=== PATIENT | male | born 1945 | race Caucasian/White ===

== ENCOUNTER 2019-09-29 11:08 | Inpatient (IN) | payer BC, OTHER ==
[~2019-09-29] VITALS: Ht 177.8 cm; Wt 69.9 kg
--- OUTSIDE RECORDS SUMMARY | 2019-09-29 11:12 | XMS REPORT | Clinical Summary ---
Author Author [facility] Address Unknown Phone Unavailable Care Team Providers Care Fireproof Door Assembler Name Role Phone Akira Velasquez MD PCP [phone] Allergies Comments Active Allergy Reactions Severity Noted Date Vomiting Cauliflower Other (See 01/20/2017 Comments) Detergent gain: swelling of lips and face Soap Swelling 01/20/2017 Medications End Date Status Medication Sig Dispensed Refills Start Date Active PROAIR HFA 90 Inhale 2 0 mcg/actuation inhaler puffs every 6 7 (six) hours as needed. Active gabapentin (NEURONTIN) Take 600 mg 0 01 600 mg tablet by mouth 3 7 (three) times a day. Active pantoprazole (PROTONIX) Take 40 mg by 0 40 MG EC tablet mouth daily. 7 Active aspirin (ECOTRIN) 81 MG Take 81 mg by 0 enteric coated tablet mouth daily. Active simvastatin (ZOCOR) 40 MG Take 40 mg by 0 tablet mouth nightly. Active lisinopril Take 1 tablet 30 tablet 0 (PRINIVIL,ZESTRIL) 10 mg (10 mg total) 8 tablet by mouth daily for 30 days. Active metFORMIN (GLUCOPHAGE) 0 500 mg tablet 9 Active sildenafil (VIAGRA) 100 1 MG tablet 9 Active SPIRIVA WITH HANDIHALER Place 1 0 18 mcg per inhalation capsule into 9 capsule inhaler and inhale once daily. Active metoprolol tartrate Take 0.5 30 tablet 0 (LOPRESSOR) 25 mg tablet tablets (12.5 9 mg total) by mouth 2 (two) times a day. 10/25/2019 Active DULoxetine (CYMBALTA) 30 Take 1 30 capsule 0 0 MG capsule capsule (30 0 mg total) by mouth daily for 30 days. 10/25/2019 Active sodium chloride 1 gram Take 1 tablet 60 tablet 0 0 tablet (1 g total) 0 by mouth 2 (two) times a day with meals for 30 days. 10/25/2019 Active collagenase (Santyl) Apply 30 g 1 09/24 ointment topically 0 daily for 30 days. Active calcium alginate-honey Apply 1 60 each 2 3/4 X 12 " bandage application 0 topically as needed (s needed during wound care). 09/25/2019 Discontinued (Stop Taking at Discharge) DULoxetine (CYMBALTA) 60 Take 60 mg by 0 11/21 MG capsule mouth daily. 7 03/10/2019 Discontinued (Reorder) metoprolol tartrate Take 25 mg by 0 (LOPRESSOR) 25 mg tablet mouth 2 (two) times a day. 05/26/2019 Discontinued (Stop Taking at Discharge) traZODone (DESYREL) 100 300 mg 0 MG tablet nightly. 8 11/24/2018 Discontinued (Stop Taking at Discharge) HYDROcodone-acetaminophen Take 1 tablet 0 (NORCO) 5-325 mg per by mouth tablet every 6 (six) hours as needed for moderate pain. 09/25/2019 Discontinued (Stop Taking at Discharge) clonAZEPAM (KlonoPIN) 1 Take 1 mg by 0 MG tablet mouth 3 9 (three) times a day as needed. for anxiety 11/24/2018 Discontinued (Stop Taking at Discharge) traMADol (ULTRAM) 50 mg TAKE 1 TABLET 0 tablet BY MOUTH 4 9 TIMES DAILY NEEDED FOR PAIN 11/28/2018 predniSONE (DELTASONE) 20 Take 2 6 tablet 0 mg tablet tablets (40 9 mg total) by mouth daily for 3 days. 03/15/2019 methylPREDNISolone follow 21 tablet 0 01 (MEDROL, KENDELL,) 4 mg package 9 tablet directions 03/17/2019 nicotine (NICODERM CQ) 21 Place 1 patch 7 patch 0 mg/24 hr on the skin 9 daily for 7 days. 04/13/2019 HYDROcodone-acetaminophen Take 1 tablet 20 tablet 0 (NORCO) 10-325 mg per by mouth 9 tabletIndications: acute every 8 pain (eight) hours as needed for moderate pain (pain) for up to 5 days .Acute Pain. Max Daily Amount: 3 tablets 04/11/2019 levoFLOXacin (LEVAQUIN) Take 1 tablet 3 tablet 0 500 MG tablet (500 mg 9 total) by mouth daily for 3 days. 05/02/2019 metroNIDAZOLE (FLAGYL) Take 1 tablet 21 tablet 0 1 500 MG tablet (500 mg 9 total) by mouth 3 (three) times a day for 7 days. 05/30/2019 azithromycin (ZITHROMAX) Take 2 6 tablet 0 0 250 MG tablet tablets the 0 first day, then 1 tablet daily for 4 days. 05/31/2019 predniSONE (DELTASONE) 20 Take 1 tablet 5 tablet 0 mg tablet (20 mg total) 0 by mouth daily for 5 days. 09/25/2019 Discontinued DULoxetine (CYMBALTA) 30 Take 1 30 capsule 0 0 MG capsule capsule (30 0 mg total) by mouth daily for 30 days. 09/25/2019 Discontinued (Stop Taking at Discharge) sodium chloride 1 gram Take 1 tablet 42 tablet 0 0 tablet (1 g total) 0 by mouth 3 (three) times a day with meals for 14 days. 09/25/2019 Discontinued sodium chloride 1 gram Take 1 tablet 60 tablet 0 0 tablet (1 g total) 0 by mouth 2 (two) times a day with meals for 30 days. Active Problems Problem Noted Date Hyponatremia 09/25/2019 Electrolyte abnormality 09/21/2019 Fall 09/20/2019 COPD exacerbation 03/09/2019 Acute metabolic encephalopathy 11/24/2018 Altered mental state 2018 Shortness of breath 2018 Acute respiratory failure with hypercapnia 9 Chest pain 06/01/2018 Alcohol abuse 06/01/2018 Altered mental status 02/28/2018 Alcohol withdrawal syndrome, with delirium 8 Hypoxia 11/13/2017 Chronic respiratory failure with hypoxia 11/13/2017 COPD with acute exacerbation 11/11/2017 Acute on chronic respiratory failure with hypercapnia 10/29/2017 Respiratory failure 10/29/2017 Altered mental status 10/28/2017 COPD (chronic obstructive pulmonary disease) 018 Stable angina pectoris 05/07/2017 Hypertension Depression Coronary artery disease Diabetes mellitus Encounters Care Team Description Date Type Specialty Jaycob Agarwal MD Roberts, Matthew Thomas, DO Rizvi, Farhan, MD Neela, Sravanthi Parrish MD Hyponatremia (Primary Dx); Fall, initial encounter; Electrolyte abnormality 09/20/2019 Hospital General Surgery - Encounter 09/25/2019 09/20/2019 Travel Akira Velasquez MD Thoracic aortic aneurysm, ruptured (HCC) (Primary Dx) 08/11/2019 Transcribe Access Orders Hubert Babin MD Abouelseoud, Tanseem Hamad Mohamed A, MD Joglekar, Swati, MD COPD exacerbation (HCC) (Primary Dx) 05/25/2019 Emergency General Internal Dc dicine - 05/26/2019 Lane Ramírez MD Epigastric abdominal pain (Primary Dx); Pancreatic cyst; Hyponatremia; Diarrhea, unspecified type 04/25/2019 Emergency Emergency Medicine Wale Morgan DO 04/08/2019 Anticoagulation General Internal Dc dicine Visit Hubert Babin MD Roberts, Matthew Thomas, DO COPD exacerbation (HCC) (Primary Dx) 04/05/2019 Hospital General Internal Dc dicine - Encounter 04/08/2019 Mack Ruvalcaba MD Rizvi, Farhan, MD COPD exacerbation (HCC) (Primary Dx) 03/09/2019 Emergency General Internal Dc dicine - 03/10/2019 Jaycob Agarwal MD Rizvi, Farhan, MD Bavare, Arusha Amod, MD Shortness of breath (Primary Dx); Chronic obstructive pulmonary disease with acute exacerbation (HCC) 2018 [facility] General Internal Dc dicine - Encounter 11/24/2018 2018 Travel after 09/28/2018 Immunizations Name Administration Dates Next Due FLUCELVAX QUAD PF 03/10/2019, 01/24/2018, 10/2016 Pneumococcal Conjugate 03/10/2019 (Deferred: - yang brown states he just 14-Valent now remembers he received w ithin 5 years), 10/08/2017 Social History Date Tobacco Use Types Packs/Day Years Used Current Every Day Smoker Cigarettes 3 60 Smokeless Tobacco: Never Used Tobacco Cessation: Ready to Quit: No; Co unseling Given: Yes Comments: started at 11 years of age Drinks/Week oz/Week Comments Alcohol Use 6 Cans of beer 6.0 daily Yes Sex Assigned at Date Recorded Not on file Industry Job Start Date Occupation Not on file Not on file Not on file Travel End Travel History Travel Start No recent travel history available. Date Recorded COVID-19 Exposure Response 09/20/2019 5:07 PM CDT In the last month, have you been in contact with No / Unsure someone who was confirmed or suspected to have Coronavirus / COVID-19? Last Filed Vital Signs Reading Time Taken Comments Vital Sign 138/76 09/25/2019 3:49 PM CDT Blood Pressure 82 09/25/2019 3:49 PM CDT Pulse 37 C (98.6 F) 09/25/2019 3:49 PM CDT Temperature 20 09/25/2019 3:49 PM CDT Respiratory Rate 95% 09/25/2019 3:49 PM CDT Oxygen Saturation - - Inhaled Oxygen Concentration 68 kg (150 lb) 09/20/2019 2:37 PM CDT Weight 177.8 cm (5' 10") 09/20/2019 2:37 PM CDT Height 21.52 09/20/2019 2:37 PM CDT Body Mass Index Plan of Treatment Health Maintenance Due Date Last Done Comments DIABETIC RETINAL EYE EXAM 1945 DIABETIC FOOT EXAM 1956 URINE MICROALBUMIN 1956 COLONOSCOPY SCREENING 1996 SHINGLES VACCINES (#1) 1996 65+ PNEUMOCOCCAL VACCINE 10/08/2018 10/08/2017 (2 of 2 - PPSV23) INFLUENZA VACCINE 12/19/2019 03/10/2019, 01/24/2018, 01/23/2017 Procedures Comments Procedure Name Priority Date/Time Associated Diag nosis POC GLUCOSE Routine 09/25/2019 11:53 AM CDT POC GLUCOSE Routine 09/25/2019 6:12 AM CDT ESTIMATED GFR Routine 09/25/2019 4:52 AM CDT CBC HEMOGRAM Routine 09/25/2019 4:52 AM CDT MAGNESIUM LEVEL Routine 09/25/2019 4:52 AM CDT BASIC METABOLIC PANEL Routine 09/25/2019 4:52 AM CDT POC GLUCOSE Routine 09/24/2019 8:29 PM CDT POC GLUCOSE Routine 09/24/2019 5:21 PM CDT CBC HEMOGRAM Routine 09/24/2019 12:03 PM CDT POC GLUCOSE Routine 09/24/2019 11:44 AM CDT TOTAL IRON BINDING Routine 09/24/2019 CAPACITY 11:10 AM CDT FERRITIN LEVEL Routine 09/24/2019 11:10 AM CDT POC GLUCOSE Routine 09/24/2019 6:04 AM CDT ESTIMATED GFR Routine 09/24/2019 4:28 AM CDT MAGNESIUM LEVEL Routine 09/24/2019 4:28 AM CDT BASIC METABOLIC PANEL Routine 09/24/2019 4:28 AM CDT POC GLUCOSE Routine 09/23/2019 8:57 PM CDT POC GLUCOSE Routine 09/23/2019 4:07 PM CDT POC GLUCOSE Routine 09/23/2019 11:38 AM CDT POC GLUCOSE Routine 09/23/2019 5:45 AM CDT ESTIMATED GFR Routine 09/23/2019 4:25 AM CDT CBC HEMOGRAM Routine 09/23/2019 4:25 AM CDT MAGNESIUM LEVEL Routine 09/23/2019 4:25 AM CDT BASIC METABOLIC PANEL Routine 09/23/2019 4:25 AM CDT POC GLUCOSE Routine 09/22/2019 8:20 PM CDT POC GLUCOSE Routine 09/22/2019 4:01 PM CDT POC GLUCOSE Routine 09/22/2019 11:42 AM CDT POC GLUCOSE Routine 09/22/2019 6:03 AM CDT ESTIMATED GFR Routine 09/22/2019 5:24 AM CDT PHOSPHORUS LEVEL Routine 09/22/2019 5:24 AM CDT MAGNESIUM LEVEL Routine 09/22/2019 5:24 AM CDT BASIC METABOLIC PANEL Routine 09/22/2019 5:24 AM CDT SODIUM LEVEL, URINE, Routine 09/22/2019 RANDOM 2:37 AM CDT PROTEIN, URINE, RANDOM Routine 09/22/2019 2:37 AM CDT CREATININE LEVEL, URINE, Routine 09/22/2019 RANDOM 2:37 AM CDT OSMOLALITY, URINE Routine 09/22/2019 2:37 AM CDT URINALYSIS SCREEN AND Routine 09/22/2019 MICROSCOPY, WITH REFLEX 2:37 AM CDT TO CULTURE URINE CULTURE Routine 09/22/2019 2:37 AM CDT POC GLUCOSE Routine 09/21/2019 8:15 PM CDT MRI BRAIN WO CONTRAST Routine 09/21/2019 6:28 PM CDT POC GLUCOSE Routine 09/21/2019 4:32 PM CDT TTE COMPLETE, WO Routine 09/21/2019 CONTRAST, W DOPPLER 4:18 PM CDT (18985) SODIUM LEVEL Timed 09/21/2019 4:09 PM CDT ESTIMATED GFR Timed 09/21/2019 1:14 PM CDT BASIC METABOLIC PANEL Timed 09/21/2019 1:14 PM CDT TROPONIN Timed 09/21/2019 1:14 PM CDT OSMOLALITY, SERUM Routine 09/21/2019 1:14 PM CDT XR CHEST 2 VW Routine 09/21/2019 12:37 PM CDT TROPONIN Timed 09/21/2019 11:52 AM CDT POC GLUCOSE Routine 09/21/2019 10:57 AM CDT CREATINE KINASE, TOTAL Routine 09/21/2019 (CPK) 9:28 AM CDT TROPONIN Timed 09/21/2019 9:28 AM CDT OSMOLALITY, SERUM Routine 09/21/2019 9:[address] HEAD WO CONTRAST Routine 09/21/2019 9:25 AM CDT POC GLUCOSE Routine 09/21/2019 6:38 AM CDT ECG 12-LEAD Routine 09/21/2019 5:54 AM CDT HEMOGLOBIN A1C Routine 09/21/2019 5:19 AM CDT THYROID STIMULATING Routine 09/21/2019 HORMONE 5:19 AM CDT ESTIMATED GFR Routine 09/21/2019 5:19 AM CDT BASIC METABOLIC PANEL Routine 09/21/2019 5:19 AM CDT HC COMPLETE BLD COUNT Routine 09/21/2019 W/AUTO DIFF 5:19 AM CDT TROPONIN Timed 09/21/2019 3:17 AM CDT US DUPLEX VENOUS LOWER STAT 09/21/2019 EXTREMITY LEFT 12:45 AM CDT POC GLUCOSE Routine 09/20/2019 9:47 PM CDT TROPONIN Timed 09/20/2019 9:28 PM CDT ESTIMATED GFR STAT 09/20/2019 6:46 PM CDT LIPASE LEVEL STAT 09/20/2019 6:46 PM CDT B NATRIURETIC PEPTIDE STAT 09/20/2019 6:46 PM CDT TROPONIN STAT 09/20/2019 6:46 PM CDT HEPATIC FUNCTION PANEL STAT 09/20/2019 6:46 PM CDT BASIC METABOLIC PANEL STAT 09/20/2019 6:46 PM CDT HC COMPLETE BLD COUNT STAT 09/20/2019 W/AUTO DIFF 6:46 PM CDT XR KNEE 4+ VW LEFT STAT 09/20/2019 4:58 PM CDT XR TIBIA FIBULA 2 VW LEFT STAT 09/20/2019 4:57 PM CDT MANUAL DIFFERENTIAL Routine 05/26/2019 4:47 AM SOURCING ASSOCIATE ESTIMATED GFR Routine 05/26/2019 4:47 AM SOURCING ASSOCIATE CBC WITH PLATELET AND Routine 05/26/2019 DIFFERENTIAL 4:47 AM SOURCING ASSOCIATE COMPREHENSIVE METABOLIC Routine 05/26/2019 PANEL 4:47 AM SOURCING ASSOCIATE INFLUENZA ANTIGEN Routine 05/26/2019 4:00 AM SOURCING ASSOCIATE RESPIRATORY PATHOGEN Routine 05/26/2019 PANEL 4:00 AM SOURCING ASSOCIATE POC GLUCOSE Routine 05/25/2019 10:05 PM SOURCING ASSOCIATE HEMOGLOBIN A1C STAT 05/25/2019 9:38 PM SOURCING ASSOCIATE POC GLUCOSE Routine 05/25/2019 9:32 PM SOURCING ASSOCIATE LACTIC ACID LEVEL, SEPSIS Timed 05/25/2019 - NOW AND REPEAT 2X EVERY 8:59 PM SOURCING ASSOCIATE 3 HOURS URINALYSIS SCREEN AND STAT 05/25/2019 MICROSCOPY, WITH REFLEX 7:26 PM SOURCING ASSOCIATE TO CULTURE URINE CULTURE STAT 05/25/2019 7:26 PM SOURCING ASSOCIATE LACTIC ACID LEVEL, SEPSIS Timed 05/25/2019 - NOW AND REPEAT 2X EVERY 6:06 PM SOURCING ASSOCIATE 3 HOURS CONSULT TO SEPSIS Routine 05/25/2019 COPD exacerb ation (HCC) RESPONSE TEAM 4:40 PM SOURCING ASSOCIATE ESTIMATED GFR Routine 05/25/2019 4:01 PM SOURCING ASSOCIATE COMPREHENSIVE METABOLIC Routine 05/25/2019 PANEL 4:01 PM SOURCING ASSOCIATE HC COMPLETE BLD COUNT Routine 05/25/2019 W/AUTO DIFF 4:01 PM SOURCING ASSOCIATE LACTIC ACID LEVEL, SEPSIS Timed 05/25/2019 - NOW AND REPEAT 2X EVERY 3:25 PM SOURCING ASSOCIATE 3 HOURS BLOOD CULTURE, AEROBIC & Routine 05/25/2019 ANAEROBIC 3:25 PM SOURCING ASSOCIATE BLOOD CULTURE, AEROBIC & Routine 05/25/2019 ANAEROBIC 3:21 PM SOURCING ASSOCIATE XR CHEST 1 VW PORTABLE STAT 05/25/2019 2:56 PM SOURCING ASSOCIATE ECG ED PRELIMINARY Routine 05/25/2019 INTERPRETATION 2:50 PM SOURCING ASSOCIATE ECG 12-LEAD STAT 05/25/2019 12:[address] ABDOMEN PELVIS W STAT 04/25/2019 CONTRAST 10:42 AM SOURCING ASSOCIATE URINE DRUGS OF ABUSE STAT 04/25/2019 SCREEN 10:11 AM SOURCING ASSOCIATE URINALYSIS SCREEN AND STAT 04/25/2019 MICROSCOPY, WITH REFLEX 10:11 AM SOURCING ASSOCIATE TO CULTURE URINE CULTURE STAT 04/25/2019 10:11 AM SOURCING ASSOCIATE TROPONIN Timed 04/25/2019 10:00 AM SOURCING ASSOCIATE ESTIMATED GFR STAT 04/25/2019 9:30 AM SOURCING ASSOCIATE LIPASE LEVEL STAT 04/25/2019 9:30 AM SOURCING ASSOCIATE COMPREHENSIVE METABOLIC STAT 04/25/2019 PANEL 9:30 AM SOURCING ASSOCIATE HC COMPLETE BLD COUNT STAT 04/25/2019 W/AUTO DIFF 9:30 AM SOURCING ASSOCIATE POC GLUCOSE Routine 04/08/2019 2:47 PM SOURCING ASSOCIATE POC GLUCOSE Routine 04/08/2019 11:28 AM SOURCING ASSOCIATE POC GLUCOSE Routine 04/08/2019 6:29 AM SOURCING ASSOCIATE ESTIMATED GFR Routine 04/08/2019 4:46 AM SOURCING ASSOCIATE BASIC METABOLIC PANEL Routine 04/08/2019 4:46 AM SOURCING ASSOCIATE POC GLUCOSE Routine 04/07/2019 8:19 PM SOURCING ASSOCIATE POC GLUCOSE Routine 04/07/2019 4:40 PM SOURCING ASSOCIATE XR HIP 2-3 VIEWS LEFT Routine 04/07/2019 3:00 PM SOURCING ASSOCIATE XR FEMUR 2 VW LEFT Routine 04/07/2019 2:59 PM SOURCING ASSOCIATE POC GLUCOSE Routine 04/07/2019 10:48 AM SOURCING ASSOCIATE ESTIMATED GFR Timed 04/07/2019 8:47 AM SOURCING ASSOCIATE BASIC METABOLIC PANEL Timed 04/07/2019 8:47 AM SOURCING ASSOCIATE POC GLUCOSE Routine 04/07/2019 6:30 AM SOURCING ASSOCIATE POC GLUCOSE Routine 04/06/2019 8:38 PM SOURCING ASSOCIATE ESTIMATED GFR Timed 04/06/2019 8:36 PM SOURCING ASSOCIATE BASIC METABOLIC PANEL Timed 04/06/2019 8:36 PM SOURCING ASSOCIATE POC GLUCOSE Routine 04/06/2019 4:33 PM SOURCING ASSOCIATE OSMOLALITY, URINE Routine 04/06/2019 11:08 AM SOURCING ASSOCIATE SODIUM LEVEL, URINE, Routine 04/06/2019 RANDOM 11:08 AM SOURCING ASSOCIATE POC GLUCOSE Routine 04/06/2019 11:[address] ANGIOGRAM ABDOMEN Routine 04/06/2019 PELVIS W AND OR WO 9:42 AM SOURCING ASSOCIATE CONTRAST ESTIMATED GFR Routine 04/06/2019 6:59 AM SOURCING ASSOCIATE PHOSPHORUS LEVEL Routine 04/06/2019 6:59 AM SOURCING ASSOCIATE MAGNESIUM LEVEL Routine 04/06/2019 6:59 AM SOURCING ASSOCIATE COMPREHENSIVE METABOLIC Routine 04/06/2019 PANEL 6:59 AM SOURCING ASSOCIATE CBC WITH PLATELET AND Routine 04/06/2019 DIFFERENTIAL 6:59 AM SOURCING ASSOCIATE POC GLUCOSE Routine 04/06/2019 6:23 AM SOURCING ASSOCIATE ESTIMATED GFR Timed 04/06/2019 12:28 AM SOURCING ASSOCIATE BASIC METABOLIC PANEL Timed 04/06/2019 12:28 AM SOURCING ASSOCIATE TROPONIN Timed 04/06/2019 12:28 AM SOURCING ASSOCIATE RESPIRATORY PATHOGEN Routine 04/05/2019 PANEL 10:41 PM SOURCING ASSOCIATE POC GLUCOSE Routine 04/05/2019 8:26 PM SOURCING ASSOCIATE THYROID STIMULATING Routine 04/05/2019 HORMONE 7:33 PM SOURCING ASSOCIATE OSMOLALITY, SERUM Routine 04/05/2019 7:33 PM SOURCING ASSOCIATE ESTIMATED GFR Timed 04/05/2019 7:33 PM SOURCING ASSOCIATE BASIC METABOLIC PANEL Timed 04/05/2019 7:33 PM SOURCING ASSOCIATE TROPONIN Timed 04/05/2019 7:33 PM SOURCING ASSOCIATE POC GLUCOSE Routine 04/05/2019 5:26 PM SOURCING ASSOCIATE ECG 12-LEAD Routine 04/05/2019 4:30 PM SOURCING ASSOCIATE TROPONIN Timed 04/05/2019 2:02 PM SOURCING ASSOCIATE ESTIMATED GFR Timed 04/05/2019 2:02 PM SOURCING ASSOCIATE BASIC METABOLIC PANEL Timed 04/05/2019 2:02 PM SOURCING ASSOCIATE HEMOGLOBIN A1C Routine 04/05/2019 12:01 PM SOURCING ASSOCIATE LIPID PANEL Routine 04/05/2019 12:01 PM SOURCING ASSOCIATE OSMOLALITY, SERUM Routine 04/05/2019 12:01 PM SOURCING ASSOCIATE ESTIMATED GFR Timed 04/05/2019 12:01 PM SOURCING ASSOCIATE BASIC METABOLIC PANEL Timed 04/05/2019 12:01 PM SOURCING ASSOCIATE POC GLUCOSE Routine 04/05/2019 11:[address] CHEST W CONTRAST STAT 04/05/2019 9:40 AM SOURCING ASSOCIATE SODIUM LEVEL, URINE, Routine 04/05/2019 RANDOM 9:33 AM SOURCING ASSOCIATE OSMOLALITY, URINE Routine 04/05/2019 9:33 AM SOURCING ASSOCIATE TROPONIN Timed 04/05/2019 8:14 AM SOURCING ASSOCIATE PHOSPHORUS LEVEL Timed 04/05/2019 8:14 AM SOURCING ASSOCIATE MAGNESIUM LEVEL Timed 04/05/2019 8:14 AM SOURCING ASSOCIATE XR CHEST 2 VW STAT 04/05/2019 6:41 AM SOURCING ASSOCIATE ECG ED PRELIMINARY Routine 04/05/2019 INTERPRETATION 6:11 AM SOURCING ASSOCIATE OK CRITICAL CARE, E/M Routine 04/05/2019 30-74 MINUTES 6:11 AM SOURCING ASSOCIATE ESTIMATED GFR STAT 04/05/2019 5:30 AM SOURCING ASSOCIATE B NATRIURETIC PEPTIDE STAT 04/05/2019 5:30 AM SOURCING ASSOCIATE TROPONIN STAT 04/05/2019 5:30 AM SOURCING ASSOCIATE HC COMPLETE BLD COUNT STAT 04/05/2019 W/AUTO DIFF 5:30 AM SOURCING ASSOCIATE COMPREHENSIVE METABOLIC STAT 04/05/2019 PANEL 5:30 AM SOURCING ASSOCIATE ECG 12-LEAD Routine 04/05/2019 5:26 AM SOURCING ASSOCIATE ECG 12-LEAD STAT 04/05/2019 5:26 AM SOURCING ASSOCIATE POC GLUCOSE Routine 03/10/2019 11:55 AM CDT POC GLUCOSE Routine 03/10/2019 6:14 AM CDT ESTIMATED GFR Routine 03/10/2019 4:33 AM CDT BASIC METABOLIC PANEL Routine 03/10/2019 4:33 AM CDT POC GLUCOSE Routine 03/09/2019 8:58 PM CDT POC GLUCOSE Routine 03/09/2019 3:55 PM CDT RESPIRATORY PATHOGEN Routine 03/09/2019 PANEL 12:31 PM CDT TTE COMPLETE, WO Routine 03/09/2019 CONTRAST, W DOPPLER 11:52 AM CDT (26664) POC GLUCOSE Routine 03/09/2019 10:45 AM CDT TROPONIN Timed 03/09/2019 6:07 AM CDT XR CHEST 1 VW PORTABLE STAT 03/09/2019 1:54 AM CDT ECG ED PRELIMINARY Routine 03/09/2019 INTERPRETATION 1:42 AM CDT ESTIMATED GFR STAT 03/09/2019 1:37 AM CDT B NATRIURETIC PEPTIDE STAT 03/09/2019 1:37 AM CDT TROPONIN STAT 03/09/2019 1:37 AM CDT COMPREHENSIVE METABOLIC STAT 03/09/2019 PANEL 1:37 AM CDT HC COMPLETE BLD COUNT STAT 03/09/2019 W/AUTO DIFF 1:37 AM CDT ECG 12-LEAD STAT 03/09/2019 1:32 AM CDT POC GLUCOSE Routine 11/24/2018 11:35 AM CDT LACTIC ACID LEVEL STAT 11/24/2018 11:10 AM CDT POC GLUCOSE Routine 11/24/2018 7:22 AM CDT ESTIMATED GFR Routine 11/24/2018 5:50 AM CDT HC COMPLETE BLD COUNT Routine 11/24/2018 W/AUTO DIFF 5:50 AM CDT BASIC METABOLIC PANEL Routine 11/24/2018 5:50 AM CDT POC GLUCOSE Routine 11/23/2018 4:15 PM CDT POC GLUCOSE Routine 11/23/2018 11:23 AM CDT POC GLUCOSE Routine 11/23/2018 7:02 AM CDT PHOSPHORUS LEVEL Routine 11/23/2018 6:12 AM CDT MAGNESIUM LEVEL Routine 11/23/2018 6:12 AM CDT ESTIMATED GFR Routine 11/23/2018 6:12 AM CDT BASIC METABOLIC PANEL Routine 11/23/2018 6:12 AM CDT HC COMPLETE BLD COUNT Routine 11/23/2018 W/AUTO DIFF 6:12 AM CDT POC GLUCOSE Routine 11/22/2018 8:[address] ANGIOGRAM PE CHEST Routine 11/22/2018 6:46 PM CDT POC GLUCOSE Routine 11/22/2018 4:48 PM CDT LACTIC ACID LEVEL Timed 11/22/2018 1:35 PM CDT POC GLUCOSE Routine 11/22/2018 11:18 AM CDT D-DIMER STAT 11/22/2018 9:45 AM CDT ESTIMATED GFR Routine 11/22/2018 9:45 AM CDT PHOSPHORUS LEVEL Routine 11/22/2018 9:45 AM CDT MAGNESIUM LEVEL Routine 11/22/2018 9:45 AM CDT BASIC METABOLIC PANEL Routine 11/22/2018 9:45 AM CDT HC COMPLETE BLD COUNT Routine 11/22/2018 W/AUTO DIFF 9:45 AM CDT POC GLUCOSE Routine 11/22/2018 6:39 AM CDT LACTIC ACID LEVEL Timed 11/22/2018 5:51 AM CDT LACTIC ACID LEVEL Timed 11/22/2018 12:14 AM CDT POC GLUCOSE Routine 11/21/2018 9:51 PM CDT LACTIC ACID LEVEL STAT 11/21/2018 5:50 PM CDT POC GLUCOSE Routine 11/21/2018 5:23 PM CDT URINE DRUGS OF ABUSE STAT 11/21/2018 SCREEN 1:49 PM CDT POC GLUCOSE Routine 11/21/2018 1:18 PM CDT BLOOD CULTURE, AEROBIC & Routine 11/21/2018 ANAEROBIC 12:59 PM CDT BLOOD CULTURE, AEROBIC & Routine 11/21/2018 ANAEROBIC 12:50 PM CDT CONSULT TO SEPSIS Routine 11/21/2018 Shortness of breath RESPONSE TEAM 11:12 AM CDT AMMONIA LEVEL Routine 11/21/2018 10:23 AM CDT PHOSPHORUS LEVEL STAT 11/21/2018 10:05 AM CDT MAGNESIUM LEVEL STAT 11/21/2018 10:05 AM CDT ESTIMATED GFR STAT 11/21/2018 10:05 AM CDT COMPREHENSIVE METABOLIC STAT 11/21/2018 PANEL 10:05 AM CDT LACTIC ACID LEVEL STAT 11/21/2018 10:05 AM CDT POC GLUCOSE Routine 11/21/2018 8:14 AM CDT SALICYLATE LEVEL Routine 11/21/2018 7:18 AM CDT ALCOHOL LEVEL, BLOOD Routine 11/21/2018 7:18 AM CDT MANUAL DIFFERENTIAL Routine 11/21/2018 7:18 AM CDT ESTIMATED GFR Routine 11/21/2018 7:18 AM CDT BASIC METABOLIC PANEL Routine 11/21/2018 7:18 AM CDT CBC WITH PLATELET AND Routine 11/21/2018 DIFFERENTIAL 7:18 AM CDT POC GLUCOSE Routine 11/21/2018 1:[address] HEAD WO CONTRAST Routine 11/21/2018 1:05 AM CDT TROPONIN Timed 11/21/2018 12:05 AM CDT TROPONIN Timed 2018 5:42 PM CDT ARTERIAL BLOOD GAS STAT 2018 4:35 PM CDT URINALYSIS SCREEN AND Routine 2018 MICROSCOPY, WITH REFLEX 3:21 PM CDT TO CULTURE XR CHEST 1 VW PORTABLE STAT 2018 2:12 PM CDT LIPID PANEL Routine 2018 2:10 PM CDT HEMOGLOBIN A1C Routine 2018 2:10 PM CDT ESTIMATED GFR STAT 2018 2:10 PM CDT B NATRIURETIC PEPTIDE STAT 2018 2:10 PM CDT TROPONIN STAT 2018 2:10 PM CDT LIPASE LEVEL STAT 2018 2:10 PM CDT HEPATIC FUNCTION PANEL STAT 2018 2:10 PM CDT BASIC METABOLIC PANEL STAT 2018 2:10 PM CDT HC COMPLETE BLD COUNT STAT 2018 W/AUTO DIFF 2:10 PM CDT ECG 12-LEAD STAT 2018 2:01 PM CDT ARTERIAL BLOOD GAS STAT 2018 2:01 PM CDT ECG ED PRELIMINARY Routine 2018 INTERPRETATION 1:51 PM CDT after 09/28/2018 Results * POC glucose (09/25/2019 11:53 AM CDT) Only the most recent of 54 results within the time period is included. POC glucose 103 (H) 65 - 100 mg/dL [place] Comment: [employer] Extrusion Engineer Name: Stacey Patel MORIARTY Device ID: [id number] [facility] Specimen Blood Performing Organization Address City/State/Zipcode Ph one Number [place] [facility] [address] [place] [address] PATHOLOGY AND GENOMIC MEDICINE [place] [facility] [address] [place] [address] HOSPITAL * Estimated GFR (09/25/2019 4:52 AM CDT) Only the most recent of 27 results within the time period is included. [facility] Estimated GFR 89 mL/min/1.73 m2 [place] Comment: [facility] [place], [place] G1 >=90 Normal or high G2 60-89 Mildly decreased G3a 45-59 Mildly to moderately decreased G3b 30-44 Moderately to severely decreased G4 15-29 Severely decreased G5 <15 Kidney failure The eGFR was calculated using the Chronic Kidney Disease Epidemiology Collaboration (CKD-EPI) equation. Interpretation is based on recommendations of the National Kidney Foundation-Kidney Disease Outcomes Quality Initiative (NKF-KDOQI) published in 2014. Specimen Performing Organization Address City/[facility] [place] [address] PATHOLOGY AND GENOMIC MEDICINE [address] * CBC hemogram (09/25/2019 4:52 AM CDT) Only the most recent of 3 results within the time period is included. [facility] WBC 7.2 4.2 - 11.0 k/uL [facility] [place] RBC 3.12 (L) 4.04 - 5.86 m/uL [facility] HGB 10.2 (L) 13.0 - 17.3 g/dL [facility] [place] HCT 29.7 (L) 34.0 - 45.0 % [facility] [place] MCV 95.2 80.0 - 98.0 fL [facility] MCH 32.7 27.0 - 34.0 pg [facility] MCHC 34.3 31.5 - 36.5 g/dL [facility] RDW - SD 39.3 37.0 - 51.0 fL [facility] MPV 9.9 7.4 - 10.4 fL [facility] Platelet count 166 150 - 400 k/uL [facility] Nucleated RBC 0.00 /100 WBC [facility] [place] Specimen Blood Performing Organization Address City/[facility] Ph one Number [place] [facility] [address] [place] [address] PATHOLOGY AND GENOMIC MEDICINE [address] * Magnesium level (09/25/2019 4:52 AM CDT) Only the most recent of 9 results within the time period is included. Magnesium 1.40 (L) 1.60 - 2.40 mg/dL [facility] [place] Specimen Blood Performing Organization Address City/[facility] Ph one Number [place] [facility] [place] [address] PATHOLOGY AND GENOMIC MEDICINE [address] * Basic metabolic panel (09/25/2019 4:52 AM CDT) Only the most recent of 20 results within the time period is included. Sodium 132 (L) 135 - 150 mEq/L [facility] Potassium 3.9 3.5 - 5.0 mEq/L [facility] Chloride 95 (L) 98 - 112 mEq/L [facility] CO2 26 24 - 31 mmol/L [facility] Anion gap 11@ANIO 7 - 15 mEq/L [facility] [place] BUN 19 (H) 7 - 18 mg/dL [facility] [place] Creatinine 0.80 0.70 - 1.20 mg/dL [facility] Glucose 96 65 - 100 mg/dL [facility] [place] Calcium 8.9 8.8 - 10.2 mg/dL [facility] [place] Specimen Blood Performing Organization Address City/State/[facility] Ph one Number [place] [facility] [place] [address] PATHOLOGY AND GENOMIC MEDICINE [address] * Total iron binding capacity (09/24/2019 11:10 AM CDT) Iron level 25 (L) 59 - 158 ug/dL [facility] Iron binding 247 (L) 271 - 474 ug/dL [facility] % Saturation 10.1 (L) 20.0 - 40.0 % [facility] [place] Specimen Blood Performing Organization Address City/State/[facility] Ph one Number [place] [facility] [address] [place] [address] PATHOLOGY AND GENOMIC MEDICINE [address] * Ferritin level (09/24/2019 11:10 AM CDT) Ferritin level 139 30 - 400 ng/mL [facility] Specimen Serum Performing Organization Address City/State/[facility] Ph one Number [place] [facility] [address] [place] [address] PATHOLOGY AND GENOMIC MEDICINE [address] * Phosphorus level (09/22/2019 5:24 AM CDT) Only the most recent of 6 results within the time period is included. Pathologist [facility] Phosphorus 2.9 2.4 - 4.5 mg/dL [facility] Specimen Blood Performing Organization Address City/State/[facility] Ph one Number [place] [facility] [address] [place] [address] PATHOLOGY AND GENOMIC MEDICINE [address] * Urinalysis screen and microscopy, with reflex to culture (09/22/2019 2:37 AM CDT) Only the most recent of 4 results within the time period is included. Specimen site Clean catch [facility] Color, UA Yellow [facility] Appearance, UA Clear [facility] Specific 1.016 1.001 - 1.035 [place] gravity, UA [facility] pH, UA 6.0 5.0 - 8.5 [facility] Protein, UA Negative Negative [facility] Glucose, UA Negative Negative [facility] Ketones, UA Negative Negative [facility] Bilirubin, UA Negative Negative [facility] [place] Blood, UA Negative Negative [facility] Nitrite, UA Negative Negative [facility] Urobilinogen, 4.0 (A) <2.0 [facility] Leukocyte Negative Negative [place] esterase, UA [facility] WBC, UA <1 0 - 1 /HPF [facility] RBC, UA <1 0 - 5 /HPF [facility] Bacteria, UA None seen None seen [facility] Yeast, UA None seen [facility] Yeast with None seen [place] pseudohyphae, [facility] Specimen Urine Performing Organization Address City/State/[facility] Ph one Number [place] [facility] [address] [place] [address] PATHOLOGY AND GENOMIC MEDICINE [address] * Sodium level, urine, random (09/22/2019 2:37 AM CDT) Only the most recent of 3 results within the time period is included. Sodium, urine, 68 mEQ/L [facility] Specimen Urine Performing Organization Address City/[facility] Ph one Number [place] [facility] [place] [address] [place] [address] PATHOLOGY AND GENOMIC MEDICINE [address] * Protein, urine, random (09/22/2019 2:37 AM CDT) Protein, urine 10 mg/dL [facility] Specimen Urine Performing Organization Address City/[facility] Ph one Number [place] [facility] [address] [place] [address] PATHOLOGY AND GENOMIC MEDICINE [address] * Osmolality, urine (09/22/2019 2:37 AM CDT) Only the most recent of 3 results within the time period is included. Osmolality, 479 50 - 1,400 mOsm/kg [facility] Specimen Urine Performing Organization Address City/[facility] Ph one Number [facility] DEPARTMENT OF [address] [place] [address] PATHOLOGY AND GENOMIC MEDICINE [facility] [address] [place] [address] HOSPITAL * Creatinine level, urine, random (09/22/2019 2:37 AM CDT) Creatinine, 122 mg/dL [place] urine, random [facility] Specimen Urine Performing Organization Address City/[facility] Ph one [facility] [place] [facility] [address] [place] [address] PATHOLOGY AND GENOMIC MEDICINE [facility] [address] [place] [address] HOSPITAL * Urine culture (09/22/2019 2:37 AM CDT) Only the most recent of 3 results within the time period is included. Urine culture SEE COMMENTComment: [place] Bacteriuria screen negative. [facility] Specimen Urine Performing Organization Address [facility] Ph one Number [place] [facility] [address] [place] [phone] PATHOLOGY AND GENOMIC MEDICINE [facility] [address] [place] [address] HOSPITAL * MRI Brain Wo Contrast (09/21/2019 6:28 PM CDT) Specimen Narrative Performed At [facility] EXAMINATION: MRI BRAIN WO CONTRAST CLINICAL HISTORY: Syncope recurrent COMPARISON: MRI brain 10/28/2017. TECHNIQUE: Multiplanar and multisequenc e MRI imaging of the brain was obtained without contrast. FINDINGS: No significant interval change appearin g since the prior MRI from 2018. Similar scattered T2/FLAIR hyperintensities are noted throughout the periventricular and subcortical white matter, nonspecific b ut likely related to mild chronic microvascular ischemic changes. No restricted diffusi on identified to indicate recent infarct. No susceptibility identified to suggest hemosiderin deposition from prior hemorrhage. No intra or extra-axial flu id collections identified. No mass, mass effect, or midline shift is seen. The basal ganglia, thalami, midbrain, p ons and cervicomedullary junction are unremarkable. The ventricles and sulci are unremarkable for patient's age. Sella turcica is normal in appearance . The basal cisterns are patent. The calvarium appears intact. The major intracranial vascular flow vo ids are present. The orbital contents are symmetric and unremarkable. Mild inflammatory mucosal thickening is noted throughout the righ t maxillary sinus. The remaining paranasal sinuses are unremarkable. Sma ll left mastoid effusion. The right mastoid air cells and middle ear cavities are clear. IMPRESSION: No acute intracranial abnormality ident ified. Similar nonspecific white matter findings when compared with the prior M RI from 2018, likely reflecting mild chronic microvascular ischemic changes. [facility]-[id number] Procedure Note Hm Interface, Radiology Results Incoming - 09/21/2019 6:35 PM CDT EXAMINATION: MRI BRAIN WO CONTRAST CLINICAL HISTORY: Syncope recurrent COMPARISON: MRI brain 10/28/2017. TECHNIQUE: Multiplanar and multisequence MRI imaging of the brain was obtained without contrast. FINDINGS: No significant interval change appearing since the prior MRI from 2018. Similar scattered T2/FLAIR hyperintensities are noted throughout the periventricular and subcortical white matter, nonspecific but likely related to mild chronic microvascular ischemic changes. No restricted diffusion identified to indicate recent infarct. No susceptibility identified to suggest hemosiderin deposition from prior hemorrhage. No intra or extra-axial fluid collections identified. No mass, mass effect, or midline shift is seen. The basal ganglia, thalami, midbrain, ingrid and cervicomedullary junction are unremarkable. The ventricles and sulci are unremarkable for patient's age. Sella turcica is normal in appearance. The basal cisterns are patent. The calvarium appears intact. The major intracranial vascular flow voids are present. The orbital contents are symmetric and unremarkable. Mild inflammatory mucosal thickening is noted throughout the right maxillary sinus. The remaining paranasal sinuses are unremarkable. Small left mastoid effusion. The right mastoid air cells and middle ear cavities are clear. IMPRESSION: No acute intracranial abnormality identified. Similar nonspecific white matter findings when compared with the prior MRI from 2018, likely reflecting mild chronic microvascular ischemic changes. [facility]-[id number] Performing Organization Address City/State/Zipcode Ph one Number [facility] [address] [place] [address] * Transthoracic Echocardiogram Complete, (w Contrast, Strain and 3D if needed) (09/21/2019 4:18 PM CDT) Ao Root 3.75 cm [facility] Diameter AoV Area, Vmax 2.24 cm2 [facility] AoV Area, VTI 2.09 cm2 [facility] AoV Mean PG 1.80 mmHg [facility] AoV Peak PG 3.14 mmHg [facility] AoV Vmax 0.95 m/s [facility] AoV VTI 0.20 m [facility] BSA Leal 1.83 m2 [facility] BSA 1.85 m2 [facility] IVS,d 0.84 cm [facility] IVS/LVPW,2D 0.99 [facility] Left Atrium 3.71 cm [facility] Dimension Anterior LV,d 4.25 cm [facility] LV EF,2D 58.60 % [facility] LV,s 3.17 cm [facility] LVOT area 3.14 cm2 [facility] LVOT Diam,S 2.00 cm [facility] LVOT Vmax 0.77 m/s [facility] LVOT VTI 0.11 m [facility] LVPWD,d 0.85 cm [facility] MV E A ratio 0.89 [facility] AoV area i VTI 1.13 cm2/m2 [facility] BSA Karen BMI 21.52 kg/m2 [facility] E wave 302.43 msec [facility] decelartion time MV Peak A Rolan 0.70 m/s [facility] MV valve area p 2.51 cm2 [facility] 1/2 method MV Peak E Rolan 0.62 m/s [facility] MV stenosis 87.71 ms [facility] pressure 1/2 time AV LVOT peak 1.61 mmHg [facility] gradient Ao Root 3.75 cm [facility] Diameter MV mean 0.48 mmHg [facility] gradient LV SYS VOL 40.02 ml [facility] LV MCKEON VOL 80.93 ml [facility] LV SI Teich 2D 22.15 ml/m2 [facility] LV SV Teich 2D 40.91 ml [facility] LV Vol s Teich 40.02 ml [facility] PSAX LVOT CI 1.40 l/min/m2 [facility] LVOT CO 2.59 l/min [facility] LVOT HR for 66.73 bpm [facility] LVOT CO LVOT SI 21.05 ml/m2 [facility] MR peak grad 1.71 mmHg [facility] MV Vmax 0.65 m [facility] MV VTI Tips 0.15 m [facility] BSA Haycock 1.83 m2 [facility] AoV Vmn 0.61 [facility] IVS s 2D 1.07 [facility] LV FS Teich 2D 25.47 [facility] MV AE ratio 1.13 [facility] LV FS Cube 2D 25.47 [facility] LVOT Vmn 0.33 [facility] Pt Size 177.80 [facility] Pt Wt 68.04 [facility] Aov area Vmn 2.20 cm2 [facility] LA A_P score P 1.88 [facility] LVOT mean grad 0.53 mmHg [facility] MAX Pred HR 147.17 [facility] 85 of MPHR 125.09 [facility] AoV area I VMN 1.19 cm2/m2 [facility] bsa Calc MPHR 147.17 bpm [facility] IVS pct thck 27.63 % [facility] PLAX LV SI Cube 2D 24.40 ml/m2 [facility] LV SV Cube 2D 45.07 ml [facility] LV vol d cube 76.91 ml [facility] 2D LV vol s cube 31.84 ml [facility] 2D LVPW pct thck 24.25 % [facility] PLAX LVPW s PLAX 1.05 cm [facility] MV Decel slope 2.05 m/s2 [facility] Pred Exer Dur 6.74 [facility] R1 Pred METS R1 7.08 [facility] Velocity Ratio 0.81 m/s [facility] (V1/V2) EF 50.55 % [facility] E/A ratio 0.89 [facility] Specimen Narrative Performed At [facility] Left ventricular systolic function i s normal. There is mild left ventricular Left Ventricular ejection fraction i s 55 - 60%. Left atrium size is mildly dilated. The mitral valve appears thickened. Spectral Doppler shows impaired rela xation pattern of left ventricular diastolic filling. Performing Organization Address City/[facility] Ph one Number [facility] [address] [place] [address], * Sodium level (09/21/2019 4:09 PM CDT) Sodium 127 (L) 135 - 150 mEq/L [facility] Specimen Blood Performing Organization Address City/State/[facility] Ph one Number [place] [facility] [address] [place] [address] PATHOLOGY AND GENOMIC MEDICINE [facility] [address] * Troponin (09/21/2019 1:14 PM CDT) Only the most recent of 17 results within the time period is included. Troponin 0.006 0.000 - 0.040 ng/mL [place] Comment: [place] In patients suspected of [place]IART[place] having a myocardial HOSPITAL infarction, along with all other appropriate clinical measures and actions including ECG and other diagnostics as appropriate, measure Ultra TnI at 0 hrs and at 3 hrs. Myocardial infarction VERY LIKELY The 0 hr TnI level is > 0.10 ng/mL Myocardial infarction LIKELY The 0 hr TnI level is > 0.04 ng/mL and 3 hr level is increased or decreased by at least 0.020 ng/mL Myocardial infarction VERY UNLIKELY Both the 0 hr and 3 hr TnI levels <= 0.04 ng/mL(within normal limits) OR 0 hr is > 0.04 ng/mL and 3 hr is increased OR decreased by less than 0.020 ng/mL Specimen Blood Performing Organization Address City/[facility] Ph one Number [place] [facility] [address] [place] [address] PATHOLOGY AND GENOMIC MEDICINE [facility] [address] * Osmolality, serum (09/21/2019 1:14 PM CDT) Only the most recent of 4 results within the time period is included. Pathologist [facility] Osmolality 265 (L) 275 - 295 mOsm/kg [facility] Specimen Blood Performing Organization Address City/[facility] Ph one Number [facility] DEPARTMENT OF [address] [place] [address] PATHOLOGY AND GENOMIC MEDICINE [address] * XR Chest 2 Vw (09/21/2019 12:37 PM CDT) Only the most recent of 2 results within the time period is included. Specimen Narrative Performed At EXAMINATION: XR CHEST 2 VW [facility] CLINICAL HISTORY: s p fall COMPARISON: 05/25/2019 IMPRESSION: No active disease in the chest. Lungs are clear. Cardiomediastinal silhouette is within normal limits. There is aortic arch calcification. No effusion or pneumothorax noted. Visualized osseous structures are intac t with hardware in the cervical spine. Eggshell calcification and embolization coils related to the spleen noted in the left upper abdomen. [id number] Procedure Note Hm Interface, Radiology Results Incoming - 09/21/2019 12:42 PM CDT EXAMINATION: XR CHEST 2 VW CLINICAL HISTORY: s p fall COMPARISON: 05/25/2019 IMPRESSION: No active disease in the chest. Lungs are clear. Cardiomediastinal silhouette is within normal limits. There is aortic arch calcification. No effusion or pneumothorax noted. Visualized osseous structures are intact with hardware in the cervical spine. Eggshell calcification and embolization coils related to the spleen noted in the left upper abdomen. [facility]-[id number] Performing Organization Address City/[facility] Ph one Number [facility] [address] [place] [address] * Creatine kinase, total (CPK) (09/21/2019 9:28 AM CDT) Creatine kinase 621 (H) 39 - 308 U/L [facility] [place] Specimen Blood Performing Organization Address City/[facility] Ph one Number [place] [facility] [address] [place] [address] PATHOLOGY AND GENOMIC MEDICINE [address] * CT Head Wo Contrast (09/21/2019 9:25 AM CDT) Only the most recent of 2 results within the time period is included. Specimen Narrative Performed At EXAMINATION: CT HEAD WO CONTRAST [facility] CLINICAL HISTORY: s p fall COMPARISON: November 21, 2018 TECHNIQUE: CT imaging was performed wit h iterative reconstruction technique and/or automated exposure control to re duce radiation dose. Findings: No intracranial hemorrhage, acute trans cortical ischemia, extra-axial fluid collections or parenchymal mass lesions . No skull fractures or aggressive bony lesions. Mild mucosal inflammatory changes in th e paranasal sinuses. Mild chronic ischemic small vessel white matter cabrera ges. Partial opacification of the inferior left mastoid air cells. IMPRESSION: No acute intracranial abnormalities. [id number] Procedure Note Hm Interface, Radiology Results Incoming - 09/21/2019 9:45 AM CDT EXAMINATION: CT HEAD WO CONTRAST CLINICAL HISTORY: s p fall COMPARISON: November 21, 2018 TECHNIQUE: CT imaging was performed with iterative reconstruction technique and/or automated exposure control to reduce radiation dose. Findings: No intracranial hemorrhage, acute transcortical ischemia, extra-axial fluid collections or parenchymal mass lesions. No skull fractures or aggressive bony lesions. Mild mucosal inflammatory changes in the paranasal sinuses. Mild chronic ischemic small vessel white matter changes. Partial opacification of the inferior left mastoid air cells. IMPRESSION: No acute intracranial abnormalities. [id number] Performing Organization Address [facility] one Number [facility] [address] [place] [address] * ECG 12 lead (09/21/2019 5:54 AM CDT) Only the most recent of 7 results within the time period is included. Ventricular 74 [facility] rate Atrial rate 74 [facility] OK interval 140 [facility] QRSD interval 88 [facility] QT interval 394 [facility] QTC interval 437 [facility] P axis 1 76 [facility] QRS axis 1 74 [facility] T wave axis 84 [facility] EKG impression Sinus rhythm with premature [facility] ventricular complexes-Septal infarct , age undetermined-Abnormal ECG-In automated comparison with ECG of 25-MAY-2019 12:57,-premature atrial complexes are now present-Vent. rate has increased BY 24 BPM-Septal infarct is now present- Specimen Narrative Performed At This result has an attachment that is n ot available. Performing Organization Address [facility] one Number [facility] MUSE [address] [place] [address] * CBC with platelet and differential (09/21/2019 5:19 AM CDT) Only the most recent of 13 results within the time period is included. WBC 11.0 4.2 - 11.0 k/uL [facility] RBC 3.51 (L) 4.04 - 5.86 m/uL [facility] HGB 11.6 (L) 13.0 - 17.3 g/dL [facility] [place] HCT 32.6 (L) 34.0 - 45.0 % [facility] MCV 92.9 80.0 - 98.0 fL [facility] MCH 33.0 27.0 - 34.0 pg [facility] MCHC 35.6 31.5 - 36.5 g/dL [facility] RDW - SD 38.6 37.0 - 51.0 fL [facility] MPV 10.2 7.4 - 10.4 fL [facility] Platelet count 160 150 - 400 k/uL [facility] Nucleated RBC 0.00 /100 WBC [facility] Neutrophils 75.3 (H) 36.0 - 66.0 % [facility] Lymphocytes 12.8 (L) 24.0 - 44.0 % [facility] Monocytes 10.5 (H) 0.0 - 6.0 % [facility] Eosinophils 0.5 0.0 - 6.0 % [facility] Basophils 0.4 0.0 - 1.2 % [facility] Immature 0.5 0.0 - 1.0 % [place] granulocytes [facility] Specimen Blood Performing Organization Address City/[facility] Ph one Number [place] [facility] [address] [place] [address] PATHOLOGY AND GENOMIC MEDICINE [address] * Thyroid stimulating hormone (09/21/2019 5:19 AM CDT) Only the most recent of 2 results within the time period is included. TSH 2.54 0.27 - 4.20 uIU/mL [facility] Specimen Blood Performing Organization Address City/State/Zipcode Ph one Number [place] [facility] OF [address] [place], [place] [id number] PATHOLOGY AND GENOMIC MEDICINE [address] [place] [address] HOSPITAL * Hemoglobin A1c (09/21/2019 5:19 AM CDT) Only the most recent of 4 results within the time period is included. Hemoglobin A1C 5.5 4.0 - 5.6 % [place] Comment: [place] HbA1c cutoffs for diagnosing [place] diabetes: HOSPITAL 4.0% - 5.6% = normal 5.7% - 6.4% = increased risk for diabetes (prediabetes)9 >=6.5% = diabetes9 Goals for glycemic control (ADA 2016) < 7.0% Target for non adults with diabetes. More or less stringent targets may be appropriate for individual patients. <7.5% Target for Children and adolescents with type 1 diabetes. Specimen Blood Performing Organization Address City/State/[facility] Ph one Number [place] [facility] [address] [place] [address] PATHOLOGY AND GENOMIC MEDICINE [place] PENTECOSTAL [place] [address] * Us duplex venous lower extremity (09/21/2019 12:45 AM CDT) Specimen Narrative Performed At EXAMINATION: US DUPLEX VENOUS LOWER EXTREMITY LEFT [facility] CLINICAL HISTORY: Swelling LLE COMPARISON: None. TECHNIQUE: Grayscale, color Doppler, and spectral waveform analysis of the left lower extremity deep venous system was performed. The common femoral, superficial femoral, proximal deep femo ral, greater saphenous, and popliteal veins were evaluated. The calf veins were also evaluated. FINDINGS: The left common femoral, superficial fe moral, and popliteal veins are compressible. They demonstrate normal v enous waveforms and response to augmentation. Calf veins could not be v isualized due to overlying bandages. There is no evidence of a popliteal or Riddle's cyst. No evidence for thrombus in the right c ommon femoral vein. IMPRESSION: Normal left lower extremity venous Dopp ler examination. There is no evidence of deep venous thrombosis. Moderate subcutaneous edema of the left lower extremity. [facility]-[id number] Procedure Note Interface, Radiology Results Incoming - 09/21/2019 12:52 AM CDT EXAMINATION: US DUPLEX VENOUS LOWER EXTREMITY LEFT CLINICAL HISTORY: Swelling LLE COMPARISON: None. TECHNIQUE: Grayscale, color Doppler, and spectral waveform analysis of the left lower extremity deep venous system was performed. The common femoral, superficial femoral, proximal deep femoral, greater saphenous, and popliteal veins were evaluated. The calf veins were also evaluated. FINDINGS: The left common femoral, superficial femoral, and popliteal veins are compressible. They demonstrate normal venous waveforms and response to augmentation. Calf veins could not be visualized due to overlying bandages. There is no evidence of a popliteal or Riddle's cyst. No evidence for thrombus in the right common femoral vein. IMPRESSION: Normal left lower extremity venous Doppler examination. There is no evidence of deep venous thrombosis. Moderate subcutaneous edema of the left lower extremity. [facility]-[id number] Performing Organization Address City/[facility] Ph one Number [facility] [address] [place] [address] * B natriuretic peptide (09/20/2019 6:46 PM CDT) Only the most recent of 4 results within the time period is included. Pathologist [facility] BNP 37 0 - 100 pg/mL [facility] Specimen Blood Performing Organization Address City/[facility] Ph one Number [place] [facility] [address] [place] [address] PATHOLOGY AND [facility] MEDICINE [address] * Lipase level (09/20/2019 6:46 PM CDT) Only the most recent of 3 results within the time period is included. [facility] Lipase 20 13 - 60 U/L [facility] Specimen Blood Performing Organization Address [facility] Ph one Number [place] [facility] [address] [place] [address] PATHOLOGY AND GENOMIC MEDICINE [address] * Hepatic function panel (09/20/2019 6:46 PM CDT) Only the most recent of 2 results within the time period is included. Pathologist [facility] Albumin 4.0 3.5 - 5.0 g/dL [facility] Total bilirubin 0.7 0.2 - 1.2 mg/dL [facility] Bilirubin 0.2 0.0 - 0.4 mg/dL [facility] Alkaline 45 0 - 129 U/L [place] phosphatase [facility] Protein 7.1 6.3 - 8.3 g/dL [facility] ALT 16 5 - 50 U/L [facility] AST 28 10 - 50 U/L [facility] Specimen Blood Performing Organization Address City/[facility] Ph one [facility] [place] [facility] [address] [place] [id number] PATHOLOGY AND [facility]OMIC [facility] [address] [facility] [address] * XR Knee 4+ Vw Left (09/20/2019 4:58 PM CDT) Specimen Narrative Performed At EXAMINATION: XR KNEE 4 VW LEFT [facility] CLINICAL HISTORY: fall COMPARISON: None. IMPRESSION: There is no evidence of left knee fract ure, dislocation, or joint effusion. Bone mineralization is normal. Vascular calc ification present. [facility]-SPHY[facility] Procedure Note Hm Interface, Radiology Results Incoming - 09/20/2019 5:11 PM CDT EXAMINATION: XR KNEE 4 VW LEFT CLINICAL HISTORY: fall COMPARISON: None. IMPRESSION: There is no evidence of left knee fracture, dislocation, or joint effusion. Bone mineralization is normal. Vascular calcification present. [facility] Performing Organization Address [facility] one Number [facility] [address] [place] [address] * XR Tibia Fibula 2 Vw Left (09/20/2019 4:57 PM CDT) Specimen Narrative Performed At EXAMINATION: XR TIBIA FIBULA 2 VW LEFT [facility] CLINICAL HISTORY: fall COMPARISON: None. IMPRESSION: No acute fracture, dislocation or focal osseous abnormality noted. Bone mineralization is within normal limits for age. No radiopaque foreign body noted. [facility]-SPHYAAL Procedure Note Hm Interface, Radiology Results Incoming - 09/20/2019 5:12 PM CDT EXAMINATION: XR TIBIA FIBULA 2 VW LEFT CLINICAL HISTORY: fall COMPARISON: None. IMPRESSION: No acute fracture, dislocation or focal osseous abnormality noted. Bone mineralization is within normal limits for age. No radiopaque foreign body noted. [facility] Performing Organization Address City/[facility] Ph one Number [facility] [address] [place] [address] * Manual differential (05/26/2019 4:47 AM SOURCING ASSOCIATE) Only the most recent of 2 results within the time period is included. Manual PERFORMED [place] differential [facility] Neutrophils 92.0 (H)Comment: Corrected 36.0 - 66.0 % SHERI STON result; previously reported as [facility] 86.5 on 05/26/2019 at 06:[address] [facility] Lymphocytes 6.0 (L)Comment: Corrected 24.0 - 44.0 % HOUS TON result; previously reported as [facility] 11.8 on 05/26/2019 at 06:[address] [facility] Monocytes 2.0Comment: Corrected result; 0.0 - 6.0 % [place] previously reported as 1.0 on [facility] 05/26/2019 at 06:02 by [facility] Eosinophils 0.0Comment: Corrected result; 0.0 - 6.0 % [place] previously reported as 0.2 on [facility] 05/26/2019 at 06:02 by [facility] Basophils 0.0 0.0 - 1.2 % [facility] Metamyelocytes 0 0 - 1 % [facility] Promyelocytes 0 0 - 1 % [facility] Platelet slide Aimee adequate [place] review [facility] Giant platelets Occasional [facility] Specimen Performing Organization Address City/State[facility] Ph one Number [place] [facility] [address] [place] [address] PATHOLOGY AND GENOMIC MEDIC[facility] [address] [place] [address] HOSPITAL * Comprehensive metabolic panel (05/26/2019 4:47 AM SOURCING ASSOCIATE) Only the most recent of 7 results within the time period is included. Sodium 140 135 - 150 mEq/L [facility] Potassium 5.0 3.5 - 5.0 mEq/L [facility] Chloride 100 98 - 112 mEq/L [facility] CO2 25 24 - 31 mmol/L [facility] Anion gap 15@ANIO 7 - 15 mEq/L [facility] BUN 29 (H) 7 - 18 mg/dL [facility] Creatinine 1.90 (H) 0.70 - 1.20 mg/dL [facility] Glucose 133 (H) 65 - 100 mg/dL [facility] Calcium 8.4 (L) 8.8 - 10.2 mg/dL [facility] Protein 6.4 6.3 - 8.3 g/dL [facility] Albumin 3.5 3.5 - 5.0 g/dL [facility] A/G ratio 1.2 0.7 - 3.8 [facility] Alkaline 46 0 - 129 U/L [place] phosphatase [facility] AST 15 10 - 50 U/L [facility] ALT 10 5 - 50 U/L [facility] Total bilirubin <0.3 0.2 - 1.2 mg/dL [facility] Specimen Plasma specimen Performing Organization Address City/State/Zipcode Ph one Number [place] [facility] [place] [address] PATHOLOGY AND GENOMIC MEDICINE [address] * Respiratory pathogen panel (05/26/2019 4:00 AM SOURCING ASSOCIATE) Only the most recent of 3 results within the time period is included. Pathologist [facility] Respiratory Negative for all pathogens [place] pathogen panel tested: [facility] Negative for Adenovirus [facility] Negative for Coronavirus HKU1 Negative for Coronavirus NL63 Negative for Coronavirus 229E Negative for Coronavirus OC43 Negative for Human Metapneumovirus Negative for Rhinovirus/Enterovirus Negative for Influenza A Negative for Influenza A/H1 Negative for Influenza A/H3 Negative for Influenza A/H1-2009 Negative for Influenza B Negative for Parainfluenza Virus 1 Negative for Parainfluenza Virus 2 Negative for Parainfluenza Virus 3 Negative for Parainfluenza Virus 4 Negative for Respiratory Syncytial Virus Negative for Bordetella pertussis Negative for Chlamydophila pneumoniae Negative for Mycoplasma pneumoniae This real-time PCR assay detects the presence of nucleic acids (RNA or DNA) for the respiratory pathogens listed. A result of "Not-detected" does not exclude the possibility of the presence of one or more pathogens at concentrations less than the detectable limits of the assay. Comment: Specimen Information Specimen Source: Nares Specimen Site: Aspirate Specimen Nares - Aspirate Performing Organization Address City/[facility] Ph one Number [facility] DEPARTMENT OF [address] [place] [address] PATHOLOGY AND GENOMIC MEDICINE [place] [facility] [address] [place] [address] HOSPITAL * Influenza antigen (05/26/2019 4:00 AM SOURCING ASSOCIATE) Pathologist [facility] Influenza Negative for Influenza A/B [place] antigen antigen. [facility] Comment: MORIARTY Specimen Information HOSPITAL Specimen Source: Nares Specimen Site: Aspirate Specimen Nares - Aspirate Performing Organization Address City/State/[facility] Ph one Number [place] [facility] [address] [place] [address] PATHOLOGY [place] [address] HOSPITAL * Lactic acid level, SEPSIS - Now and repeat 2x every 3 hours (05/25/2019 8:59 PM SOURCING ASSOCIATE) Only the most recent of 3 results within the time period is included. Pathologist [facility] Lactic acid 2.1 0.5 - 2.2 mmol/L [place] Comment: [facility] Results called to and read MORIARTY back by ROBERTO CARLOS RUELAS NP at HOSPITAL 21:15 05/25/2019 by DXP. Specimen Blood Performing Organization Address [facility] one Number [place] [facility] [address] [facility] [place] [address] PATHOLOGY AND GENOMIC MEDICINE [address] * Sepsis Clinical Assessment (05/25/2019 4:40 PM SOURCING ASSOCIATE) Only the most recent of 2 results within the time period is included. Narrative Performed At Chanelle Hawley NP-C 05/25/2019 5:51 PM B lab reporting LA 2.7 Source: PNA? IVF Bolus: NS 1905ml IVF Maintenance: NA Blood Cultures: X2, results pending UA/UCX: pending Sputum CX: NA Lactic Acid: 2.7, trend Anti-infective first dose: Levaquin Sepsis Clinical Assessment Performed by: Chanelle Hawley NP-C Authorized by: Chanelle Hawley NP-C Sepsis Clinical Assessment General Assessment Information Current sepsis score: 1 If score does not worsen, snooze alerts until: 05/26/2019 04:40 SOURCING ASSOCIATE Organ Dysfunction Lactate > 2.0 mmol/L due to acute condi tion Creatinine > 2.0 mg/dL due to acute con dition Sepsis Assessment Clinical suspicion of infection? Yes Time of suspicion of infection: 4:40 PM Clinical suspicion of sepsis?: No Sepsis protocol started? No Suspected Type/Source of Infection Suspected Type of Infection: Bacterial Suspected Source of Infection: Pneumoni a Other Acute Diagnoses Other Acute Diagnosis: Pneumonia Focus Exam Sepsis focus exam performed at 05/25/2019 4:40 PM Cardiopulmonary Exam Heart: Regular rate & rhythm Left Lung: Clear Right Lung: Clear Capillary Refill Capillary refill rate: Brisk, < 3 s Peripheral Pulses Left dorsalis pedis: Normal Right dorsalis pedis: Normal Left posterial tibial: Normal Right posterial tibial: Normal Left radial: Normal Right radial: Normal Skin Exam Skin exam: Skin color normal Sepsis Related Vitals Heart rate: 53 Temperature: 96.9 F Respiratory rate: 13 Blood pressure: 140/62 Altered mental status: WBC (k/uL) Date Value 05/25/2019 9.0 04/25/2019 4.6 Weight-Based Fluid Bolus Calculation The recommended weight-based bolus volu me: 1,905 mL (dosing weight) Please refer to the MAR for actual med/ fluid administrations. * Blood culture, aerobic & anaerobic (05/25/2019 3:25 PM SOURCING ASSOCIATE) Only the most recent of 4 results within the time period is included. Blood culture No growth after 5 days of [place] isolate incubation. [facility] Comment: HOSPITAL Specimen Information Specimen Source: Blood Specimen Site: Antecubital Left Specimen Blood Performing Organization Address City/State/Zipcode Ph one Number [facility] DEPARTMENT OF [address] [place] [address] PATHOLOGY AND GENOMIC MEDICINE [place] [facility] [address] [place] [address] HOSPITAL * XR Chest 1 Vw Portable (05/25/2019 2:56 PM SOURCING ASSOCIATE) Only the most recent of 3 results within the time period is included. Specimen Narrative Performed At EXAMINATION: XR CHEST 1 VW PORTABLE [facility] CLINICAL HISTORY: rhonchi COMPARISON: 04/05/2019 IMPRESSION: Heart size and pulmonary vasculature ar e normal. There is aortic arch calcification and aneurysmal dilation, similar to prior. Lungs are clear. No effusion or pneumothorax noted. Visuali zed osseous structures are intact. Eggshell calcification noted in the left upper abdomen related to the s pleen. [facility]-[id number] Procedure Note Hm Interface, Radiology Results Incoming - 05/25/2019 3:04 PM SOURCING ASSOCIATE EXAMINATION: XR CHEST 1 VW PORTABLE CLINICAL HISTORY: rhonchi COMPARISON: 04/05/2019 IMPRESSION: Heart size and pulmonary vasculature are normal. There is aortic arch calcification and aneurysmal dilation, similar to prior. Lungs are clear. No effusion or pneumothorax noted. Visualized osseous structures are intact. Eggshell calcification noted in the left upper abdomen related to the spleen. [id number] Performing Organization Address City/State/Zipcode Ph one Number [facility] [address] [place] [address] * ECG ED Preliminary Interpretation - Not an Order (05/25/2019 2:50 PM SOURCING ASSOCIATE) Only the most recent of 4 results within the time period is included. Narrative Performed At Hubert Babin MD 05/26 12:37 AM ECG ED Preliminary Interpretation - Not an Order Performed by: Hubert Babin MD Authorized by: Hubert Babin MD ECG reviewed by ED Physician in the abs ence of a bridal gown fitter: yes Interpretation: Interpretation: non-specific Rate: ECG rate: 50 ECG rate assessment: normal Rhythm: Rhythm: sinus rhythm QRS: QRS axis: Normal QRS intervals: Normal * CT Abdomen Pelvis W Contrast (04/25/2019 10:42 AM SOURCING ASSOCIATE) Specimen Narrative Performed At EXAMINATION: CT ABDOMEN PELVIS W CONTRAST [facility] CLINICAL HISTORY: epigastric pain ten derness diarrhea TECHNIQUE: Multiple axial images of the abdomen and pelvis were obtained following intravenous administration of iodinated contrast. CT imaging was performed with iterative reconstruction technique and/or automated exposure control to reduce radiation dose. COMPARISON: April 06, 2019 FINDINGS: LOWER THORAX: Atelectatic changes of lung bases. Hear t is normal in size. ABDOMEN: Liver: The liver is normal. No focal ma ss. Gallbladder: Gallstones present. No wal l thickening. Spleen: 2.8 cm peripherally calcified h ypodense lesion in the anterior spleen, unchanged. Embolization coils are prese nt. Splenic vein at the pancreatic tail is not clearly seen. Pancreas: Unchanged 3.2 x2.1 x 1.4 cm l ow-density lesion in the pancreatic tail. Adrenal Glands: The adrenal glands are unremarkable. Kidneys: The kidneys are unremarkable. No mass, hydronephrosis or calculi. Abdominal Aorta: Calcified and noncalci fied atherosclerotic plaque of the abdominal aorta. The distal abdominal a royer and common iliac arteries are occluded. An aortobiiliac bypass graft is patent. The distal external iliac arteries are patent. Multifocal plaque within the external i liac (moderately stenosing on the left and mildly stenosing the right), common femoral and internal iliac arteries. Mildly stenosing ostial calcifications of the celiac axis, SMA and right renal artery. Nodes: No enlarged retroperitoneal or m esenteric lymphadenopathy. Bowel: No bowel obstruction. Extensive colonic diverticulosis without evidence of acute diverticulitis. Appendix measu res 6 mm with faint mucosal enhancement. No significant periappendiceal fat stra nding. Other: Stable appearance of 4 x 2.6 cm peripherally calcified hypodense lesion along the posterior left retroperitonea l musculature, unchanged. PELVIS: Pelvis: No mass, fluid collection or si gnificant adenopathy. Dystrophic calcifications are seen within the pros carey. Bones and soft tissues: Degenerative ch anges of the osseous structures. No suspicious lesions. IMPRESSION: 1.Appendix is normal in size, however d emonstrates very mild mucosal enhancement. No significant periappendi ceal stranding to suggest acute appendicitis this time and findings may be reactive. 2.Extensive atherosclerosis. Patent aor toiliac bypass graft. 3.Descending and sigmoid colonic divert iculosis without evidence of acute diverticulitis. 4.Cystic lesions in the pancreas, splee n and retroperitoneum are unchanged and may be sequela of prior trauma. Nonemer gent MRI follow-up is recommended for further evaluation 5.Additional findings as above. [id number] Procedure Note Hm Interface, Radiology Results Incoming - 04/25/2019 11:10 AM SOURCING ASSOCIATE EXAMINATION: CT ABDOMEN PELVIS W CONTRAST CLINICAL HISTORY: epigastric pain tenderness diarrhea TECHNIQUE: Multiple axial images of the abdomen and pelvis were obtained following intravenous administration of iodinated contrast. CT imaging was performed with iterative reconstruction technique and/or automated exposure control to reduce radiation dose. COMPARISON: April 06, 2019 FINDINGS: LOWER THORAX: Atelectatic changes of lung bases. Heart is normal in size. ABDOMEN: Liver: The liver is normal. No focal mass. Gallbladder: Gallstones present. No wall thickening. Spleen: 2.8 cm peripherally calcified hypodense lesion in the anterior spleen, unchanged. Embolization coils are present. Splenic vein at the pancreatic tail is not clearly seen. Pancreas: Unchanged 3.2 x2.1 x 1.4 cm low-density lesion in the pancreatic tail. Adrenal Glands: The adrenal glands are unremarkable. Kidneys: The kidneys are unremarkable. No mass, hydronephrosis or calculi. Abdominal Aorta: Calcified and noncalcified atherosclerotic plaque of the abdominal aorta. The distal abdominal aorta and common iliac arteries are occluded. An aortobiiliac bypass graft is patent. The distal external iliac arteries are patent. Multifocal plaque within the external iliac (moderately stenosing on the left and mildly stenosing the right), common femoral and internal iliac arteries. Mildly stenosing ostial calcifications of the celiac axis, SMA and right renal artery. Nodes: No enlarged retroperitoneal or mesenteric lymphadenopathy. Bowel: No bowel obstruction. Extensive colonic diverticulosis without evidence of acute diverticulitis. Appendix measures 6 mm with faint mucosal enhancement. No significant periappendiceal fat stranding. Other: Stable appearance of 4 x 2.6 cm peripherally calcified hypodense lesion along the posterior left retroperitoneal musculature, unchanged. PELVIS: Pelvis: No mass, fluid collection or significant adenopathy. Dystrophic calcifications are seen within the prostate. Bones and soft tissues: Degenerative changes of the osseous structures. No suspicious lesions. IMPRESSION: 1.Appendix is normal in size, however de monstrates very mild mucosal enhancement. No significant periappendiceal stranding to suggest acute appendicitis this time and findings may be reactive. 2.Extensive atherosclerosis. Patent aort oiliac bypass graft. 3.Descending and sigmoid colonic diverti culosis without evidence of acute diverticulitis. 4.Cystic lesions in the pancreas, spleen and retroperitoneum are unchanged and may be sequela of prior trauma. Nonemergent MRI follow-up is recommended for further evaluation 5.Additional findings as above. [id number] Performing Organization Address City/State/Zipcode Ph one Number [facility] [address] [place] [address] * Urine drugs of abuse screen (04/25/2019 10:11 AM SOURCING ASSOCIATE) Only the most recent of 2 results within the time period is included. Amphetamine Negative [place] screen, urine [facility] Barbiturate Negative [place] screen, urine [facility] Benzodiazepine Negative [place] screen, urine [facility] Cocaine screen, Negative [place] urine [facility] Methadone Negative [place] metabolite [facility] (EDDP), urine [facility] Opiates screen, Negative [place] urine [facility] Oxycodone Negative [place] screen, urine [facility] Phencyclidine Negative [place] screen, urine [facility] Cannabinoid Negative [place] screen, urine Comment: [facility] Drug screen minimum MORIARTY concentration of detectability [facility] Amphetamines 1000 ng/mL Barbiturates 200 ng/mL Benzodiazepines 300 ng/mL Cocaine 300 ng/mL Methadone 300 ng/mL Opiates 300 ng/mL Oxycodone 300 ng/mL Phencyclidine 25 ng/mL Cannabinoids 50 ng/mL Tricyclics 1000 ng/mL Results are from screening tests and should only be used for medical evaluation. Drug testing for legal purposes requires definitive (or confirmatory) testing methods, which are available upon request. Contact the laboratory if definitive testing is required. Specimen Urine - Urine, clean catch Performing Organization Address [facility] Ph one Number [place] [facility] [address] [place] [id number] PATHOLOGY AND [facility]IC [facility] [address] * XR Hip 2-3 View Left (04/07/2019 3:00 PM SOURCING ASSOCIATE) Specimen Narrative Performed At EXAMINATION: XR HIP 2-3 VIEWS LEFT [facility] CLINICAL HISTORY: hip pain COMPARISON: None. FINDINGS: No bone or joint abnormality is appreci ated. IMPRESSION: If pain persists, further evaluation wi MR scanning could be of benefit. [id number] Procedure Note Hm Interface, Radiology Results Incoming - 04/07/2019 3:20 PM SOURCING ASSOCIATE EXAMINATION: XR HIP 2-3 VIEWS LEFT CLINICAL HISTORY: hip pain COMPARISON: None. FINDINGS: No bone or joint abnormality is appreciated. IMPRESSION: If pain persists, further evaluation with MR scanning could be of benefit. [id number] Performing Organization Address [facility] Ph one Number [facility] [address] [place] [address] * XR Femur 2 Vw Left (04/07/2019 2:59 PM SOURCING ASSOCIATE) Specimen Narrative Performed At EXAMINATION: XR FEMUR 2 VW LEFT [facility] CLINICAL HISTORY: thigh pain COMPARISON: None. FINDINGS: Minimal vascular calcifications are not ed. IMPRESSION: No bone or joint abnormality is appreci ated. [id number] Procedure Note Hm Interface, Radiology Results Incoming - 04/07/2019 3:04 PM SOURCING ASSOCIATE EXAMINATION: XR FEMUR 2 VW LEFT CLINICAL HISTORY: thigh pain COMPARISON: None. FINDINGS: Minimal vascular calcifications are noted. IMPRESSION: No bone or joint abnormality is appreciated. [id number] Performing Organization Address City/State/Zipcode Ph one Number [facility] [address] [place] [address] * CTA Abdomen Pelvis W And Or Wo Contrast (04/06/2019 9:42 AM SOURCING ASSOCIATE) Specimen Narrative Performed At EXAMINATION: CT ANGIOGRAM ABDOMEN PELVIS W AND OR W O CONTRAST [facility] CLINICAL HISTORY: Evaluate abdominal aorta COMPARISON: None. TECHNIQUE: Axial images were obtained t hrough the abdomen and pelvis after the administration of intravenous contrast per CTA protocol. Coronal, sagittal, and 3-D maximum intensity projection images were obtained. Up-to-date CT equipment and radiation dose reduction techniques were utilized . FINDINGS: ABDOMEN/PELVIS: LOWER THORAX: The visualized lung bas es are clear. The heart is not enlarged. HEPATOBILIARY: No focal hepatic lesio ns. No biliary ductal dilation. Gallstones are in the gallbladder. No p ericholecystic inflammation. SPLEEN: No splenomegaly. Embolization coils are in the spleen. A peripherally calcified hypoattenuating lesion is in the cranial aspect of the spleen which measures approximately 2.6 cm and may r eflect an old hematoma. PANCREAS: An approximately 3 cm perip herally calcified low-attenuation lesion is in the pancreatic tail. The pancreat ic duct is not dilated. ADRENALS: No adrenal nodules. KIDNEYS: No hydronephrosis, stones or solid masses. PERITONEUM/RETROPERITONEUM: No free a ir or fluid. No lymphadenopathy. An approximately 4.1 cm peripherally calci fied lesion is in the posterior retroperitoneum abutting the musculatur e best seen on series 301 image 67. GI TRACT: No bowel wall thickening or evidence of obstruction. There is sigmoid diverticulosis without divertic ulitis. PELVIC ORGANS/BLADDER: Dystrophic martina cific patient's are in the prostate. The urinary bladder is grossly unremarkable . BONES AND SOFT TISSUES: No acute osse ous abnormality or destructive osseous lesion. There is mild multilevel degene rative disc disease of the lumbosacral spine. CTA: AORTA: Calcified and noncalcified ath erosclerotic plaque is in the abdominal aorta. The distal abdominal aorta and i liac arteries are occluded. An aortobiiliac bypass graft is patent. ILIAC ARTERIES: The [place] bilateral co mmon iliac arteries and proximal bilateral external iliac arteries are o ccluded. The distal external iliac arteries are patent. The internal iliac arteries fill in a retrograde fashion. MESENTERIC ARTERIES: The celiac artery and superior mesenteric artery are patent. The inferior mesenteric artery is occluded at its origin but fills in a retrograde fashion. RENAL ARTERIES: Single renal arteries are identified bilaterally. There is mild ostial stenosis of the right renal artery. IMPRESSION: 1. Prominent calcified and noncalcified atherosclerotic plaque of the abdominal aorta which is not aneurysmal. The dist al abdominal aorta, bilateral common iliac arteries, and proximal bilateral external iliac arteries are occluded. An aortobiiliac bypass graft is patent. 2. Hypoattenuating lesions in the splee n, pancreatic tail, and left retroperitoneum which were partially vi sualized on previous imaging may reflect sequela from prior surgery or trauma. C ystic pancreatic neoplasm can not be excluded and further evaluation with a CT or MRI of the abdo men with pancreatic mass protocol recommended. 3. Mild ostial stenosis of the right re nal artery. 4. Cholelithiasis. [facility]-[id number] Procedure Note Hm Interface, Radiology Results Incoming - 04/06/2019 10:15 AM SOURCING ASSOCIATE EXAMINATION: CT ANGIOGRAM ABDOMEN PELVIS W AND OR WO CONTRAST CLINICAL HISTORY: Evaluate abdominal aorta COMPARISON: None. TECHNIQUE: Axial images were obtained through the abdomen and pelvis after the administration of intravenous contrast per CTA protocol. Coronal, sagittal, and 3-D maximum intensity projection images were obtained. Up-to-date CT equipment and radiation dose reduction techniques were utilized. FINDINGS: ABDOMEN/PELVIS: LOWER THORAX: The visualized lung bases are clear. The heart is not enlarged. HEPATOBILIARY: No focal hepatic lesions. No biliary ductal dilation. Gallstones are in the gallbladder. No pericholecystic inflammation. SPLEEN: No splenomegaly. Embolization coils are in the spleen. A peripherally calcified hypoattenuating lesion is in the cranial aspect of the spleen which measures approximately 2.6 cm and may reflect an old hematoma. PANCREAS: An approximately 3 cm peripherally calcified low-attenuation lesion is in the pancreatic tail. The pancreatic duct is not dilated. ADRENALS: No adrenal nodules. KIDNEYS: No hydronephrosis, stones or solid masses. PERITONEUM/RETROPERITONEUM: No free air or fluid. No lymphadenopathy. An approximately 4.1 cm peripherally calcified lesion is in the posterior retroperitoneum abutting the musculature best seen on series 301 image 67. GI TRACT: No bowel wall thickening or evidence of obstruction. There is sigmoid diverticulosis without diverticulitis. PELVIC ORGANS/BLADDER: Dystrophic calcific patient's are in the prostate. The urinary bladder is grossly unremarkable. BONES AND SOFT TISSUES: No acute osseous abnormality or destructive osseous lesion. There is mild multilevel degenerative disc disease of the lumbosacral spine. CTA: AORTA: Calcified and noncalcified atherosclerotic plaque is in the abdominal aorta. The distal abdominal aorta and iliac arteries are occluded. An aortobiiliac bypass graft is patent. ILIAC ARTERIES: The [place] bilateral common iliac arteries and proximal bilateral external iliac arteries are occluded. The distal external iliac arteries are patent. The internal iliac arteries fill in a retrograde fashion. MESENTERIC ARTERIES: The celiac artery and superior mesenteric artery are patent. The inferior mesenteric artery is occluded at its origin but fills in a retrograde fashion. RENAL ARTERIES: Single renal arteries are identified bilaterally. There is mild ostial stenosis of the right renal artery. IMPRESSION: 1. Prominent calcified and noncalcified atherosclerotic plaque of the abdominal aorta which is not aneurysmal. The distal abdominal aorta, bilateral common iliac arteries, and proximal bilateral external iliac arteries are occluded. An aortobiiliac bypass graft is patent. 2. Hypoattenuating lesions in the spleen , pancreatic tail, and left retroperitoneum which were partially visualized on previous imaging may reflect sequela from prior surgery or trauma. Cystic pancreatic neoplasm can not be excluded and further evaluation with a CT or MRI of the abdomen with pancreatic mass protocol recommended. 3. Mild ostial stenosis of the right eve al artery. 4. Cholelithiasis. [facility]-[id number] Performing Organization Address City/State/Zipcode Ph one Number [facility] [address] [place] [address] * Lipid panel (04/05/2019 12:01 PM SOURCING ASSOCIATE) Only the most recent of 2 results within the time period is included. Cholesterol 126 0 - 199 mg/dL [facility] Triglycerides 48 0 - 149 mg/dL [facility] HDL cholesterol 72 40 - 9,999 mg/dL [facility] LDL cholesterol 55Comment: Result obtained by 0 - 99 mg/dL [place] direct LDL measurement [facility] Lipid panel See below [place] interpretation Comment: [facility] Total Cholesterol (mg/dL) [facility] Cholesterol [facility] (mg/dL) <200 Desirable <100 Optimal 200-239 Borderline-high 100-129 Near or above optimal >=240 High 130-159 Borderline-high 160-189 High >=190 Very high HDL Cholesterol (mg/dL) Triglycerides (mg/dL) <40 Low <150 Normal >=60 High 150-199 Borderline-high 200-499 High >=500 Very high Risk Catergories that modify LDL goals. Risk Catergories LDL goal (mg/dL) CHD and CHD risk equivalent <100 (10-year risk >20%) Multiple (2+) risk factors <130 (10-year risk =<20%) 0-1 risk factors <160 (<10-year risk) Defining levels of lipids in metabolic syndrome Triglycerides >=150 mg/dL HDL Cholesterol Men <40 mg/dL Women <50 mg/dL Non-HDL cholesterol is a second target for therapy in persons with high triglycerides (>=200 mg/dL) Specimen Plasma specimen Performing Organization Address City/State/Zipcode Ph one Number [place] [address] [place] [id number] [facility] [address] * CT Chest W Contrast (04/05/2019 9:40 AM SOURCING ASSOCIATE) Specimen Narrative Performed At EXAMINATION: HM [facility] CT CHEST W CONTRAST CLINICAL HISTORY: hyponatremia eval for lung CA TECHNIQUE: Multiple axial images of the chest were obtained following intravenous administration of iodinated contrast. H igh-resolution, sagittal, coronal computerized reformatted images were al so obtained.CT imaging was performed with iterative reconstruction technique and/or automated exposure con trol to reduce radiation dose. COMPARISON: 11/22/2018 FINDINGS: Heart size is normal. Coronary artery c alcification is seen. The aorta again contains an aneurysm at the aortic arch. It is unchanged and measures 5.4 cm in its greatest dimensi on. Focal unchanged saccular aneurysm versu s ulceration biapical pleural/peripheral scarring is seen.seen in the inferior d escending intrathoracic aorta with aortic width at this location which is aneurys mal measuring 3.8 cm. The pulmonary artery is within normal l imits. Precarinal lymph node measuring 1.4 x 1 .0 cm is seen.. Bilateral lucencies compatible with harsha trilobular emphysema are seen again.Tiny parenchymal opacity in the right lower lung and unchanged. It is not thought clinically significant. The liver, adrenal glands, and kidney s are within normal limits in their visible portions. There is a gallstone. There is a spleni c cyst with peripheral calcification measuring 2.9 cm. There is a hypodensit y which is probably a cyst sitting superior to the pancreas with periphera l enhancement versus calcification. Suggest pancreas focus CT of the abdomen to better assess. Degenerative changes of the spine are s een.A suspicious osseous lesion is not seen. 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 Inferior descending stable focal saccul ar aortic aneurysm. Enlarged precarinal lymph node. Cholelithiasis. Nonspecific cystic lesion near the pancreas. Recommend pancreas focus protocol to better assess. Emphysema. Procedure Note Hm Interface, Radiology Results Incoming - 04/05/2019 10:16 AM SOURCING ASSOCIATE EXAMINATION: CT CHEST W CONTRAST CLINICAL HISTORY: hyponatremia eval for lung CA TECHNIQUE: Multiple axial images of the chest were obtained following intravenous administration of iodinated contrast. High-resolution, sagittal, coronal computerized reformatted images were also obtained.CT imaging was performed with iterative reconstruction technique and/or automated exposure control to reduce radiation dose. COMPARISON: 11/22/2018 FINDINGS: Heart size is normal. Coronary artery calcification is seen. The aorta again contains an aneurysm at the aortic arch. It is unchanged and measures 5.4 cm in its greatest dimension. Focal unchanged saccular aneurysm versus ulceration biapical pleural/peripheral scarring is seen.seen in the inferior descending intrathoracic aorta with aortic width at this location which is aneurysmal measuring 3.8 cm. The pulmonary artery is within normal limits. Precarinal lymph node measuring 1.4 x 1.0 cm is seen.. Bilateral lucencies compatible with centrilobular emphysema are seen again.Tiny parenchymal opacity in the right lower lung and unchanged. It is not thought clinically significant. The liver, adrenal glands, and kidneys are within normal limits in their visible portions. There is a gallstone. There is a splenic cyst with peripheral calcification measuring 2.9 cm. There is a hypodensity which is probably a cyst sitting superior to the pancreas with peripheral enhancement versus calcification. Suggest pancreas focus CT of the abdomen to better assess. Degenerative changes of the spine are seen.A suspicious osseous lesion is not seen. 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 Inferior descending stable focal saccular aortic aneurysm. Enlarged precarinal lymph node. Cholelithiasis. Nonspecific cystic lesion near the pancreas. Recommend pancreas focus protocol to better assess. Emphysema. Performing Organization Address City/State/Zipcode Ph one Number [facility] [address] [place] [address] * CRITICAL CARE (04/05/2019 6:11 AM SOURCING ASSOCIATE) Narrative Performed At Hubert Babin MD 8:30 AM Critical Care Performed by: Hubert Babin MD Authorized by: Hubert Babin MD Critical care provider statement: Critical care time (minutes): 35 Critical care time was exclusive of: Separately billable procedures and treating other patients Critical care was necessary to treat or prevent imminent or life-threatening deterioration of the f ollowing conditions: Metabolic crisis Critical care was time spent personal ly by me on the following activities: Development of treatment plan with patient or surrogate, discussions with primary provider, eval uation of patient's response to treatment, examination of patient, obta ining history from patient or surrogate, re-evaluation of patient's c ondition, pulse oximetry, ordering and review of radiographic studies, ord ering and review of laboratory studies, ordering and performing treatm ents and interventions, blood draw for specimens, discussions with consult ants, interpretation of cardiac output measurements and review of old c harts Carlos 'yes' if you are taking over cri tical care for this patient from another provider.: no * Echocardiogram complete w contrast and 3D if needed (03/09/2019 11:52 AM CDT) Ao Root 3.95 cm [facility] Diameter AoV Area, Vmax 3.22 cm2 HM [facility] AoV Area, VTI 3.13 cm2 HM [facility] AoV Mean PG 2.05 mmHg HM [facility] AoV Peak PG 3.69 mmHg HM [facility] AoV Vmax 1.02 m/s HM [facility] AoV VTI 0.24 m HM [facility] BSA Leal 1.90 m2 HM [facility] BSA 1.90 m2 [facility] IVS,d 1.08 cm HM [facility] IVS/LVPW,2D 1.01 HM [facility] Left Atrium 3.09 cm HM [facility] Dimension Anterior LV,d 4.32 cm HM [facility] LV EF,2D 53.98 % [facility] LV,s 3.34 cm HM [facility] LVOT area 3.14 cm2 HM [facility] LVOT Diam,S 2.00 cm HM [facility] LVOT Vmax 0.98 m/s HM [facility] LVOT VTI 0.23 m HM [facility] LVPWD,d 1.07 cm HM [facility] PV Pk Grad 3.88 mmHg HM [facility] PV VMAX 0.98 m/s [facility] MV E A ratio 1.26 HM [facility] AoV area i VTI 1.65 cm2/m2 HM [facility] BSA Steele BMI 22.96 kg/m2 HM [facility] E wave 223.56 msec HM [facility] decelartion time MV Peak A Rolan 0.72 m/s HM [facility] MV valve area p 3.39 cm2 HM [facility] 1/2 method MV Peak E Rolan 0.90 m/s HM [facility] MV stenosis 64.83 ms HM [facility] pressure 1/2 time AV LVOT peak 3.88 mmHg HM [facility] gradient Ascending aorta 3.29 cm HM [facility] Ao Root 3.95 cm HM [facility] Diameter LV SYS VOL 45.30 ml HM [facility] LV MCKEON VOL 84.01 ml HM [facility] LV SI Teich 2D 20.39 ml/m2 [facility] LV SV Teich 2D 38.71 ml HM [facility] LV Vol s Teich 45.30 ml HM [facility] PSAX LVOT CI 2.03 l/min/m2 HM [facility] LVOT CO 3.85 l/min HM [facility] LVOT HR for 53.35 bpm HM [facility] LVOT CO LVOT SI 38.04 ml/m2 HM [facility] BSA Haycock 1.89 m2 HM [facility] AoV Vmn 0.65 HM [facility] IVS s 2D 1.41 HM [facility] LV FS Teich 2D 22.79 [facility] MV AE ratio 0.80 HM [facility] LV FS Cube 2D 22.79 [facility] LVOT Vmn 0.67 [facility] Pt Size 177.80 [facility] Pt Wt 72.57 HM [facility] Aov area Vmn 3.34 cm2 HM [facility] LA A_P score P 0.35 HM [facility] LVOT mean grad 1.93 mmHg HM [facility] MAX Pred HR 147.70 HM [facility] 85 of MPHR 125.55 HM [facility] AoV area I VMN 1.76 cm2/m2 HM [facility] bsa Calc MPHR 147.70 bpm HM [facility] IVS pct thck 30.85 % HM [facility] PLAX LV SI Cube 2D 22.93 ml/m2 HM [facility] LV SV Cube 2D 43.54 ml HM [facility] LV vol d cube 80.65 ml HM [facility] 2D LV vol s cube 37.12 ml HM [facility] 2D LVPW pct thck 43.40 % HM [facility] PLAX LVPW s PLAX 1.53 cm HM [facility] MV Decel slope 4.02 m/s2 HM [facility] Pred Exer Dur 6.82 [facility] R1 Pred METS R1 7.16 HM [facility] Velocity Ratio 0.96 m/s HM [facility] (V1/V2) EF 46.08 % HM [facility] E/A ratio 1.25 HM [facility] Specimen Narrative Performed At HM [facility] Left Ventricular ejection fraction i s 50 - 55%. The mitral valve appears thickened. Performing Organization Address City/[facility] Ph one Number [facility] [address] [place] [address], * Lactic acid level (11/24/2018 11:10 AM CDT) Only the most recent of 6 results within the time period is included. Lactic acid 1.7 0.5 - 2.2 mmol/L [facility] Specimen Blood Performing Organization Address City/[facility] Ph one Number [facility] [address] [place] [address] [facility] [address] [place] [address] [address]OSPITAL * CT Angiogram Pe Chest (11/22/2018 6:46 PM CDT) Specimen Narrative Performed At EXAMINATION: RADIANT CT ANGIOGRAM PE CHEST CLINICAL HISTORY: PE suspected interm ediate prob positive D-dimer TECHNIQUE: CT angiographic images of the chest wer e obtained during intravenous administration of iodinated contrast. C omputerized reformatted images and 3-D MIP images were also obtained and archi ruthann (CT pulmonary embolus protocol). Approximately 60 cc of Visipaque [address] scan performed using radiation d ose reduction techniques. Technical factors are evaluated and adjusted to e nsure appropriate moderation of exposure. Automated dose management technology is applied to adjust the radiation dose to minimize expose while achieving a diagnostic quality image. COMPARISON: 06/02/2018 FINDINGS: The main pulmonary artery, right pulmon efrain artery and left pulmonary artery as well as their visualized segmental and subsegmental branches demonstrate no evidence of pulmonary embolism. The pul monary arteries are normal in caliber. Scattered atherosclerotic calcification s of the ectatic thoracic aorta is seen. Approximately 4.2 cm aortic arch aneury sm is again seen. There is no evidence of aortic dissection. No mediastinum, hilar or axillary patho logic adenopathy is seen. The heart is normal in caliber. No jay cardial effusion is seen. Tiny bilateral pleural effusions with a ssociated compressive atelectasis are seen. There is no evidence of consolida tion. Mild emphysematous changes of the lungs are again noted.. There is no marisa dence of pneumothorax. No pulmonary nodule or mass is present. An approximately 1.5 cm gallstone is ag ain seen now at the gallbladder fundus. Approximately 2.6 cm partial rim calcif ied splenic cyst as prior. The image portion of the abdomen viscera is other wilder unremarkable. IMPRESSION: No CTA evidence of pulmonary embolism. Stable approximately 4.2 cm aortic aneu rysm. No CTA evidence of aortic dissection. Tiny bilateral pleural effusions with a ssociated compressive atelectasis. No CT evidence of acute cardiopulmonary process or pneumonia. [id number] Procedure Note Interface, Radiology Results Incoming - 11/22/2018 7:12 PM CDT EXAMINATION: CT ANGIOGRAM PE CHEST CLINICAL HISTORY: PE suspected intermediate prob positive D-dimer TECHNIQUE: CT angiographic images of the chest were obtained during intravenous administration of iodinated contrast. Computerized reformatted images and 3-D MIP images were also obtained and archived (CT pulmonary embolus protocol). Approximately 60 cc of Visipaque [address] scan performed using radiation dose reduction techniques. Technical factors are evaluated and adjusted to ensure appropriate moderation of exposure. Automated dose management technology is applied to adjust the radiation dose to minimize expose while achieving a diagnostic quality image. COMPARISON: 06/02/2018 FINDINGS: The main pulmonary artery, right pulmonary artery and left pulmonary artery as well as their visualized segmental and subsegmental branches demonstrate no evidence of pulmonary embolism. The pulmonary arteries are normal in caliber. Scattered atherosclerotic calcifications of the ectatic thoracic aorta is seen. Approximately 4.2 cm aortic arch aneurysm is again seen. There is no evidence of aortic dissection. No mediastinum, hilar or axillary pathologic adenopathy is seen. The heart is normal in caliber. No pericardial effusion is seen. Tiny bilateral pleural effusions with associated compressive atelectasis are seen. There is no evidence of consolidation. Mild emphysematous changes of the lungs are again noted.. There is no evidence of pneumothorax. No pulmonary nodule or mass is present. An approximately 1.5 cm gallstone is again seen now at the gallbladder fundus. Approximately 2.6 cm partial rim calcified splenic cyst as prior. The image portion of the abdomen viscera is otherwise unremarkable. IMPRESSION: No CTA evidence of pulmonary embolism. Stable approximately 4.2 cm aortic aneurysm. No CTA evidence of aortic dissection. Tiny bilateral pleural effusions with associated compressive atelectasis. No CT evidence of acute cardiopulmonary process or pneumonia. [id number] Performing Organization Address City/State/Zipcode Ph one Number [facility] [address] [place] [address] * D-dimer (11/22/2018 9:45 AM CDT) D-dimer 0.92 (H) 0.00 - 0.40 ug/mL [place] Comment: FEU [facility] Units are ug/ml Fibrinogen [facility] Equivalent Unit. [facility] When combined with low clinical probability, D-dimer results of less than 0.5 ug/ml FEU have a good negative predictive value in excluding PE or DVT. For D-dimer results greater than 0.5 ug/ml FEU further testing is indicated if PE or DVT is suspected clinically. Elevated D-dimer results have been reported in DVT, PE, and DIC cases and may indicate the presence of a clot. D-dimer results may be elevated due to old age, , inflammatory diseases, trauma, post-operative states, sepsis, and malignancies. Specimen Blood Performing Organization Address City/[facility] Ph one Number [facility] [address] [facility] [place] [address] [facility] [address] * Ammonia level (11/21/2018 10:23 AM CDT) Ammonia 19 16 - 60 umol/L [facility] Specimen Plasma specimen Performing Organization Address City/[facility] Ph one Number [facility] [address] [facility] [place] [address] [facility] [address] [place] [address] * Alcohol level, blood (11/21/2018 7:18 AM CDT) Alcohol None Detected mg/dL [place] Comment: [facility] Normal [facility] None Detected [facility]OSP[facility] Legal Intoxication in [place] 80 mg/dL (0.08%) Toxic Concentration 200 mg/dL (0.2%) Potentially Fatal 350-500 mg/dL (0.35%-0.5%) Alcohol percent None Detected % [facility] Specimen Blood Performing Organization Address [facility] Ph one Number [facility] [address] [place] [address] [facility] [address] [facility] [address] * Salicylate level (11/21/2018 7:18 AM CDT) Salicylate <0.4 (L) 3.0 - 30.0 mg/dL [facility] Comment: [facility] Therapeutic Range: BAYWN 5 - 30 mg/dL [facility]OSPITAL Specimen Blood Performing Organization Address City/[facility] Ph one Number [facility] [address] [facility] [place] [address] [facility] [address] [facility] [address] * Arterial blood gas (2018 4:35 PM CDT) Only the most recent of 2 results within the time period is included. pH, arterial 7.316 (LL) 7.350 - 7.450 units [facility] Comment: [facility] Results called to and read MORIARTY back by _[facility] (name/location) at _ 2018 16:49 (date/time) by _[facility]. pCO2, arterial 58.7 (H) 35.0 - 45.0 mmHg [facility] pO2, arterial 115.0 (H) 80.0 - 90.0 mmHg [facility] [facility] O2 saturation, 98.3 95.0 - 100.0 % [place] arterial [facility] Base excess, 3.8 mEq/L [place] arterial [facility] Bicarbonate 30.0 (H) 21.0 - 28.0 mEq/L [facility] O2 content 17.5 VOL% [facility] FiO2, inspired 30.0 % [place] O2% [facility] Carboxyhemoglob 3.0 (H) 0.0 - 1.4 % [place] in Comment: [place] Reference Ranges: [place] Carboxyhemoglobin [facility] Non smoker: 0.0 - 2.0% Smoker: 2.1 - 5.0% Heavy smoker: 5.1 - 9% Methemoglobin 0.5 0.0 - 1.0 % [facility] Hemoglobin, 13.0 (L) 14.0 - 18.0 g/dL [place] blood gas [facility] pO2, A-a 33.6 mmHg [facility] Specimen Blood Performing Organization Address City/State/[place] Ph one Number [place] [facility] [address] [place] [address] [facility] [address] [place] [address] HOSPITAL after 09/28/2018 Insurance Type Payer Benefit Subscriber ID Effective Phone Address Plan / Dates Group Medicare MEDICARE MEDICARE xxxxxxxxxxx 2011-P [place], [place] A resent [place] P[place] BCBS BCBS OUT xxxxxxxxxxxxxxx [id number] OF STATE resent ([place]) [place] [address] Advance Directives For more information, please contact: [phone] Patient Events Specialist Explanation Type Date Recorded Advance Directives, 01/19/2017 10:57 PM Living Will and Medical Power of Shower Attendant Advance Directives, 04/25/2019 9:41 AM Living Will and Medical Power of Shower Attendant Advance Directives, 04/25/2019 9:41 AM Living Will and Medical Power of Shower Attendant Advance Directives, 08/01/2017 11:01 PM Living Will and Medical Power of Shower Attendant Advance Directives, 10/04/2017 9:22 PM Living Will and Medical Power of Shower Attendant Advance Directives, 10/27/2017 5:42 PM Living Will and Medical Power of Shower Attendant Advance Directives, 10/28/2017 5:49 PM Living Will and Medical Power of Shower Attendant Advance Directives, 06/10/2018 5:52 PM Living Will and Medical Power of Shower Attendant Advance Directives, 2018 3:01 PM Living Will and Medical Power of Shower Attendant Advance Directives, 03/09/2019 2:13 AM Living Will and Medical Power of Shower Attendant Advance Directives, 04/05/2019 8:01 AM Living Will and Medical Power of Shower Attendant Advance Directives, 05/25/2019 5:05 PM Living Will and Medical Power of Shower Attendant Advance Directives, 09/20/2019 2:26 PM Living Will and Medical Power of Shower Attendant Advance Directives, 09/20/2019 2:28 PM Living Will and Medical Power of Shower Attendant Advance Directives, 09/20/2019 2:29 PM Living Will and Medical Power of Shower Attendant Date Inactivated Comments Code Status Date Activated 04/08/2019 7:59 PM Full Code 04/05/2019 10:34 AM Code Status decision reached by: Patient 06/02/2018 9:06 PM Full Code 06/01/2018 6:00 AM Code Status decision reached by: Patient 03/01/2018 8:25 PM Full Code 02/27/2018 11:26 PM Code Status decision reached by: Patient 11/13/2017 8:58 PM Full Code 11/11/2017 6:53 AM Code Status decision reached by: Patient 08/04/2017 11:41 PM Full Code 08/02/2017 6:07 PM Code Status decision reached by: Patient Code Status decision reached by: Patient
[2019-09-29] MEDS ORDERED: CEFEPIME 1GM/NS 0.9% 50 ML 50 ML IV STA (12:14)
[2019-09-29] MEDS ORDERED: MORPHINE SULFATE 2 MG/ML SYR 1ML IV PRN (12:15)
[2019-09-29 12:38] LABS: BASOPHILS % 0.5 % (0.0-1.0); EOSINOPHILS # (AUTO) 0.2 (0.0-0.4); EOSINOPHILS % 2.5 % (0.0-6.0); HEMATOCRIT 32.1 % (38.2-49.6); HEMOGLOBIN 10.5 g/dL (14.0-18.0); LYMPHOCYTES # (AUTO) 1.1 (1.0-3.2); LYMPHOCYTES % 15.1 % (18.0-39.1); MEAN CORPUSCULAR HEMOGLOBIN 31.9 pg (28-32); MEAN CORPUSCULAR HGB CONC 32.7 g/dL (31-35); MEAN CORPUSCULAR VOLUME 97.6 fL (81-99); MONOCYTES # (AUTO) 0.9 (0.2-0.8); MONOCYTES % 12.6 % (4.4-11.3); NEUTROPHILS % 68.9 % (38.7-80.0); PLATELET COUNT 335 x10e3/uL (140-360); RED BLOOD COUNT 3.29 x10e6/uL (4.3-5.7); RED CELL DISTRIBUTION WIDTH 11.9 % (11.7-14.4)
--- OUTSIDE RECORDS SUMMARY | 2019-09-29 12:41 | XMS REPORT | Clinical Summary ---
Author Author [facility] Organization [facility] Address Unknown Phone Unavailable Care Team Providers Care Play Reader Name Role Phone Akira Velasquez MD PCP [phone] Allergies Comments Active Allergy Reactions Severity [...] (HCC) (Primary Dx) 05/25/2019 Emergency General Internal [place] - 05/26/2019 Lane Ramírez MD Epigastric abdominal pain (Primary Dx); Pancreatic cyst; Hyponatremia; Diarrhea, unspecified type 04/25/2019 Emergency Emergency Medicine Wale Morgan DO 04/08/2019 Anticoagulation General Internal [facility] [facility] Visit Hubert Babin MD Roberts, Matthew Thomas, DO COPD exacerbation (HCC) (Primary Dx) 04/05/2019 Hospital General Internal [place] - Encounter 04/08/2019 Makc Ruvalcaba MD Rizvi, Farhan, MD COPD exacerbation (HCC) (Primary Dx) 03/09/2019 Emergency General Internal [place] - 03/10/2019 Jaycob Agarwal MD Rizvi, Farhan, MD Bavare, Arusha Amod, MD Shortness of breath (Primary Dx); Chronic obstructive pulmonary disease with acute exacerbation (HCC) 2018 [facility] General Internal [place] - Encounter 11/24/2018 2018 Travel after [...] 09/21/2019 CONTRAST, W DOPPLER 4:18 PM CDT (86167) SODIUM LEVEL Timed 09/21/2019 4:09 PM CDT [...] CDT MANUAL DIFFERENTIAL Routine 05/26/2019 4:47 AM ORTHOPAEDIC DOCTOR ESTIMATED GFR Routine 05/26/2019 4:47 AM ORTHOPAEDIC DOCTOR CBC WITH PLATELET AND Routine 05/26/2019 DIFFERENTIAL 4:47 AM ORTHOPAEDIC DOCTOR COMPREHENSIVE METABOLIC Routine 05/26/2019 PANEL 4:47 AM ORTHOPAEDIC DOCTOR INFLUENZA ANTIGEN Routine 05/26/2019 4:00 AM ORTHOPAEDIC DOCTOR RESPIRATORY PATHOGEN Routine 05/26/2019 PANEL 4:00 AM ORTHOPAEDIC DOCTOR POC GLUCOSE Routine 05/25/2019 10:05 PM ORTHOPAEDIC DOCTOR HEMOGLOBIN A1C STAT 05/25/2019 9:38 PM ORTHOPAEDIC DOCTOR POC GLUCOSE Routine 05/25/2019 9:32 PM ORTHOPAEDIC DOCTOR LACTIC ACID LEVEL, SEPSIS Timed 05/25/2019 - NOW AND REPEAT 2X EVERY 8:59 PM ORTHOPAEDIC DOCTOR 3 HOURS URINALYSIS SCREEN AND STAT 05/25/2019 MICROSCOPY, WITH REFLEX 7:26 PM ORTHOPAEDIC DOCTOR TO CULTURE URINE CULTURE STAT 05/25/2019 7:26 PM ORTHOPAEDIC DOCTOR LACTIC ACID LEVEL, SEPSIS Timed 05/25/2019 - NOW AND REPEAT 2X EVERY 6:06 PM ORTHOPAEDIC DOCTOR 3 HOURS CONSULT TO SEPSIS Routine 05/25/2019 COPD exacerb ation (HCC) RESPONSE TEAM 4:40 PM ORTHOPAEDIC DOCTOR ESTIMATED GFR Routine 05/25/2019 4:01 PM ORTHOPAEDIC DOCTOR COMPREHENSIVE METABOLIC Routine 05/25/2019 PANEL 4:01 PM ORTHOPAEDIC DOCTOR HC COMPLETE BLD COUNT Routine 05/25/2019 W/AUTO DIFF 4:01 PM ORTHOPAEDIC DOCTOR LACTIC ACID LEVEL, SEPSIS Timed 05/25/2019 - NOW AND REPEAT 2X EVERY 3:25 PM ORTHOPAEDIC DOCTOR 3 HOURS BLOOD CULTURE, AEROBIC & Routine 05/25/2019 ANAEROBIC 3:25 PM ORTHOPAEDIC DOCTOR BLOOD CULTURE, AEROBIC & Routine 05/25/2019 ANAEROBIC 3:21 PM ORTHOPAEDIC DOCTOR XR CHEST 1 VW PORTABLE STAT 05/25/2019 2:56 PM ORTHOPAEDIC DOCTOR ECG ED PRELIMINARY Routine 05/25/2019 INTERPRETATION 2:50 PM ORTHOPAEDIC DOCTOR ECG 12-LEAD STAT 05/25/2019 12:[address] ABDOMEN PELVIS W STAT 04/25/2019 CONTRAST 10:42 AM ORTHOPAEDIC DOCTOR URINE DRUGS OF ABUSE STAT 04/25/2019 SCREEN 10:11 AM ORTHOPAEDIC DOCTOR URINALYSIS SCREEN AND STAT 04/25/2019 MICROSCOPY, WITH REFLEX 10:11 AM ORTHOPAEDIC DOCTOR TO CULTURE URINE CULTURE STAT 04/25/2019 10:11 AM ORTHOPAEDIC DOCTOR TROPONIN Timed 04/25/2019 10:00 AM ORTHOPAEDIC DOCTOR ESTIMATED GFR STAT 04/25/2019 9:30 AM ORTHOPAEDIC DOCTOR LIPASE LEVEL STAT 04/25/2019 9:30 AM ORTHOPAEDIC DOCTOR COMPREHENSIVE METABOLIC STAT 04/25/2019 PANEL 9:30 AM ORTHOPAEDIC DOCTOR HC COMPLETE BLD COUNT STAT 04/25/2019 W/AUTO DIFF 9:30 AM ORTHOPAEDIC DOCTOR POC GLUCOSE Routine 04/08/2019 2:47 PM ORTHOPAEDIC DOCTOR POC GLUCOSE Routine 04/08/2019 11:28 AM ORTHOPAEDIC DOCTOR POC GLUCOSE Routine 04/08/2019 6:29 AM ORTHOPAEDIC DOCTOR ESTIMATED GFR Routine 04/08/2019 4:46 AM ORTHOPAEDIC DOCTOR BASIC METABOLIC PANEL Routine 04/08/2019 4:46 AM ORTHOPAEDIC DOCTOR POC GLUCOSE Routine 04/07/2019 8:19 PM ORTHOPAEDIC DOCTOR POC GLUCOSE Routine 04/07/2019 4:40 PM ORTHOPAEDIC DOCTOR XR HIP 2-3 VIEWS LEFT Routine 04/07/2019 3:00 PM ORTHOPAEDIC DOCTOR XR FEMUR 2 VW LEFT Routine 04/07/2019 2:59 PM ORTHOPAEDIC DOCTOR POC GLUCOSE Routine 04/07/2019 10:48 AM ORTHOPAEDIC DOCTOR ESTIMATED GFR Timed 04/07/2019 8:47 AM ORTHOPAEDIC DOCTOR BASIC METABOLIC PANEL Timed 04/07/2019 8:47 AM ORTHOPAEDIC DOCTOR POC GLUCOSE Routine 04/07/2019 6:30 AM ORTHOPAEDIC DOCTOR POC GLUCOSE Routine 04/06/2019 8:38 PM ORTHOPAEDIC DOCTOR ESTIMATED GFR Timed 04/06/2019 8:36 PM ORTHOPAEDIC DOCTOR BASIC METABOLIC PANEL Timed 04/06/2019 8:36 PM ORTHOPAEDIC DOCTOR POC GLUCOSE Routine 04/06/2019 4:33 PM ORTHOPAEDIC DOCTOR OSMOLALITY, URINE Routine 04/06/2019 11:08 AM ORTHOPAEDIC DOCTOR SODIUM LEVEL, URINE, Routine 04/06/2019 RANDOM 11:08 AM ORTHOPAEDIC DOCTOR POC GLUCOSE Routine 04/06/2019 11:[address] ANGIOGRAM ABDOMEN Routine 04/06/2019 PELVIS W AND OR WO 9:42 AM ORTHOPAEDIC DOCTOR CONTRAST ESTIMATED GFR Routine 04/06/2019 6:59 AM ORTHOPAEDIC DOCTOR PHOSPHORUS LEVEL Routine 04/06/2019 6:59 AM ORTHOPAEDIC DOCTOR MAGNESIUM LEVEL Routine 04/06/2019 6:59 AM ORTHOPAEDIC DOCTOR COMPREHENSIVE METABOLIC Routine 04/06/2019 PANEL 6:59 AM ORTHOPAEDIC DOCTOR CBC WITH PLATELET AND Routine 04/06/2019 DIFFERENTIAL 6:59 AM ORTHOPAEDIC DOCTOR POC GLUCOSE Routine 04/06/2019 6:23 AM ORTHOPAEDIC DOCTOR ESTIMATED GFR Timed 04/06/2019 12:28 AM ORTHOPAEDIC DOCTOR BASIC METABOLIC PANEL Timed 04/06/2019 12:28 AM ORTHOPAEDIC DOCTOR TROPONIN Timed 04/06/2019 12:28 AM ORTHOPAEDIC DOCTOR RESPIRATORY PATHOGEN Routine 04/05/2019 PANEL 10:41 PM ORTHOPAEDIC DOCTOR POC GLUCOSE Routine 04/05/2019 8:26 PM ORTHOPAEDIC DOCTOR THYROID STIMULATING Routine 04/05/2019 HORMONE 7:33 PM ORTHOPAEDIC DOCTOR OSMOLALITY, SERUM Routine 04/05/2019 7:33 PM ORTHOPAEDIC DOCTOR ESTIMATED GFR Timed 04/05/2019 7:33 PM ORTHOPAEDIC DOCTOR BASIC METABOLIC PANEL Timed 04/05/2019 7:33 PM ORTHOPAEDIC DOCTOR TROPONIN Timed 04/05/2019 7:33 PM ORTHOPAEDIC DOCTOR POC GLUCOSE Routine 04/05/2019 5:26 PM ORTHOPAEDIC DOCTOR ECG 12-LEAD Routine 04/05/2019 4:30 PM ORTHOPAEDIC DOCTOR TROPONIN Timed 04/05/2019 2:02 PM ORTHOPAEDIC DOCTOR ESTIMATED GFR Timed 04/05/2019 2:02 PM ORTHOPAEDIC DOCTOR BASIC METABOLIC PANEL Timed 04/05/2019 2:02 PM ORTHOPAEDIC DOCTOR HEMOGLOBIN A1C Routine 04/05/2019 12:01 PM ORTHOPAEDIC DOCTOR LIPID PANEL Routine 04/05/2019 12:01 PM ORTHOPAEDIC DOCTOR OSMOLALITY, SERUM Routine 04/05/2019 12:01 PM ORTHOPAEDIC DOCTOR ESTIMATED GFR Timed 04/05/2019 12:01 PM ORTHOPAEDIC DOCTOR BASIC METABOLIC PANEL Timed 04/05/2019 12:01 PM ORTHOPAEDIC DOCTOR POC GLUCOSE Routine 04/05/2019 11:[address] CHEST W CONTRAST STAT 04/05/2019 9:40 AM ORTHOPAEDIC DOCTOR SODIUM LEVEL, URINE, Routine 04/05/2019 RANDOM 9:33 AM ORTHOPAEDIC DOCTOR OSMOLALITY, URINE Routine 04/05/2019 9:33 AM ORTHOPAEDIC DOCTOR TROPONIN Timed 04/05/2019 8:14 AM ORTHOPAEDIC DOCTOR PHOSPHORUS LEVEL Timed 04/05/2019 8:14 AM ORTHOPAEDIC DOCTOR MAGNESIUM LEVEL Timed 04/05/2019 8:14 AM ORTHOPAEDIC DOCTOR XR CHEST 2 VW STAT 04/05/2019 6:41 AM ORTHOPAEDIC DOCTOR ECG ED PRELIMINARY Routine 04/05/2019 INTERPRETATION 6:11 AM ORTHOPAEDIC DOCTOR NC CRITICAL CARE, E/M Routine 04/05/2019 30-74 MINUTES 6:11 AM ORTHOPAEDIC DOCTOR ESTIMATED GFR STAT 04/05/2019 5:30 AM ORTHOPAEDIC DOCTOR B NATRIURETIC PEPTIDE STAT 04/05/2019 5:30 AM ORTHOPAEDIC DOCTOR TROPONIN STAT 04/05/2019 5:30 AM ORTHOPAEDIC DOCTOR HC COMPLETE BLD COUNT STAT 04/05/2019 W/AUTO DIFF 5:30 AM ORTHOPAEDIC DOCTOR COMPREHENSIVE METABOLIC STAT 04/05/2019 PANEL 5:30 AM ORTHOPAEDIC DOCTOR ECG 12-LEAD Routine 04/05/2019 5:26 AM ORTHOPAEDIC DOCTOR ECG 12-LEAD STAT 04/05/2019 5:26 AM ORTHOPAEDIC DOCTOR POC GLUCOSE Routine 03/10/2019 11:55 AM CDT POC GLUCOSE Routine 03/10/2019 6:14 AM CDT ESTIMATED GFR Routine 03/10/2019 4:33 AM CDT BASIC METABOLIC PANEL Routine 03/10/2019 4:33 AM CDT POC GLUCOSE Routine 03/09/2019 8:58 PM CDT POC GLUCOSE Routine 03/09/2019 3:55 PM CDT RESPIRATORY PATHOGEN Routine 03/09/2019 PANEL 12:31 PM CDT TTE COMPLETE, WO Routine 03/09/2019 CONTRAST, W DOPPLER 11:52 AM CDT (29225) POC GLUCOSE Routine 03/09/2019 10:45 AM CDT [...] glucose 103 (H) 65 - 100 mg/dL [place] Comment: GNOSTICIST Information Technology Coordinator Name: Stacey Patel [place] Device ID: [id number] [facility] Specimen Blood Performing Organization Address City/State/Zipcode Ph one Number [facility] [address] [place] [address] PATHOLOGY AND GENOMIC MEDICINE [place] GNOSTICIST [place] [address] [place] [address] HOSPITAL * Estimated GFR (09/25/2019 4:52 AM CDT) Only the most recent of 27 results within the time period is included. [facility] Estimated GFR 89 mL/min/1.73 m2 [place] Comment: [facility] G1 >=90 Normal or high G2 60-89 [...] published in 2014. Specimen Performing Organization Address City/[facility] [place] [address] PATHOLOGY AND GENOMIC MEDICINE [address] * CBC hemogram (09/25/2019 4:52 AM CDT) Only the most recent of 3 results within the time period is included. [facility] WBC 7.2 4.2 - 11.0 k/uL [facility] RBC 3.12 (L) 4.04 - 5.86 m/uL [facility] HGB 10.2 (L) 13.0 - 17.3 g/dL [facility] HCT 29.7 (L) 34.0 - 45.0 % [facility] MCV 95.2 80.0 - 98.0 fL [facility] MCH 32.7 27.0 - 34.0 pg [facility] MCHC 34.3 31.5 - 36.5 g/dL [facility] RDW - SD 39.3 37.0 - 51.0 fL [facility] MPV 9.9 7.4 - 10.4 fL [facility] Platelet count 166 150 - 400 k/uL [facility] Nucleated RBC 0.00 /100 WBC [facility] Specimen Blood Performing Organization Address City/[facility] Ph one Number [facility] [address] [place] [address] PATHOLOGY AND GENOMIC MEDICINE [address] * Magnesium level (09/25/2019 4:52 AM CDT) Only the most recent of 9 results within the time period is included. Magnesium 1.40 (L) 1.60 - 2.40 mg/dL [facility] Specimen Blood Performing Organization Address City/[facility] Ph one Number [facility] [place] [address] PATHOLOGY AND GENOMIC MEDICINE [address] * Basic metabolic panel (09/25/2019 4:52 AM CDT) Only the most recent of 20 results within the time period is included. Sodium 132 (L) 135 - 150 mEq/L [facility] Potassium 3.9 3.5 - 5.0 mEq/L [facility] Chloride 95 (L) 98 - 112 mEq/L [facility] CO2 26 24 - 31 mmol/L [facility] Anion gap 11@ANIO 7 - 15 mEq/L [facility] BUN 19 (H) 7 - 18 mg/dL [facility] Creatinine 0.80 0.70 - 1.20 mg/dL [facility] Glucose 96 65 - 100 mg/dL [facility] Calcium 8.9 8.8 - 10.2 mg/dL [facility] Specimen Blood Performing Organization Address City/State/[facility] Ph one Number [facility] [place] [address] PATHOLOGY AND GENOMIC MEDICINE [address] * Total iron binding capacity (09/24/2019 11:10 AM CDT) Iron level 25 (L) 59 - 158 ug/dL [facility] Iron binding 247 (L) 271 - 474 ug/dL [facility] % Saturation 10.1 (L) 20.0 - 40.0 % [facility] Specimen Blood Performing Organization Address City/State/[facility] Ph one Number [facility] [address] [place] [address] PATHOLOGY AND GENOMIC MEDICINE [address] * Ferritin level (09/24/2019 11:10 AM CDT) Ferritin level 139 30 - 400 ng/mL [facility] Specimen Serum Performing Organization Address City/State/[facility] Ph one Number [facility] [address] [place] [address] PATHOLOGY AND GENOMIC MEDICINE [address] * Phosphorus level (09/22/2019 5:24 AM CDT) Only the most recent of 6 results within the time period is included. Pathologist [facility] Phosphorus 2.9 2.4 - 4.5 mg/dL [facility] Specimen Blood Performing Organization Address City/State/[facility] Ph one Number [facility] [address] [place] [address] PATHOLOGY AND GENOMIC MEDICINE [address] * Urinalysis screen and microscopy, with reflex to culture (09/22/2019 2:37 AM CDT) Only the most recent of 4 results within the time period is included. Specimen site Clean catch [facility] Color, UA Yellow [facility] Appearance, UA Clear [facility] Specific 1.016 1.001 - 1.035 [place] gravity, UA [facility] pH, UA 6.0 5.0 - 8.5 [facility] Protein, UA Negative Negative [facility] Glucose, UA Negative Negative [facility] Ketones, UA Negative Negative [facility] Bilirubin, UA Negative Negative [facility] Blood, UA Negative Negative [facility] Nitrite, UA Negative Negative [facility] Urobilinogen, 4.0 (A) <2.0 [facility] Leukocyte Negative Negative [place] esterase, UA [facility] WBC, UA <1 0 - 1 /HPF [facility] RBC, UA <1 0 - 5 /HPF [facility] Bacteria, UA None seen None seen [facility] Yeast, UA None seen [facility] Yeast with None seen [place] pseudohyphae, [facility] Specimen Urine Performing Organization Address City/State/[facility] Ph one Number [facility] OF [address] [place] [address] PATHOLOGY AND GENOMIC MEDICINE [address] * Sodium level, urine, random (09/22/2019 2:37 AM CDT) Only the most recent of 3 results within the time period is included. Sodium, urine, 68 mEQ/L [facility] Specimen Urine Performing Organization Address City/[facility] Ph one Number [facility] [address] [place] [address] PATHOLOGY AND GENOMIC MEDICINE [address] * Protein, urine, random (09/22/2019 2:37 AM CDT) Protein, urine 10 mg/dL [facility] Specimen Urine Performing Organization Address City/[facility] Ph one Number [facility] OF [address] [place] [address] PATHOLOGY AND GENOMIC MEDICINE [address] * Osmolality, urine (09/22/2019 2:37 AM CDT) Only the most recent of 3 results within the time period is included. Osmolality, 479 50 - 1,400 mOsm/kg [facility] Specimen Urine Performing Organization Address City/[facility] Ph one Number [facility] DEPARTMENT OF [address] [place] [address] PATHOLOGY AND GENOMIC MEDICINE [facility] [address] [place] [address] HOSPITAL * Creatinine level, urine, random (09/22/2019 2:37 AM CDT) Creatinine, 122 mg/dL [place] urine, random [facility] Specimen Urine Performing Organization Address City/[facility] Ph one Number [facility] [address] [place] [address] PATHOLOGY AND GENOMIC MEDICINE [facility] [address] [place] [address] HOSPITAL * Urine culture (09/22/2019 2:37 AM CDT) Only the most recent of 3 results within the time period is included. Urine culture SEE COMMENTComment: [place] Bacteriuria screen negative. [facility] Specimen Urine Performing Organization Address [facility] Ph one Number [facility] OF [address] [place] [id number] PATHOLOGY AND GENOMIC MEDICINE [facility] [address] [place] [address] HOSPITAL * MRI Brain Wo Contrast (09/21/2019 [...] likely reflecting mild chronic microvascular ischemic changes. [facility]-[id number] Procedure Note Hm Interface, Radiology Results Incoming [...] likely reflecting mild chronic microvascular ischemic changes. [facility]-[id number] Performing Organization Address City/State/Zipcode Ph one Number [facility] [address] [place] [address] * Transthoracic Echocardiogram Complete, (w Contrast, Strain [...] left ventricular diastolic filling. Performing Organization Address City/[facility] Ph one Number [facility] [address] [place] [address], * Sodium level (09/21/2019 4:09 PM CDT) Sodium 127 (L) 135 - 150 mEq/L [facility] Specimen Blood Performing Organization Address City/State/[facility] Ph one Number [facility] OF [address] [place] [address] PATHOLOGY AND GENOMIC MEDICINE [facility] [address] * Troponin (09/21/2019 1:14 PM CDT) Only the most recent of 17 results within the time period is included. Troponin 0.006 0.000 - 0.040 ng/mL [place] Comment: GNOSTICIST In patients suspected of [place] having a myocardial HOSPITAL infarction, along with [...] 0.020 ng/mL Specimen Blood Performing Organization Address City/[facility] Ph one Number [facility] OF [address] [place] [address] PATHOLOGY AND GENOMIC MEDICINE [facility] [address] * Osmolality, serum (09/21/2019 1:14 PM CDT) Only the most recent of 4 results within the time period is included. Pathologist [facility] Osmolality 265 (L) 275 - 295 mOsm/kg [facility] Specimen Blood Performing Organization Address City/[facility] Ph one Number [facility] DEPARTMENT OF [address] [place] [address] PATHOLOGY AND GENOMIC MEDICINE [address] * XR Chest 2 Vw (09/21/2019 [...] spleen noted in the left upper abdomen. [facility]-[id number] Procedure Note Hm Interface, Radiology Results Incoming [...] spleen noted in the left upper abdomen. [facility]-[id number] Performing Organization Address City/[facility] Ph one Number [facility] [address] [place] [address] * Creatine kinase, total (CPK) (09/21/2019 9:28 AM CDT) Creatine kinase 621 (H) 39 - 308 U/L [facility] Specimen Blood Performing Organization Address City/[facility] Ph one Number [facility] OF [address] [place] [address] PATHOLOGY AND GENOMIC MEDICINE [address] * CT Head Wo Contrast (09/21/2019 [...] air cells. IMPRESSION: No acute intracranial abnormalities. [id number] Procedure Note Hm Interface, Radiology Results Incoming [...] air cells. IMPRESSION: No acute intracranial abnormalities. [id number] Performing Organization Address [facility] one Number [facility] [address] [place] [address] * ECG 12 lead (09/21/2019 5:54 AM CDT) Only the most recent of 7 results within the time period is included. Ventricular 74 [facility] MUSE rate Atrial rate 74 [facility] MUSE NC interval 140 [facility] MUSE QRSD interval 88 [...] is n ot available. Performing Organization Address [facility] one Number [facility] MUSE [address] [place] [address] * CBC with platelet and differential (09/21/2019 5:19 AM CDT) Only the most recent of 13 results within the time period is included. WBC 11.0 4.2 - 11.0 k/uL [facility] RBC 3.51 (L) 4.04 - 5.86 m/uL [facility] HGB 11.6 (L) 13.0 - 17.3 g/dL [facility] HCT 32.6 (L) 34.0 - 45.0 % [facility] MCV 92.9 80.0 - 98.0 fL [facility] MCH 33.0 27.0 - 34.0 pg [facility] MCHC 35.6 31.5 - 36.5 g/dL [facility] RDW - SD 38.6 37.0 - 51.0 fL [facility] MPV 10.2 7.4 - 10.4 fL [facility] Platelet count 160 150 - 400 k/uL [facility] Nucleated RBC 0.00 /100 WBC [facility] Neutrophils 75.3 (H) 36.0 - 66.0 % [facility] Lymphocytes 12.8 (L) 24.0 - 44.0 % [facility] Monocytes 10.5 (H) 0.0 - 6.0 % [facility] Eosinophils 0.5 0.0 - 6.0 % [facility] Basophils 0.4 0.0 - 1.2 % [facility] Immature 0.5 0.0 - 1.0 % [place] granulocytes [facility] Specimen Blood Performing Organization Address City/[facility] Ph one Number [facility] [address] [place] [address] PATHOLOGY AND GENOMIC MEDICINE [address] * Thyroid stimulating hormone (09/21/2019 5:19 AM CDT) Only the most recent of 2 results within the time period is included. TSH 2.54 0.27 - 4.20 uIU/mL [facility] Specimen Blood Performing Organization Address City/State/Zipcode Ph one Number [facility] OF [address] [place], [place] [id number] PATHOLOGY AND GENOMIC MEDICINE [address] [place] [address] HOSPITAL * Hemoglobin A1c (09/21/2019 5:19 AM CDT) Only the most recent of 4 results within the time period is included. Hemoglobin A1C 5.5 4.0 - 5.6 % [place] Comment: GNOSTICIST HbA1c cutoffs for diagnosing [place] diabetes: HOSPITAL 4.0% - 5.6% = normal 5.7% - 6.4% = increased risk for diabetes (prediabetes)9 >=6.5% = diabetes9 Goals for glycemic control (ADA 2016) < 7.0% Target for non adults with diabetes. More or less stringent targets may be appropriate for individual patients. <7.5% Target for Children and adolescents with type 1 diabetes. Specimen Blood Performing Organization Address City/State/[facility] Ph one Number [facility] OF [address] [place] [address] PATHOLOGY AND GENOMIC MEDICINE [place] GNOSTICIST [place] [address] * Us duplex venous lower extremity [...] subcutaneous edema of the left lower extremity. [facility]-[id number] Procedure Note Interface, Radiology Results Incoming - [...] subcutaneous edema of the left lower extremity. [facility]-[id number] Performing Organization Address City/[facility] Ph one Number [facility] [address] [place] [address] * B natriuretic peptide (09/20/2019 6:46 PM CDT) Only the most recent of 4 results within the time period is included. Pathologist [facility] BNP 37 0 - 100 pg/mL [facility] Specimen Blood Performing Organization Address City/[facility] Ph one Number [facility] [address] [place] [address] PATHOLOGY AND [facility] MEDICINE [address] * Lipase level (09/20/2019 6:46 PM CDT) Only the most recent of 3 results within the time period is included. [facility] Lipase 20 13 - 60 U/L [facility] Specimen Blood Performing Organization Address [facility] Ph one Number [facility] [address] [place] [address] PATHOLOGY AND GENOMIC MEDICINE [address] * Hepatic function panel (09/20/2019 6:46 PM CDT) Only the most recent of 2 results within the time period is included. Pathologist [facility] Albumin 4.0 3.5 - 5.0 g/dL [facility] Total bilirubin 0.7 0.2 - 1.2 mg/dL [facility] Bilirubin 0.2 0.0 - 0.4 mg/dL [facility] Alkaline 45 0 - 129 U/L [place] phosphatase [facility] Protein 7.1 6.3 - 8.3 g/dL [facility] ALT 16 5 - 50 U/L [facility] AST 28 10 - 50 U/L [facility] Specimen Blood Performing Organization Address City/[facility] Ph one Number [facility] [address] [place] [id number] PATHOLOGY AND GENOMIC MEDICINE [facility] [address] [facility] [address] * XR Knee 4+ Vw Left [...] Vascular calcification present. HMRM-SPHYAAL Performing Organization Address [facility]/On License Of [facility] one Number HM [facility] [address] [place] [address] * XR Tibia Fibula 2 Vw Left [...] foreign body noted. HMRM-SPHYAAL Performing Organization Address City/[facility] Ph one Number [facility] [address] [place] [address] * Manual differential (05/26/2019 4:47 AM ORTHOPAEDIC DOCTOR) Only the most recent of 2 results within the time period is included. Manual PERFORMED [place] differential [facility] Neutrophils 92.0 (H)Comment: Corrected 36.0 - 66.0 % SHERI STON result; previously reported as GNOSTICIST 86.5 on 05/26/2019 at 06:02 by [facility] Lymphocytes 6.0 (L)Comment: Corrected 24.0 - 44.0 % [place] result; previously reported as GNOSTICIST 11.8 on 05/26/2019 at 06:02 by [facility] Monocytes 2.0Comment: Corrected result; 0.0 - 6.0 % [place] previously reported as 1.0 on GNOSTICIST 05/26/2019 at 06:02 by [facility] Eosinophils 0.0Comment: Corrected result; 0.0 - 6.0 % [place] previously reported as 0.2 on GNOSTICIST 05/26/2019 at 06:02 by [facility] Basophils 0.0 0.0 - 1.2 % [facility] Metamyelocytes 0 0 - 1 % [facility] Promyelocytes 0 0 - 1 % [facility] Platelet slide Aimee adequate [place] review [facility] Giant platelets Occasional [facility] Specimen Performing Organization Address City/State[facility] Ph one Number [facility] [address] [place] [address] PATHOLOGY AND GENOMIC MEDICINE [facility] [address] [place] [address] HOSPITAL * Comprehensive metabolic panel (05/26/2019 4:47 AM ORTHOPAEDIC DOCTOR) Only the most recent of 7 results within the time period is included. Sodium 140 135 - 150 mEq/L [facility] Potassium 5.0 3.5 - 5.0 mEq/L [facility] Chloride 100 98 - 112 mEq/L [facility] CO2 25 24 - 31 mmol/L [facility] Anion gap 15@ANIO 7 - 15 mEq/L [facility] BUN 29 (H) 7 - 18 mg/dL [facility] Creatinine 1.90 (H) 0.70 - 1.20 mg/dL [facility] Glucose 133 (H) 65 - 100 mg/dL [facility] Calcium 8.4 (L) 8.8 - 10.2 mg/dL [facility] Protein 6.4 6.3 - 8.3 g/dL [facility] Albumin 3.5 3.5 - 5.0 g/dL [facility] A/G ratio 1.2 0.7 - 3.8 [facility] Alkaline 46 0 - 129 U/L [place] phosphatase [facility] AST 15 10 - 50 U/L [facility] ALT 10 5 - 50 U/L [facility] Total bilirubin <0.3 0.2 - 1.2 mg/dL [facility] Specimen Plasma specimen Performing Organization Address City/State/Zipcode Ph one Number [facility] [place] [address] PATHOLOGY AND GENOMIC MEDICINE [address] * Respiratory pathogen panel (05/26/2019 4:00 AM ORTHOPAEDIC DOCTOR) Only the most recent of 3 results within the time period is included. Pathologist [facility] Respiratory Negative for all pathogens [place] pathogen panel tested: GNOSTICIST Negative for Adenovirus [facility] Negative for Coronavirus HKU1 Negative for Coronavirus [...] Specimen Nares - Aspirate Performing Organization Address City/[facility] Ph one Number [facility] DEPARTMENT OF [address] [place] [address] PATHOLOGY AND GENOMIC MEDICINE [place] GNOSTICIST [address] [place] [address] HOSPITAL * Influenza antigen (05/26/2019 4:00 AM ORTHOPAEDIC DOCTOR) Pathologist [facility] Influenza Negative for Influenza A/B [place] antigen antigen. GNOSTICIST Comment: [place] Specimen Information HOSPITAL Specimen Source: Nares Specimen Site: Aspirate Specimen Nares - Aspirate Performing Organization Address City/State/[facility] Ph one Number [facility] [address] [facility] [place] [address] PATHOLOGY AND [place] [address] HOSPITAL * Lactic acid level, SEPSIS - Now and repeat 2x every 3 hours (05/25/2019 8:59 PM ORTHOPAEDIC DOCTOR) Only the most recent of 3 results within the time period is included. Pathologist [facility] Lactic acid 2.1 0.5 - 2.2 mmol/L [place] Comment: GNOSTICIST Results called to and read [place] back by ROBERTO CARLOS RUELAS NP at HOSPITAL 21:15 05/25/2019 by DXP. Specimen Blood Performing Organization Address [facility] one Number [facility] [address] [facility] [place] [address] PATHOLOGY AND GENOMIC MEDICINE [address] * Sepsis Clinical Assessment (05/25/2019 4:40 PM ORTHOPAEDIC DOCTOR) Only the most recent of 2 results [...] not worsen, snooze alerts until: 05/26/2019 04:40 ORTHOPAEDIC DOCTOR Organ Dysfunction Lactate > 2.0 mmol/L due [...] culture, aerobic & anaerobic (05/25/2019 3:25 PM ORTHOPAEDIC DOCTOR) Only the most recent of 4 results within the time period is included. Blood culture No growth after 5 days of [place] isolate incubation. GNOSTICIST Comment: HOSPITAL Specimen Information Specimen Source: Blood Specimen Site: Antecubital Left Specimen Blood Performing Organization Address City/State/Zipcode Ph one Number [facility] DEPARTMENT OF [address] [place] [address] PATHOLOGY AND GENOMIC MEDICINE [place] GNOSTICIST [address] [place] [address] HOSPITAL * XR Chest 1 Vw Portable (05/25/2019 2:56 PM ORTHOPAEDIC DOCTOR) Only the most recent of 3 results [...] upper abdomen related to the s pleen. [facility]-[id number] Procedure Note Hm Interface, Radiology Results Incoming - 05/25/2019 3:04 PM ORTHOPAEDIC DOCTOR EXAMINATION: XR CHEST 1 VW PORTABLE CLINICAL HISTORY: rhonchi COMPARISON: 04/05/2019 IMPRESSION: Heart size and pulmonary vasculature are normal. There is aortic arch calcification and aneurysmal dilation, similar to prior. Lungs are clear. No effusion or pneumothorax noted. Visualized osseous structures are intact. Eggshell calcification noted in the left upper abdomen related to the spleen. [facility]-[id number] Performing Organization Address City/State/Zipcode Ph one Number [facility] [address] [place] [address] * ECG ED Preliminary Interpretation - Not an Order (05/25/2019 2:50 PM ORTHOPAEDIC DOCTOR) Only the most recent of 4 results within the time period is included. Narrative Performed At Hubert Babin MD 05/26 12:37 AM ECG ED Preliminary Interpretation - Not an Order Performed by: Hubert Babin MD Authorized by: Hubert Babin MD ECG reviewed by ED Physician in the abs ence of a rubber engraver: yes Interpretation: Interpretation: non-specific Rate: ECG rate: 50 ECG rate assessment: normal Rhythm: Rhythm: sinus rhythm QRS: QRS axis: Normal QRS intervals: Normal * CT Abdomen Pelvis W Contrast (04/25/2019 10:42 AM ORTHOPAEDIC DOCTOR) Specimen Narrative Performed At EXAMINATION: CT ABDOMEN [...] for further evaluation 5.Additional findings as above. [id number] Procedure Note Hm Interface, Radiology Results Incoming - 04/25/2019 11:10 AM ORTHOPAEDIC DOCTOR EXAMINATION: CT ABDOMEN PELVIS W CONTRAST CLINICAL [...] for further evaluation 5.Additional findings as above. [id number] Performing Organization Address City/State/Zipcode Ph one Number [facility] [address] [place] [address] * Urine drugs of abuse screen (04/25/2019 10:11 AM ORTHOPAEDIC DOCTOR) Only the most recent of 2 results within the time period is included. Amphetamine Negative [place] screen, urine [facility] Barbiturate Negative [place] screen, urine GNOSTICIST [facility] Benzodiazepine Negative [place] screen, urine [facility] Cocaine screen, Negative [place] urine GNOSTICIST [facility] Methadone Negative [place] metabolite GNOSTICIST (EDDP), urine [facility] Opiates screen, Negative [place] urine [facility] Oxycodone Negative [place] screen, urine GNOSTICIST [facility] Phencyclidine Negative [place] screen, urine GNOSTICIST [facility] Cannabinoid Negative [place] screen, urine Comment: GNOSTICIST Drug screen minimum [place] concentration of detectability [facility] Amphetamines 1000 ng/mL Barbiturates 200 ng/mL Benzodiazepines [...] - Urine, clean catch Performing Organization Address [facility] Ph one Number [facility] [address] [place] [id number] PATHOLOGY AND GENOMIC MEDICINE [facility] [address] * XR Hip 2-3 View Left (04/07/2019 3:00 PM ORTHOPAEDIC DOCTOR) Specimen Narrative Performed At EXAMINATION: XR HIP 2-3 VIEWS LEFT [facility] CLINICAL HISTORY: hip pain COMPARISON: None. FINDINGS: No bone or joint abnormality is appreci ated. IMPRESSION: If pain persists, further evaluation wi MR scanning could be of benefit. [facility]-[id number] Procedure Note Hm Interface, Radiology Results Incoming - 04/07/2019 3:20 PM ORTHOPAEDIC DOCTOR EXAMINATION: XR HIP 2-3 VIEWS LEFT CLINICAL HISTORY: hip pain COMPARISON: None. FINDINGS: No bone or joint abnormality is appreciated. IMPRESSION: If pain persists, further evaluation with MR scanning could be of benefit. [facility]-[id number] Performing Organization Address [facility] Ph one Number [facility] [address] [place] [address] * XR Femur 2 Vw Left (04/07/2019 2:59 PM ORTHOPAEDIC DOCTOR) Specimen Narrative Performed At EXAMINATION: XR FEMUR 2 VW LEFT [facility] CLINICAL HISTORY: thigh pain COMPARISON: None. FINDINGS: Minimal vascular calcifications are not ed. IMPRESSION: No bone or joint abnormality is appreci ated. [facility]-[id number] Procedure Note Hm Interface, Radiology Results Incoming - 04/07/2019 3:04 PM ORTHOPAEDIC DOCTOR EXAMINATION: XR FEMUR 2 VW LEFT CLINICAL HISTORY: thigh pain COMPARISON: None. FINDINGS: Minimal vascular calcifications are noted. IMPRESSION: No bone or joint abnormality is appreciated. [facility]-[id number] Performing Organization Address City/State/Zipcode Ph one Number [facility] [address] [place] [address] * CTA Abdomen Pelvis W And Or Wo Contrast (04/06/2019 9:42 AM ORTHOPAEDIC DOCTOR) Specimen Narrative Performed At EXAMINATION: CT ANGIOGRAM [...] bypass graft is patent. ILIAC ARTERIES: The [place] bilateral co mmon iliac arteries and proximal [...] the right re nal artery. 4. Cholelithiasis. [facility]-[id number] Procedure Note Hm Interface, Radiology Results Incoming - 04/06/2019 10:15 AM ORTHOPAEDIC DOCTOR EXAMINATION: CT ANGIOGRAM ABDOMEN PELVIS W AND [...] bypass graft is patent. ILIAC ARTERIES: The [place] bilateral common iliac arteries and proximal bilateral [...] the right eve al artery. 4. Cholelithiasis. [facility]-[id number] Performing Organization Address City/State/Zipcode Ph one Number [facility] [address] [place] [address] * Lipid panel (04/05/2019 12:01 PM ORTHOPAEDIC DOCTOR) Only the most recent of 2 results within the time period is included. Cholesterol 126 0 - 199 mg/dL [facility] Triglycerides 48 0 - 149 mg/dL [facility] HDL cholesterol 72 40 - 9,999 mg/dL [facility] LDL cholesterol 55Comment: Result obtained by 0 - 99 mg/dL [place] direct LDL measurement [facility] Lipid panel See below [place] interpretation Comment: GNOSTICIST Total Cholesterol (mg/dL) [facility] Cholesterol [facility] (mg/dL) <200 Desirable <100 Optimal 200-239 Borderline-high [...] Performing Organization Address City/State/Zipcode Ph one Number [facility] [address] [place] [phone] PATHOLOGY AND GENOMIC MEDICINE [facility] [address] * CT Chest W Contrast (04/05/2019 9:40 AM ORTHOPAEDIC DOCTOR) Specimen Narrative Performed At EXAMINATION: HM RADIANT [...] Radiology Results Incoming - 04/05/2019 10:16 AM ORTHOPAEDIC DOCTOR EXAMINATION: CT CHEST W CONTRAST CLINICAL HISTORY: [...] Performing Organization Address City/State/Zipcode Ph one Number [facility] [address] [place] [address] * CRITICAL CARE (04/05/2019 6:11 AM ORTHOPAEDIC DOCTOR) Narrative Performed At Hubert Babin MD 8:30 [...] i VTI 1.65 cm2/m2 HM [facility] BSA [place] BMI 22.96 kg/m2 HM [facility] E wave [...] mitral valve appears thickened. Performing Organization Address City/[facility] Ph one Number [facility] [address] [place] [address], * Lactic acid level (11/24/2018 11:10 AM CDT) Only the most recent of 6 results within the time period is included. Lactic acid 1.7 0.5 - 2.2 mmol/L [facility] Specimen Blood Performing Organization Address City/[facility] Ph one Number [facility] [address] [place] [address] PATHOLOGY AND GENOMIC MEDICINE [facility] [address] [place] [address] HOSPITAL * CT Angiogram Pe Chest (11/22/2018 [...] evidence of acute cardiopulmonary process or pneumonia. [id number] Procedure Note Interface, Radiology Results Incoming - [...] evidence of acute cardiopulmonary process or pneumonia. [id number] Performing Organization Address City/State/Zipcode Ph one Number [facility] [address] [place] [address] * D-dimer (11/22/2018 9:45 AM CDT) D-dimer 0.92 (H) 0.00 - 0.40 ug/mL [place] Comment: FEU GNOSTICIST Units are ug/ml Fibrinogen [place] Equivalent Unit. [facility] When combined with low clinical probability, D-dimer [...] and malignancies. Specimen Blood Performing Organization Address City/[facility] Ph one Number [facility] OF [address] [facility] [place] [address] PATHOLOGY AND GENOMIC MEDICINE [facility] [address] * Ammonia level (11/21/2018 10:23 AM CDT) Ammonia 19 16 - 60 umol/L [facility] Specimen Plasma specimen Performing Organization Address City/[facility] Ph one Number [facility] [address] [facility] [place] [address] PATHOLOGY AND GENOMIC MEDICINE [facility] [address] [place] [address] * Alcohol level, blood (11/21/2018 7:18 AM CDT) Alcohol None Detected mg/dL [place] Comment: GNOSTICIST Normal [place] None Detected HOSPITAL Legal Intoxication in [place] 80 mg/dL (0.08%) Toxic Concentration 200 mg/dL (0.2%) Potentially Fatal 350-500 mg/dL (0.35%-0.5%) Alcohol percent None Detected % [facility] Specimen Blood Performing Organization Address [facility] Ph one Number [facility] OF [address] [place] [address] PATHOLOGY AND GENOMIC MEDICINE [facility] [address] [facility] [address] * Salicylate level (11/21/2018 7:18 AM CDT) Salicylate <0.4 (L) 3.0 - 30.0 mg/dL [place] Comment: GNOSTICIST Therapeutic Range: [facility] 5 - 30 mg/dL HOSPITAL Specimen Blood Performing Organization Address City/[facility] Ph one Number [facility] [address] [facility] [place] [address] PATHOLOGY AND GENOMIC MEDICINE [facility] [address] [facility] [address] * Arterial blood gas (2018 4:35 PM CDT) Only the most recent of 2 results within the time period is included. pH, arterial 7.316 (LL) 7.350 - 7.450 units [place] Comment: GNOSTICIST Results called to and read [place] back by _[facility] (name/location) at _ 2018 16:49 (date/time) by _[facility]. pCO2, arterial 58.7 (H) 35.0 - 45.0 mmHg [facility] pO2, arterial 115.0 (H) 80.0 - 90.0 mmHg [facility] O2 saturation, 98.3 95.0 - 100.0 % [place] arterial [facility] Base excess, 3.8 mEq/L [place] arterial [facility] Bicarbonate 30.0 (H) 21.0 - 28.0 mEq/L [facility] O2 content 17.5 VOL% [facility] FiO2, inspired 30.0 % [place] O2% [facility] Carboxyhemoglob 3.0 (H) 0.0 - 1.4 % [place] in Comment: GNOSTICIST Reference Ranges: [place] Carboxyhemoglobin [facility] Non smoker: 0.0 - 2.0% Smoker: 2.1 - 5.0% Heavy smoker: 5.1 - 9% Methemoglobin 0.5 0.0 - 1.0 % [facility] Hemoglobin, 13.0 (L) 14.0 - 18.0 g/dL [place] blood gas [facility] pO2, A-a 33.6 mmHg [facility] Specimen Blood Performing Organization Address City/State/Zipcoms Ph one Number [facility] [address] [place] [address] PATHOLOGY AND GENOMIC MEDICINE [facility] [address] [place] [address] HOSPITAL after 09/28/2018 Insurance Type Payer Benefit Subscriber ID Effective Phone Address Plan / Dates Group Medicare MEDICARE MEDICARE xxxxxxxxxxx 2011-P [place], PART A resent [place] P[place] BC[place] BCBS OUT xxxxxxxxxxxxxxx 2015-P OF STATE resent ([place]) [place] [address] Advance Directives For more information, please contact: [phone] Patient Furnace Operator And Tender Explanation Type Date Recorded Advance Directives, 01/19/2017 10:57 PM Living Will and Medical Power of [place] Advance Directives, 04/25/2019 9:41 AM Living Will and Medical Power of [place] Advance Directives, 04/25/2019 9:41 AM Living Will and Medical Power of [place] Advance Directives, 08/01/2017 11:01 PM Living Will and Medical Power of [place] Advance Directives, 10/04/2017 9:22 PM Living Will and Medical Power of [place] Advance Directives, 10/27/2017 5:42 PM Living Will and Medical Power of [place] Advance Directives, 10/28/2017 5:49 PM Living Will and Medical Power of [place] Advance Directives, 06/10/2018 5:52 PM Living Will and Medical Power of [place] Advance Directives, 2018 3:01 PM Living Will and Medical Power of [place] Advance Directives, 03/09/2019 2:13 AM Living Will and Medical Power of [place] Advance Directives, 04/05/2019 8:01 AM Living Will and Medical Power of [place] Advance Directives, 05/25/2019 5:05 PM Living Will and Medical Power of [place] Advance Directives, 09/20/2019 2:26 PM Living Will and Medical Power of [place] Advance Directives, 09/20/2019 2:28 PM Living Will and Medical Power of [place] Advance Directives, 09/20/2019 2:29 PM Living Will and Medical Power of [place] Date Inactivated Comments Code Status Date Activated [...]
[2019-09-29] MEDS: MORPHINE SULFATE INJ 4 MG/ML INJ 1ML IV PRN (12:44)
[2019-09-29] MEDS: ONDANSETRON HCL INJ 2MG/ML 2ML 2 MG/ML VIAL IV PRN (12:44)
[2019-09-29 12:55] LABS: ALANINE AMINOTRANSFERASE 15 IU/L (0-55); ALBUMIN 3.1 g/dL (3.5-5.0); ALBUMIN/GLOBULIN RATIO 1.1 (0.8-2.0); ALKALINE PHOSPHATASE 35 IU/L (40-150); ANION GAP 11.6 mmol/L (8-16); BLOOD UREA NITROGEN 13 mg/dL (7-26); BUN/CREATININE RATIO 12 (6-25); CALCIUM 9.1 mg/dL (8.4-10.2); CARBON DIOXIDE 27 mmol/L (22-29); CHLORIDE 99 mmol/L (98-107); CREATINE KINASE 69 IU/L (30-200); CREATININE, SERUM 1.09 mg/dL (0.72-1.25); EST GLOMERULAR FILTRATION RATE > 60 ML/MIN (60-); GLUCOSE 91 mg/dL (74-118); POTASSIUM 4.6 mmol/L (3.5-5.1); SODIUM 133 mmol/L (136-145)
[2019-09-29] MEDS ORDERED: DEXTROSE 50% SYRINGE 50 ML IV PRN (13:00)
[2019-09-29] MEDS ORDERED: VANCOMYCIN 1GM/NS 250 ML 250 ML IV ONE (13:00)
[2019-09-29 13:25] VITALS: BP 115/55
[2019-09-29] MEDS ORDERED: SODIUM CHLORIDE 0.9% 250ML 250 ML ONE (13:32)
[2019-09-29] MEDS ORDERED: ACETAMINOPHEN 325 MG TAB PO PRN (13:45)
--- NOTE | 2019-09-29 13:45 | NUR ---
recd pt from er via w/c [id number],iv to lt ac patent,wound to lt leg changed,cultures pending.pain level 3.call welch in reach hob elevated.
[2019-09-29] MEDS ORDERED: PANTOPRAZOLE SO40 MG PO (13:58)
[2019-09-29] MEDS ORDERED: LISINOPRIL10 MG PO (13:58)
[2019-09-29] MEDS ORDERED: METOPROLOL SUCC50 MG PO (13:58)
[2019-09-29] MEDS: VANCOMYCIN 1GM/NS 250 ML 250 ML IV SCH (14:00)
[2019-09-29 15:00] LABS: BILIRUBIN,URINE NEGATIVE (NEGATIVE); CLARITY,URINE SL CLOUDY (CLEAR); COLOR,URINE YELLOW (YELLOW); KETONES,URINE NEGATIVE (NEGATIVE); LEUKOCYTE ESTERASE ,URINE NEGATIVE (NEGATIVE); NITRITE,URINE NEGATIVE (NEGATIVE); PROTEIN,URINE DIPSTICK NEGATIVE (NEGATIVE); URINE UROBILINOGEN 0.2 mg/dL (0.2 - 1)
[2019-09-29 15:10] LABS: BACTERIA,URINE MODERATE /HPF; EPITHELIAL CELLS,URINE RARE /LPF
[2019-09-29 15:32] VITALS: BP 115/55
[2019-09-29] MEDS: ALBUTEROL/IPRATROPIUM 3 ML NEB NEB PRN (15:50)
[2019-09-29 15:54] VITALS: BP 123/52
[2019-09-29] MEDS ORDERED: ULTRAM 50MG50 MG PO (16:22)
[2019-09-29] MEDS ORDERED: VIAGRA50 MG PO (16:22)
[2019-09-29] MEDS ORDERED: CYCLOBENZAPRINE10 MG PO (16:22)
[2019-09-29] MEDS ORDERED: ANORO ELLIPTA1 EACH INH (16:22)
[2019-09-29] MEDS ORDERED: KLONOPIN1 MG PO (16:22)
[2019-09-29] MEDS ORDERED: TRAZODONE HCL50 MG PO (16:22)
[2019-09-29] MEDS ORDERED: SPIRIVA18 MCG INH (16:22)
[2019-09-29] MEDS ORDERED: SIMVASTATIN40 MG PO (16:30)
[2019-09-29] MEDS ORDERED: INSULIN REGULAR, HUMAN 100 UNIT/1 ML 3ML VIAL SQ SCH (16:30)
[2019-09-29] MEDS: INSULIN REGULAR, HUMAN 100 UNIT/1 ML 3ML VIAL SQ SCH ×2 (16:30→20:41)
[2019-09-29] MEDS ORDERED: NASONEX17 GM (16:30)
[2019-09-29] MEDS ORDERED: CYMBALTA30 MG (16:30)
[2019-09-29] MEDS ORDERED: PROAIR HFA INH8.5 GM IH (16:30)
[2019-09-29] MEDS ORDERED: METFORMIN HCL500 MG PO (16:30)
[2019-09-29] MEDS ORDERED: LORATADINE10 MG PO (16:30)
[2019-09-29] MEDS ORDERED: ASPIR 8181 MG PO (16:30)
[2019-09-29] MEDS ORDERED: NEURONTIN300 MG PO (16:30)
[2019-09-29] MEDS: PIPER-TAZ 3.375 GM 50 ML IV SCH (17:51)
--- NOTE | 2019-09-29 17:51 | NUR ---
PT UP IN BED SLEEPING ,NO S/S DISCOMFORT
[2019-09-29 20:08] VITALS: BP 120/58
[2019-09-29 21:05] VITALS: BP 120/58
--- NOTE | 2019-09-29 21:05 | NUR ---
PATIENT RESTING IN BED IN STABLE CONDITION, NO SIGNS OF DISTRESS NOTED. DRESSING ON LEFT LOWER EXTREMITY IS CLEAN, DRY, AND INTACT, NO DRAINAGE NOTED. PATIENT VOICES NO PAIN AT THIS TIME AND PADDING APPLIED TO SACRAL AREA. BED IS IN LOWEST POSITION, BOTH SIDE RAILS ARE UP, CALL LIGHT IS WITHIN REACH, WILL CONTINUE TO MONITOR.
[2019-09-30] VITALS (8 sets, daily range): BP systolic 104–122; BP diastolic 56–83
--- NOTE | 2019-09-30 01:17 | NUR ---
PATIENT AMBULATED OUTSIDE THE ROOM, DOWN THE SILVESTRE ASKING HOW GET OUTSIDE TO SMOKE A CIGARETTE. ASSISTED PATIENT SAFELY BACK TO ROOM AND INFORMED HIM OF THE SMOKING POLICY AND THAT HE COULD NOT GO OUTSIDE AT THIS TIME. UPON ENTERING THE PATIENT'S THE SHOWER WAS RUNNING AND THE ROOM SMELLED LIKE CIGARETTE SMOKE. ASKED PATIENT DID HE SMOKE IN THE ROOM AND PATIENT VOICED THAT HE DID NOT. ASSESSED PATIENT ON ORIENTATION TO PERSON, PLACE, AND TIME AND HE ANSWERED ALL THREE AND EVENTUALLY ADMITTED TO SMOKING IN RESTROOM. PATIENT VOICED THAT HE WAS CONFUSED UPON WAKING UP BUT FEELS FINE NOW, IV WAS DISLODGED AND TELEMONITOR LEADS WERE REMOVED PREVIOUSLY BY PATIENT. NEW IV STARTED AND IS PATENT AND FLOWING, LEADS WERE PLACED BACK ON AND PATIENT IS NOW RESTING IN BED COMFORTABLY. WILL CONTINUE TO MONITOR.
[2019-09-30] MEDS: PIPER-TAZ 3.375 GM 50 ML IV SCH ×4 (01:19→17:37)
[2019-09-30] MEDS: VANCOMYCIN 1GM/NS 250 ML 250 ML IV SCH ×2 (01:57→14:30)
[2019-09-30 06:16] LABS: BASOPHILS % 0.5 % (0.0-1.0); EOSINOPHILS # (AUTO) 0.2 (0.0-0.4); EOSINOPHILS % 2.4 % (0.0-6.0); HEMATOCRIT 31.6 % (38.2-49.6); HEMOGLOBIN 10.5 g/dL (14.0-18.0); LYMPHOCYTES % 16.2 % (18.0-39.1); MEAN CORPUSCULAR HEMOGLOBIN 32.1 pg (28-32); MEAN CORPUSCULAR HGB CONC 33.2 g/dL (31-35); MEAN CORPUSCULAR VOLUME 96.6 fL (81-99); MONOCYTES # (AUTO) 0.7 (0.2-0.8); MONOCYTES % 11.2 % (4.4-11.3); NEUTROPHILS # (AUTO) 4.4 (2.1-6.9); NEUTROPHILS % 69.4 % (38.7-80.0); PLATELET COUNT 243 x10e3/uL (140-360); RED BLOOD COUNT 3.27 x10e6/uL (4.3-5.7); RED CELL DISTRIBUTION WIDTH 11.9 % (11.7-14.4)
[2019-09-30 06:29] LABS: ALANINE AMINOTRANSFERASE 13 IU/L (0-55); ALBUMIN 2.8 g/dL (3.5-5.0); ALBUMIN/GLOBULIN RATIO 1.1 (0.8-2.0); ALKALINE PHOSPHATASE 36 IU/L (40-150); ANION GAP 11.4 mmol/L (8-16); BLOOD UREA NITROGEN 14 mg/dL (7-26); BUN/CREATININE RATIO 14 (6-25); CALCIUM 8.4 mg/dL (8.4-10.2); CARBON DIOXIDE 28 mmol/L (22-29); CHLORIDE 100 mmol/L (98-107); CREATININE, SERUM 0.99 mg/dL (0.72-1.25); EST GLOMERULAR FILTRATION RATE > 60 ML/MIN (60-); GLUCOSE 103 mg/dL (74-118); POTASSIUM 4.4 mmol/L (3.5-5.1); SODIUM 135 mmol/L (136-145)
--- NOTE | 2019-09-30 07:00 | NUR ---
received bedside report. pt is alert resting in bed, no s/s of distress. PM nurse reported that the patient was caught around midnight smoking a cigarette in the bathroom. call light within reach and instructed pt to call RN for help
[2019-09-30] MEDS: INSULIN REGULAR, HUMAN 100 UNIT/1 ML 3ML VIAL SQ SCH ×4 (07:30→21:00)
--- NOTE | 2019-09-30 07:35 | NUR ---
SHARIF informed RN that she caught the patient in the bathroom smoking a cigarette. notified dry house tender, paged Dr. Velasquez and waiting for callback
[2019-09-30] MEDS ORDERED: ALBUTEROL SULFATE HFA 8GM INHALATION AEROSOL INH PRN (09:45)
[2019-09-30] MEDS ORDERED: FLUTICASONE PROPIONATE NASAL SPRAY NS PRN (09:45)
[2019-09-30] MEDS ORDERED: CLONAZEPAM 1 MG TAB PO PRN (09:45)
[2019-09-30] MEDS ORDERED: LISINOPRIL 10 MG TAB PO PRN (09:45)
--- NOTE | 2019-09-30 11:19 | History and Physical ---
HISTORY OF PRESENT ILLNESS: The patient is a 73-year-old male with past medical history positive for COPD, coronary artery disease, peripheral vascular disease, diabetes mellitus with diabetic neuropathy, came to my office because of followup after being discharged from the hospital. He had several wounds on the left leg. He apparently fell by tripping over couple of cables. On examination, he has foul smelling discharge from several areas of the open wounds on the leg. They look like severe cellulitis. The patient was sent to the hospital. REVIEW OF SYSTEMS: CARDIOVASCULAR: No chest pain or palpitation. RESPIRATORY: No shortness of breath. No cough. GASTROINTESTINAL: No nausea. No vomiting. No diarrhea. GENITOURINARY: No frequency or dysuria. ALLERGIES: HE CLAIMS HE IS NOT ALLERGIC TO ANYTHING. PAST MEDICAL HISTORY: Peripheral vascular disease, coronary artery disease, hypertension, COPD, diabetes mellitus with diabetic neuropathy, hyperlipidemia. SOCIAL HISTORY: He smokes. He drinks. He uses recreational drug like marijuana. PHYSICAL EXAMINATION: HEART: Showed regular rhythm. Normal S1, S2 sound. LUNGS: Clear bilaterally. ABDOMEN: Soft. EXTREMITIES: Show multiple open wounds on the left leg, one of them in the back part of the left leg with necrotic area. VITAL SIGNS: Temperature 97.5, heart rate 97 per minute, respiratory rate 16 per minute, blood pressure 104/83, oxygen saturation 96%. LABORATORY DATA: Wound culture, blood culture has been sent. IMPRESSION: 1. Left leg wounds with cellulitis. 2. Chronic obstructive pulmonary disease. 3. Coronary artery disease. 4. Peripheral vascular disease. 5. Uncontrolled diabetes mellitus type 2 with diabetic neuropathy. PLAN OF TREATMENT: 1. We are going to continue with Zosyn 3.375 g IV q.6 hours. 2. Vancomycin 1 g IV twice a day. 3. Tylenol 325 mg q.4 hours as needed for mild pain. 4. Albuterol, Atrovent q.4 hours as needed for shortness of breath. 5. Continue monitoring blood sugar before meals and at bedtime. 6. Continue Zofran 4 mg IV q.4 hours as needed for nausea and vomiting. 7. Continue with albuterol q.6 hours. 8. Aspirin 81 mg daily. 9. Clonazepam 1 mg three times a day as needed for anxiety. 10. Continue with Cymbalta 60 mg daily. 11. Gabapentin 600 mg three times a day for diabetic neuropathy. 12. Lisinopril 10 mg daily. 13. Claritin 10 mg daily. 14. Metformin 500 mg twice a day. We are going to get a wound care consult, Infectious Disease consultation also. The patient most likely is going to need long-term antibiotics and I agree the patient might qualify to go to a long- term care hospital most like. Also, we are going to start the patient on Nicoderm patch because the patient is a heavy smoker, he was caught smoking in his room. MD СЕРЕГЙ Benjamin/ANNEL /[id number]
--- NOTE | 2019-09-30 11:58 | NUR ---
CONSULT [id number]\ VENOUS stasis ulcers local care agree with abx for now
[2019-09-30] MEDS: GABAPENTIN 300 MG CAP PO SCH ×2 (14:30→21:45)
[2019-09-30] MEDS: MORPHINE SULFATE INJ 4 MG/ML INJ 1ML IV PRN ×2 (17:25→22:04)
[2019-09-30] MEDS: METFORMIN HCL 500 MG TAB PO SCH (17:36)
[2019-09-30] MEDS: METOPROLOL SUCCINATE 25 MG TAB XL PO SCH (17:36)
--- NOTE | 2019-09-30 18:04 | Consultation ---
DATE OF CONSULTATION: HISTORY OF PRESENT ILLNESS: The patient, who is a 73-year-old white male, history of COPD, coronary artery disease, hypertension, peripheral vascular disease, and diabetes mellitus, comes in with wound in his left leg. The patient apparently fell and tripped over the cable, had wound on his leg. Drainage coming from his leg, which has been going on for last few days. The patient does not provide any other information. The patient was started on vancomycin and Zosyn. I am asked to see him. His blood cultures have been negative. LABORATORY STUDIES: White count 6.5, hemoglobin 10.5, and hematocrit is 31. Sodium 135, potassium 4.4 with a creatinine of 0.99. PHYSICAL EXAMINATION: GENERAL: He is currently alert and does not seem to be in acute distress. VITAL SIGNS: Stable, afebrile. HEENT: He is not icteric. NECK: Supple. CHEST: Clear bilateral. HEART: S1 and S2. No S3, S4, or murmurs. ABDOMEN: Soft. Bowel sounds present. No tenderness. EXTREMITIES: There is redness and swelling on the buttock area with induration and redness. IMPRESSION: Cellulitis of the thigh, on the buttock area. Agree with vancomycin. Agree with Zosyn. Obtain ultrasound to rule out for abscess. Agree with wound care and local heat pad. Further recommendations to follow. MD MEGHAN Van/ANNEL /[id number]
--- NOTE | 2019-09-30 19:31 | NUR ---
RECEIVED REPORT FROM PREVIOUS NURSE. CALL LIGHT WITHIN REACH. PATIENT IN BED.
[2019-09-30] MEDS: TRAZODONE HCL 50 MG TAB PO SCH (21:45)
[2019-09-30] MEDS: VALACYCLOVIR HCL 500 MG TAB PO SCH (21:45)
[2019-09-30] MEDS: SIMVASTATIN 40 MG TAB PO SCH (21:45)
[2019-09-30] MEDS: ONDANSETRON HCL INJ 2MG/ML 2ML 2 MG/ML VIAL IV PRN (22:04)
[2019-10-01] VITALS (8 sets, daily range): BP systolic 108–124; BP diastolic 49–88
--- NOTE | 2019-10-01 00:31 | Consultation ---
DATE OF CONSULTATION: Wound Consultation Thank you, Dr. Velasquez, for asking to see this patient. HISTORY OF PRESENT ILLNESS: A 73-year-old male patient, history of smoking from age 9 and continues to smoke. He has history of COPD, coronary artery disease, and peripheral vascular disease. He was recently admitted and discharged from the hospital, was seen at Dr. Velasquez's office with a multiple wound necrotic on the left lower extremity and buttock ulcers, was sent for admission for treatment. The patient has left lower posterior thigh wound, necrotic and left anterior and lateral leg ulcer, necrotic consistent with PVD; however, it followed after trauma and nonhealing. 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 The patient is a poor historian. PAST MEDICAL HISTORY: Peripheral vascular disease, coronary artery disease, hypertension, COPD, diabetes, diabetic neuropathy, and hyperlipidemia. PERSONAL HISTORY: Smokes from age 9. Drinks alcohol. He uses marijuana. ALLERGIES: NONE. MEDICATIONS: Trazodone 50 mg at night, nicotine 21 mg patch, gabapentin 600 mg t.i.d., aspirin 81 mg daily, Tylenol 325 q.4h p.r.n., Spiriva inhaler daily, metoprolol 25 mg b.i.d., Flonase nasal spray, albuterol q.i.d., simvastatin 40 mg daily, loratadine 10 mg daily, Cymbalta 60 mg daily, tramadol 50 mg q.i.d., lisinopril 10 mg daily, pantoprazole 40 mg daily, morphine 4 mg q.4 hours, clonazepam 1 mg t.i.d., metformin 500 mg b.i.d., Zofran 4 mg q.4 hours p.r.n., vancomycin q.12 hours, and Zosyn q.6 hours. PHYSICAL EXAMINATION: GENERAL: Temperature 97.5, pulse 85, blood pressure 122/72, weight 154 pounds, height 5 feet 10 inches, and BMI 22. HEENT: Normal. NECK: No JVD. Lungs: Bilateral air entry diminished. CVS: Normal. ABDOMEN: Soft. EXTREMITIES: Lower extremities, no edema. Peripheral pulses felt. SKIN: The patient has a wound on the left anterior and lateral 1/3 of the leg, 50% necrotic, 50% slough and tender to touch and left lateral posterior thigh has a wound, 50% necrotic, 50% slough. Bilateral buttock, the patient has a wound, location suspicious of herpes genitalis. ASSESSMENT: Ulcers to the left lower extremity and posttraumatic nonhealing from peripheral vascular disease with cellulitis and necrotic eschar, bilateral buttock ulcer. PLAN: Continue antibiotic. We will apply Hydrogel Mepilex for now and may debride once demarcated, also try the Valtrex 1 g b.i.d. for 10 days and Mepilex to the buttock wound. Advised to stop smoking. MD JERRELL Almonte/ANNEL /[id number]
[2019-10-01] MEDS: PIPER-TAZ 3.375 GM 50 ML IV SCH ×4 (01:51→18:28)
[2019-10-01] MEDS: VANCOMYCIN 1GM/NS 250 ML 250 ML IV SCH ×2 (02:30→14:20)
[2019-10-01] MEDS ORDERED: MORPHINE SULFATE 2 MG/ML SYR 1ML ONE (06:24)
--- NOTE | 2019-10-01 07:00 | NUR ---
received bedside report. pt is alert resting in bed, no s/s of distress. respiratory is at the bedside. call light within reach and instructed pt to call RN for help
--- NOTE | 2019-10-01 07:17 | NUR ---
GAVE BEDSIDE SHIFT REPORT TO ONCOMING NURSE. CALL LIGHT WITHIN REACH. PATIENT IN BED.
[2019-10-01] MEDS: INSULIN REGULAR, HUMAN 100 UNIT/1 ML 3ML VIAL SQ SCH ×4 (07:30→21:10)
[2019-10-01] MEDS: TIOTROPIUM 18 MCG INH POWDER INH SCH (07:37)
[2019-10-01] MEDS: GABAPENTIN 300 MG CAP PO SCH ×3 (08:58→20:40)
[2019-10-01] MEDS: NICOTINE 21 MG/EA PATCH TOP SCH (08:58)
[2019-10-01] MEDS: METFORMIN HCL 500 MG TAB PO SCH ×2 (08:58→17:35)
[2019-10-01] MEDS: ASPIRIN 81 MG CHEW TAB PO SCH (08:58)
[2019-10-01] MEDS: VALACYCLOVIR HCL 500 MG TAB PO SCH ×2 (08:58→20:40)
[2019-10-01] MEDS: LORATADINE 10 MG TAB PO SCH (08:58)
[2019-10-01] MEDS: PANTOPRAZOLE SOD 40 MG TABEC PO SCH (08:58)
[2019-10-01] MEDS: DULOXETINE HCL 30 MG DELAYED RELEASE PO SCH (08:58)
[2019-10-01] MEDS: METOPROLOL SUCCINATE 25 MG TAB XL PO SCH ×2 (08:58→17:35)
--- NOTE | 2019-10-01 10:17 | NUR ---
SPOKE WITH PATIENT ABOUT ASSISTED ACUTE CARE HE SIGNED CHOICE FOR [facility]. FILED IN CHART AND WILL FAX CLINICALS TO ADMISSIONS.
--- NOTE | 2019-10-01 10:38 | Progress Note ---
DATE: SUBJECTIVE: The patient is seen and evaluated. Available labs and notes reviewed. The patient was seen twice. This is the second time the patient has been with the nurse in a room. Multiple wounds of the left lower extremity and sacral noted and reviewed. Wound Care MD note reviewed. REVIEW OF SYSTEMS: No nausea, vomiting, fever, chills, chest pain, shortness of breath, or headache. Pain is controlled. PHYSICAL EXAMINATION: VITAL SIGNS: Temperature 96.9, pulse is 84, respirations 16, blood pressure 124/56. GENERAL: Alert and oriented. Very pleasant. CV: S1, S2. CHEST: Equal expansion. Clear to auscultation. No acute distress. ABDOMEN: Soft and nontender. No distention. HEENT: Moist. No pallor. No JVD. EXTREMITIES: Multiple wounds of the left lower extremity and sacral wound noted, all on local care. The posterior thigh and posterior tib-fib area with some necrotic tissue. MEDICATIONS: Medication list reviewed. The patient is currently on valacyclovir, Zosyn and vancomycin. LABORATORY STUDIES: No new CBC or BMP from today. Previous labs from 09/30/2019 showed white count of 6.35, hemoglobin 10.5, and platelet of 243. Sodium 135, potassium 4.4, creatinine 0.99. RADIOLOGY STUDIES: No new radiology studies available. MICROBIOLOGY: Wound culture pending. Blood culture negative 24 hours. ASSESSMENT AND PLAN: 1. A 73-year-old gentleman, complicated past medical history status post fall and causing some skin tear and wounds of the sacral and left lower extremity. All wounds seen and evaluated. 2. Cellulitis, lower extremity and sacral. 3. Active tobacco smoker, 2 packs a day. 4. Chronic obstructive pulmonary disease. 5. Coronary artery disease. 6. Hypertension. 7. Peripheral vascular disease. 8. Diabetes. Medications as mentioned above. Continue with local care. Discussed with Dr. Delgadillo. Please refer to chart for more information. Dictated by Gerber Connelly PA-C (Al) Polina Delgadillo MD /MODL /[id number]
--- NOTE | 2019-10-01 12:19 | Progress Note ---
DATE: Internal Medicine Progress Note SUBJECTIVE: The patient is doing well. No significant complaint. PHYSICAL EXAMINATION: HEART: Showed regular rhythm. Normal S1 and S2 sound. LUNGS: Clear bilaterally. ABDOMEN: Soft. EXTREMITIES: Show dressing on the left leg, which he had open wounds. VITAL SIGNS: Blood pressure is 124/56, temperature 96.9, heart rate 84 per minute, respiratory rate 16 per minute, oxygen saturation 96%. LABORATORY DATA: Blood culture negative on Gram stain and wound culture pending. FINAL IMPRESSION: 1. Open wounds and cellulitis on multiple areas of the left leg. 2. History of chronic obstructive pulmonary disease. 3. History of peripheral vascular disease. 4. History of coronary artery disease. 5. Uncontrolled diabetes mellitus type 2 with diabetic neuropathy. PLAN OF TREATMENT: We are going to continue Zosyn 3.375 g IV q.6 hours, vancomycin 1 g IV twice a day, Tylenol 325 mg q.4 hours as needed for mild pain, albuterol inhalation q.6 hours as needed for shortness of breath, DuoNeb q.4 hours as needed for shortness of breath. I want to continue albuterol because he is taking DuoNeb, continue aspirin 81 mg daily, continue clonazepam 1 mg three times a day as needed for anxiety, continue Cymbalta 60 mg daily. Continue Flonase daily as needed for runny nose, gabapentin 600 mg three times a day for diabetic neuropathy. Continue monitoring blood sugar before meals and at bedtime. Continue diabetic diet. Continue lisinopril 10 mg daily. Continue Claritin 10 mg daily, metformin 500 mg twice a day, metoprolol 25 mg twice a day, morphine 4 mg IV q.4 hours as needed for severe pain. Nicoderm patch 21 mg daily, Zofran 4 mg IV q.4 hours as needed for nausea and vomiting, Protonix 40 mg daily, Zocor 40 mg daily, Spiriva 1 inhalation daily, tramadol 50 mg q.6 hours as needed for [id number]-ji-xzxtve pain, Desyrel 50 mg at bedtime, q.12 hours. The patient is going to be evaluated by LT[facility] for a possible transfer to [facility] due to the fact that he had several open wounds on the leg with severe infection and also necrotic areas. The patient is undergoing a course of antibiotics and wound care protocol. MD СЕРГЕЙ Benjamin/ANNEL /[id number]
[2019-10-01] MEDS: MORPHINE SULFATE INJ 4 MG/ML INJ 1ML IV PRN ×2 (12:27→20:59)
--- NOTE | 2019-10-01 14:30 | NUR ---
culture swab was collected during wound care from left lower leg ulcer. taken to lab by [facility]
--- NOTE | 2019-10-01 18:44 | Emergency Department Note ---
History of Present Illnes History of Present Illness Chief Complaint: Skin Rash or Abscess History of Present Illness This is a 73 year old male arrived for lower extremity wounds/ulcers- sent from PCPs office for further evaluation. Per patient has a fall a few days ago which has exacerbated his wounds. positive for COPD, coronary artery disease, peripheral vascular disease, diabetes mellitus with diabetic neuropathy Historian: Patient, Family Member Arrival Mode: Car Onset (how long ago): week(s) Radiation: non-radiation Onset quality: gradual Duration (how long): week(s) Timing of current episode: constant Progression: worsening Relieving factors: none Exacerbating factors: none Past Medical/Family History Physician Review I have reviewed the patient's past medical and family history. Any updates have been documented here. Past Medical History Recent Fever: No Clinical Suspicion of Infectio: Yes New/Unexplained Change in Ment: No Past Medical History: Hypertension, Diabetes, COPD, Hyperlipedemia Other Medical History: AAA Other Surgery: neck surgery bypass heart Social History Smoking Cessation: Current every day smoker Counseling Performed: No Alcohol Use: None Any Illegal Drug Use: No TB Exposure/Symptoms: No Physically hurt or threatened: No Family History Family history of heart diseas: Yes Other Last Tetanus: utd Any Pre-Existing Lines (PICC,: No Is patient up to date on immun: Yes Last Flu: utd Last Pneumovax: utd Review of Systems Review of Systems Constitutional: other (lower extremity wounds and sacral ulcer) Cardiovascular: no symptoms Respiratory: no symptoms Musculoskeletal: back pain Review of other systems All other systems reviewed and negative. Physical Exam Related Data Allergies: Coded Allergies: No Known Drug Allergies (Verified Allergy, Unknown, 06/30/09) Triage Vital Signs Vital Signs Date Time Temp Pulse Resp B/P (MAP) Pulse Ox O2 Delivery O2 Flow Rate FiO2 09/29/19 12:06 97.4 66 16 104/57 95 09/29/19 15:32 Room Air Vital signs reviewed: Yes Physical Exam CONSTITUTIONAL Constitutional: ill appearing HENT HENT: normocephalic, atraumatic, mucosae dry HENT L/R: left ext ear normal, right ext ear normal EYES Eyes: PERRL, conjunctivae normal NECK PULMONARY CARDIOVASCULAR Cardiovascular: regular rhythm, heart sounds normal, capillary refill normal, normal rate GASTROINTESTINAL Abdominal: soft, nontender, bowel sounds normal GENITOURINARY SKIN Skin: other MUSCULOSKELETAL Musculoskeletal: other (b/l lower extremity wounds L>R well circumscribed edges with shallow bases noted ) NEUROLOGICAL Neurological: alert PSYCHOLOGICAL Results Laboratory Result Diagram: 09/30/1952409/30/19524 Laboratory Laboratory Tests Test 10/01/19 15:37 10/01/19 11:30 10/01/19 07:17 Bedside Glucose 107 mg/dL (70-120) 95 mg/dL (70-120) 84 mg/dL (70-120) Lab results reviewed: Yes Critical Care Time Subsequent provider I assumed direction of critical care for this patient from another provider of my specialty. Assessment & Plan Assessment & Plan Problems: (1) Peripheral vascular disease (2) Cellulitis and abscess of buttock (3) Wound infection (4) Cellulitis and abscess of left lower extremity Depart Disposition: ADMITTED Last Vital Signs Date Time Temp Pulse Resp B/P (MAP) Pulse Ox O2 Delivery O2 Flow Rate FiO2 10/01/19 17:35 66 124/58 10/01/19 16:09 96.6 16 98 10/01/19 09:35 Room Air Home Meds Reported Medications Mometasone Furoate (NASONEX) 17 Gm Kirk[place], 2 SPRAY NA DAILY PRN for ALLERGY, SPRAY THERAPEUTICALLY SUBSTITUTED WITH FLONASE (FLUTICASONE) 09/29/19 Loratadine (LORATADINE) 10 Mg Tablet, 10 MG PO DAILY, #30 TAB 09/29/19 Duloxetine Hcl (CYMBALTA) 30 Mg Capsule.dr, 60 MG DAILY, #30 CAP 09/29/19 Gabapentin (NEURONTIN) 300 Mg Capsule, 600 MG PO TID, CAP 09/29/19 Metformin Hcl (METFORMIN HCL) 500 Mg Tablet, 500 MG PO BID, #60 TAB 09/29/19 Albuterol Sulf* (PROAIR HFA INHALER*) 8.5 Gm Inh, 90 MCG IH QID 09/29/19 Aspirin (ASPIR 81) 81 Mg Tablet.dr, 81 MG PO DAILY 09/29/19 Simvastatin (SIMVASTATIN) 40 Mg Tablet, 40 MG PO 2100, #30 TAB 09/29/19 Trazodone Hcl (TRAZODONE HCL) 50 Mg Tablet, 50 MG PO HS, #30 TAB 09/29/19 Tiotropium [place] (SPIRIVA) 18 Mcg Cap.w.dev, 18 MCG INH DAILY, BOTTLE 09/29/19 Umeclidinium Brm/Vilanterol Tr (Anoro Ellipta 62.5-25 Mcg INH) 1 Each Blst.w.dev, 1 INH INH DAILY 09/29/19 Tramadol Hcl* (ULTRAM 50MG*) 50 Mg Tab, 50 MG PO QID PRN for pain, TAB 09/29/19 Sildenafil Citrate* (VIAGRA*) 50 Mg Tab, 100 MG PO DAILY PRN for penal disfunction, TAB 09/29/19 Cyclobenzaprine Hcl (CYCLOBENZAPRINE HCL) 10 Mg Tablet, 5 MG PO TID, TAB 09/29/19 Clonazepam (KLONOPIN) 1 Mg Tablet, 1 MG PO TID PRN for ANXIETY 09/29/19 Metoprolol Succinate (METOPROLOL SUCCINATE) 50 Mg Tab.er.24h, 25 MG PO BID, MG 09/29/19 Lisinopril (LISINOPRIL) 10 Mg Tablet, 10 MG PO DAILY PRN for HIGH BLOOD PRESSURE, #30 TAB 09/29/19 Pantoprazole Sodium* (PROTONIX) 40 Mg Tablet.dr, 40 MG PO DAILY, TAB 09/29/19 Medications in the ED Ondansetron HCl 4 mg Q4H PRN IV NAUSEA AND VOMITING Last administered on 09/30/19at 22:04; Admin Dose 4 MG; Start 09/29/19 at 12:15; Stop 10/29/19 at 12:14 Morphine Sulfate 4 mg Q4H PRN IV SEVERE PAIN (7-10); Start 09/29/19 at 12:15; Stop 10/06/19 at 12:14; Status UNV Cefepime HCl 50 ml @ 100 mls/hr Q24H STAT IV Last administered on 09/29/19at 12:44; Admin Dose 100 MLS/HR; Start 09/29/19 at 12:14; Stop 09/29/19 at 12:43; Status NIEVES EUGENE, October 01, 2019 18:44
--- NOTE | 2019-10-01 19:42 | NUR ---
RECEIVED REPORT FROM PREVIOUS NURSE. CALL LIGHT WITHIN REACH. PATIENT IN BED. ROUNDING DONE
[2019-10-01] MEDS: SIMVASTATIN 40 MG TAB PO SCH (20:40)
[2019-10-01] MEDS: ONDANSETRON HCL INJ 2MG/ML 2ML 2 MG/ML VIAL IV PRN (20:59)
[2019-10-01] MEDS: TRAZODONE HCL 50 MG TAB PO SCH (21:55)
[2019-10-02] MEDS: PIPER-TAZ 3.375 GM 50 ML IV SCH ×4 (00:10→17:00)
[2019-10-02] MEDS: VANCOMYCIN 1GM/NS 250 ML 250 ML IV SCH ×2 (02:00→14:55)
[2019-10-02 04:00] VITALS: BP 112/63
[2019-10-02] MEDS: TIOTROPIUM 18 MCG INH POWDER INH SCH (06:30)
--- NOTE | 2019-10-02 07:08 | NUR ---
RECEIVED BEDSIDE SHIFT REPORT FROM OFF GOING NURSE. PATIENT IS RESTING IN BED. NO ACUTE DISTRESS NOTED. CALL LIGHT WITHIN REACH. BED IN THE LOWEST POSITION. BED ALARM ON.
[2019-10-02] MEDS: INSULIN REGULAR, HUMAN 100 UNIT/1 ML 3ML VIAL SQ SCH ×4 (07:30→21:00)
--- NOTE | 2019-10-02 07:31 | NUR ---
GAVE BEDSIDE SHIFT REPORT TO ONCOMING NURSE. CALL LIGHT WITHIN REACH. PATIENT IN BED.
[2019-10-02 07:41] VITALS: BP 115/61
[2019-10-02] MEDS: LISINOPRIL 10 MG TAB PO SCH (08:53)
[2019-10-02] MEDS: METFORMIN HCL 500 MG TAB PO SCH ×2 (08:53→17:00)
[2019-10-02] MEDS: LORATADINE 10 MG TAB PO SCH (08:53)
[2019-10-02] MEDS: GABAPENTIN 300 MG CAP PO SCH ×3 (08:53→21:00)
[2019-10-02] MEDS: ASPIRIN 81 MG CHEW TAB PO SCH (08:53)
[2019-10-02] MEDS: DULOXETINE HCL 30 MG DELAYED RELEASE PO SCH (08:53)
[2019-10-02] MEDS: PANTOPRAZOLE SOD 40 MG TABEC PO SCH (08:54)
[2019-10-02] MEDS: METOPROLOL SUCCINATE 25 MG TAB XL PO SCH ×2 (08:54→17:00)
[2019-10-02] MEDS: NICOTINE 21 MG/EA PATCH TOP SCH (08:54)
[2019-10-02 08:57] VITALS: BP 115/61
[2019-10-02] MEDS: VALACYCLOVIR HCL 500 MG TAB PO SCH (09:52)
[2019-10-02 11:20] VITALS: BP 104/55
--- NOTE | 2019-10-02 13:03 | Progress Note ---
DATE: SUBJECTIVE: The patient is seen and evaluated. Available labs and notes reviewed. No acute distress. REVIEW OF SYSTEMS: No nausea, vomiting, fever, chills, chest pain, shortness of breath. Pain is controlled. PHYSICAL EXAMINATION: VITAL SIGNS: Temperature 97.8, pulse is 68, respiration 18, blood pressure 115/61. GENERAL: Alert and oriented, no acute distress. CV: S1, S2. CHEST: Equal expansion. Clear to auscultation. No acute distress. ABDOMEN: Soft, nontender. No distention. HEENT: Moist. No pallor. No JVD. EXTREMITIES: Left lower extremity multiple wounds, all on local care seems to be drying up little bit. Also sacral wound noted. MEDICATIONS/ANTIBIOTICS: The patient is on valacyclovir, vancomycin IV and Zosyn. LABORATORY STUDIES: No new CBC or BMP. MICROBIOLOGY: Blood culture negative 48 hours. Wound culture showed gram-negative rods x3 and Staphylococcus aureus and Enterococcus species with identification and sensitivity in progress. RADIOLOGY STUDIES: No new radiology studies available. ASSESSMENT AND PLAN: 1. Status post fall and multiple skin tears/wounds including the sacral and left lower extremity. 2. Cellulitis. 3. Active tobacco smoker two pack a day. 4. Chronic obstructive pulmonary disease. 5. Hypertension. 6. Peripheral vascular disease. 7. Diabetes. 8. Hypertension. Continue with antibiotics, continue with wound care. Follow with the labs. Monitor patient clinically. Discussed with Dr. Delgadillo in details. No obvious acute finding. Further management of this patient is based on daily findings, laboratory and physical examination. Thank you for this dictation. Dictated by Gerber Connelly PA-C (Al) Polina Delgadillo MD /ANNEL /[id number]
[2019-10-02] MEDS: MORPHINE SULFATE INJ 4 MG/ML INJ 1ML IV PRN (14:11)
[2019-10-02] MEDS: ONDANSETRON HCL INJ 2MG/ML 2ML 2 MG/ML VIAL IV PRN (14:11)
[2019-10-02 15:21] VITALS: BP 126/56
--- NOTE | 2019-10-02 18:09 | Progress Note ---
DATE: Internal Medicine Progress Note SUBJECTIVE: The patient is doing well. PHYSICAL EXAMINATION: HEART: Showed regular rhythm. Normal S1, S2 sound. LUNGS: Clear bilaterally. ABDOMEN: Nondistended. EXTREMITIES: Show open wounds on the left leg, one of them in the back on the left thigh with necrotic area and also purulent discharge. LABORATORY DATA: On the CBC; white blood count 6.35, hemoglobin 10.5, hematocrit 31.6, platelet count of 243,000. On the potassium 4.4, chloride 100, CO2 28, BUN 14, creatinine 0.99, glucose 103, last blood sugar of 84, calcium 8.4, total bilirubin 0.3, AST 11, ALT 13, alkaline phosphatase 36, total protein 5.4, albumin 2.8. Vancomycin level is still pending. Urinalysis showed some bacteria and cloudiness. FINAL IMPRESSION: 1. Left leg wounds with cellulitis, one area of yellowish discharge with black eschar. 2. Chronic obstructive pulmonary disease. 3. History of coronary artery disease. 4. History of peripheral vascular disease. 5. Uncontrolled diabetes mellitus type 2 with diabetic neuropathy. 6. Tobacco use. PLAN OF TREATMENT: Continue Zosyn 3.375 g IV q.6 hours, vancomycin 1 g IV twice a day, Tylenol 325 mg q.4 hours as needed, albuterol Atrovent q.4 hours as needed for shortness of breath, aspirin 81 mg daily, clonazepam 1 mg three times a day as needed for anxiety, Cymbalta 60 mg daily, Flonase 1 to 2 inhalation daily, gabapentin 600 mg three times a day. Continue monitoring blood sugar before meals and at bedtime. Continue lisinopril 10 mg daily, Claritin 10 mg daily, metformin 500 mg twice a day, metoprolol 25 mg twice a day, morphine 4 mg IV q.4 hours as needed for severe pain, Nicoderm patch 21 mg daily, Zofran 4 mg IV q.4 hours as needed for nausea and vomiting, Protonix 40 mg daily, simvastatin 40 mg daily, Spiriva 1 inhalation daily, tramadol 50 mg q.6 hours as needed, trazodone 50 mg at bedtime. We are waiting for the transfer to [facility] for continuation of IV antibiotic and wound care. We are going to continue Doppler also to see if he has peripheral vascular disease. Wound care will continue. MD СЕРГЕЙ Benjamin/ANNEL /[id number]
--- NOTE | 2019-10-02 18:54 | NUR ---
BEDSIDE SHIFT REPORT GIVEN TO ONCOMING NURSE. PATIENT IS RESTING IN BED. NO ACUTE DISTRESS NOTED. CALL LIGHT WITHIN REACH. BED IN THE LOWEST POSITION.
[2019-10-02 20:00] VITALS: BP 128/70
--- NOTE | 2019-10-02 20:00 | NUR ---
Received change of shift report from AM nurse. Walking rounds completed.
[2019-10-02] MEDS: TRAZODONE HCL 50 MG TAB PO SCH (21:00)
[2019-10-02] MEDS: SIMVASTATIN 40 MG TAB PO SCH (21:00)
[2019-10-03] VITALS (7 sets, daily range): BP systolic 114–147; BP diastolic 57–79
[2019-10-03] MEDS: VANCOMYCIN 1GM/NS 250 ML 250 ML IV SCH ×2 (02:00→14:22)
--- NOTE | 2019-10-03 02:42 | NUR ---
IV leaking. Resited IV to left hand x1 stick. Patient tolerated well.
[2019-10-03] MEDS: PIPER-TAZ 3.375 GM 50 ML IV SCH ×5 (05:17→23:43)
[2019-10-03] MEDS: MORPHINE SULFATE INJ 4 MG/ML INJ 1ML IV PRN (05:22)
[2019-10-03] MEDS: ONDANSETRON HCL INJ 2MG/ML 2ML 2 MG/ML VIAL IV PRN (05:23)
--- NOTE | 2019-10-03 05:35 | NUR ---
Patient resting quitly at this time.
[2019-10-03] MEDS: TIOTROPIUM 18 MCG INH POWDER INH SCH (07:10)
[2019-10-03] MEDS: INSULIN REGULAR, HUMAN 100 UNIT/1 ML 3ML VIAL SQ SCH ×4 (07:30→20:25)
--- NOTE | 2019-10-03 07:41 | NUR ---
PATIENT SITTING AT BED SIDE WITH NO NO DISTRESS. NOTED WITH BLOOD SUGAR OF 57. NO S/S OF HYPOGLYCEMIA, PATIENT STATED "I AM FINE". ORANGE JUICE OFFERED AND WELL TOLERATED. BLOOD SUGAR RECHECKED WITH THE READING OF 96. WILL CLOSELY MONITOR.
[2019-10-03] MEDS: METFORMIN HCL 500 MG TAB PO SCH (08:40)
[2019-10-03] MEDS: LISINOPRIL 10 MG TAB PO SCH (09:00)
[2019-10-03] MEDS: DULOXETINE HCL 30 MG DELAYED RELEASE PO SCH (09:09)
[2019-10-03] MEDS: ASPIRIN 81 MG CHEW TAB PO SCH (09:09)
[2019-10-03] MEDS: LORATADINE 10 MG TAB PO SCH (09:09)
[2019-10-03] MEDS: PANTOPRAZOLE SOD 40 MG TABEC PO SCH (09:09)
[2019-10-03] MEDS: GABAPENTIN 300 MG CAP PO SCH ×3 (09:09→20:56)
[2019-10-03] MEDS: NICOTINE 21 MG/EA PATCH TOP SCH (09:10)
[2019-10-03] MEDS: METOPROLOL SUCCINATE 25 MG TAB XL PO SCH ×2 (09:10→17:32)
--- NOTE | 2019-10-03 11:40 | NUR ---
PATIENT RESTING IN BED WITH NO S/S OF DISTRESS. DRESSING INTACT TO LEFT LEG. BED IN LOWER POSITION, CALL LIGHT AT REACH.
[2019-10-03] MEDS ORDERED: SODIUM CHLORIDE 0.9% 1000ML 1,000 ML IV SCH (12:30)
--- NOTE | 2019-10-03 16:51 | NUR ---
PATIENT OFF UNIT TO RADIOLOGY.
--- NOTE | 2019-10-03 17:30 | NUR ---
PATIENT BACK TO UNIT FROM RADIOLOGY. OUT OF BED TO CHAIR EATING DINNER. CALL LIGHT AT REACH.
[2019-10-03] MEDS ORDERED: SODIUM CHLORIDE 0.9% 100 ML ONE (18:55)
[2019-10-03] MEDS ORDERED: IOPAMIDOL 370 MG/ML 200 ML INFUS..BTL INJ ONE (18:55)
--- NOTE | 2019-10-03 19:08 | Diagnostic Imaging Report ---
EXAMINATION: CHEST 2 VIEWS INDICATION: ^COPD ^[id number] ^1821 ^Y COMPARISON: 06/28/2009 FINDINGS: PA and lateral views TUBES and LINES: None. LUNGS: Lungs are well inflated. Lungs are clear. There is no evidence of pneumonia or pulmonary edema. PLEURA: No pleural effusion or pneumothorax. HEART AND MEDIASTINUM: The cardiomediastinal silhouette is unremarkable. BONES AND SOFT TISSUES: No acute osseous lesion. From calcification in the left upper quadrant corresponds with a calcified cyst in the spleen on CT from 10/03/2019. UPPER ABDOMEN: No free air under the diaphragm. IMPRESSION: No acute thoracic abnormality. Signed by: Dr. Mila Colunga M.D. on 10/03/2019 7:04 PM
--- NOTE | 2019-10-03 19:15 | NUR ---
patient received awake, alert, sitting up in bed. no c/o pain noted. pm assessment complete. patient instructed to call for assistance when needed.
--- NOTE | 2019-10-03 19:25 | NUR ---
BED SIDE REPORT GIVEN TO ON COMING NURSE.
--- NOTE | 2019-10-03 19:48 | Progress Note ---
DATE: Internal Medicine Progress Note SUBJECTIVE: The patient is doing well and to be confused today. PHYSICAL EXAMINATION: VITAL SIGNS: Blood pressure 122/70, temperature 97.4, heart rate 61 per minute, respiratory rate 20 per minute, pulse oximetry 98% HEART: Showed regular rhythm. Normal S1, S2 sound. LUNGS: Clear bilaterally. EXTREMITIES: Showed the areas of open wound on the left thigh on the left leg. LABORATORY DATA: On the CBC, white blood count 6.35, hemoglobin 10.5, hematocrit 31.6, platelet count of 243,000. Last blood sugar 103. The last complete metabolic panel shows sodium 135, potassium 4.4, chloride 100, CO2 28, BUN 14, creatinine 0.9, GFR of 60, glucose 103, last one 109, calcium 8.4. Total bilirubin 0.3, AST 11, ALT 13, alkaline phosphatase 36, total protein 5.4, albumin 2.8, globulin 2.6. IMPRESSION: 1. Left leg wound with cellulitis. 2. Chronic obstructive pulmonary disease. 3. Coronary artery disease. 4. Severe peripheral vascular disease. 5. Uncontrolled diabetes mellitus type 2 with diabetic neuropathy. TREATMENT FOR THE PATIENT: Dr. Michael will see the patient from the Cardiology point of view because of severe peripheral vascular disease. We are going to discontinue normal saline. Continue Zosyn 3.375 g IV q.6 hours. Continue vancomycin 1 g IV twice a day. Continue Tylenol 325 mg q.4 hours as needed for mild pain, albuterol, Atrovent q.4 hours as needed for shortness of breath, aspirin 81 mg daily, clonazepam 1 mg three times a day as needed for anxiety, D50 IV push as needed for hypoglycemia, Cymbalta 60 mg daily, Flonase 1 or 2 spray intranasally daily as needed for allergies, gabapentin 600 mg three times a day. Continue monitoring blood sugar before meal and at bedtime. Continue lisinopril 2.5 mg daily. Continue Claritin 10 mg daily. Continue metoprolol 25 mg twice a day, morphine 4 mg IV q.4 hours as needed for severe pain, Nicoderm patch 21 mg daily, Zofran 4 mg IV q.4 hours as needed for nausea and vomiting, Protonix 40 mg daily, Zocor 40 mg daily, Spiriva 1 inhalation daily, tramadol 50 mg q.6 hours as needed, trazodone 50 mg at bedtime. We are going to discontinue the morphine. The patient does not have any severe pain to certify that right now. We can give tramadol as needed for pain. Dr. Michael is going to see him from the Cardiology point of view. MD СЕРГЕЙ Benjamin/ANNEL /[id number]
--- NOTE | 2019-10-03 20:17 | Diagnostic Imaging Report ---
EXAM: CTA Abdomen and Pelvis and Lower Extremity, WITH Contrast. INDICATION: Peripheral vascular disease COMPARISON: None. TECHNIQUE: Multidetector [address] scanning with 2 mm cuts of the abdomen, pelvis and bilateral thighs after administration of 100 cc IV of Omnipaque 350. Coronal and sagittal multiplanar, MIP thin and thick cuts, and 3-D volume-rendering reformations were obtained. In addition, delay images of the lower extremities below the knee were obtained. IV CONTRAST: 150 mL of Omnipaque 350 ORAL CONTRAST: None COMPLICATIONS: None RADIATION DOSE: Total DLP: 844 mGy*cm Estimated effective dose: (DLP x 0.015 x size factor) mSv CTDIvol has been reviewed. It is below the limits set by the Radiation Protocol Committee (RPC). FINDINGS: Potential study limitations: None. VASCULAR WITH ADVANCED 3-D OFF-LINE POSTPROCESSING: The abdominal aorta is normal in course, caliber, and contour. There is no acute aortic pathology. Scattered mixed atherosclerosis of the robinson abdominal aorta without hemodynamically significant stenosis. The celiac axis and SMA are patent. The ZULMA is not distinctly identified and may be chronically occluded. There are single renal arteries bilaterally, both of which appear patent. 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 The bypass grafts are widely patent. The internal iliac arteries are patent. RIGHT LOWER EXTREMITY: Right common femoral, profundus femoral, superficial femoral, and popliteal arteries are patent. Scattered calcified atherosclerosis of the common femoral artery and superficial femoral artery without hemodynamically significant stenosis. There is a patent trifurcation with both anterior and posterior tibial arteries supply the foot. LEFT LOWER EXTREMITY: Left common femoral, profundus femoral, superficial femoral, and popliteal arteries are patent. Scattered calcified atherosclerosis of the common femoral artery and superficial femoral artery without hemodynamically significant stenosis. There is a patent trifurcation with both anterior and posterior tibial arteries supply the foot. NON-VASCULAR FINDINGS: LOWER CHEST: Unremarkable. ABDOMEN: The liver and pancreas appear normal. Calcified gallstone. Peripherally calcified splenic cyst. Splenic embolization coils. The adrenal glands appear normal. Both kidneys are normal in size, shape, and density. There is no abnormal mass or hydronephrosis. 3.8 cm partially calcified heterogeneous nonaggressive lesion adherent to the left flank musculature (image 26), possibly remote fat necrosis. PELVIS: There is no significant retroperitoneal adenopathy. No free fluid or free air within the abdomen or pelvis. Small bilateral fat-containing inguinal hernias. The bowel appears unremarkable. The urinary bladder appears normal. BONES: No acute osseous abnormalities. IMPRESSION: 1. 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 The bypass grafts are widely patent. 2. Scattered atherosclerotic disease of the abdominal aorta, common femoral arteries, and superficial femoral arteries without hemodynamically significant stenosis. Three-vessel runoff to the feet bilaterally. Signed by: Federico Duenas MD on 10/03/2019 8:13 PM
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
[2019-10-03] MEDS: TRAZODONE HCL 50 MG TAB PO SCH (20:56)
[2019-10-03] MEDS: SIMVASTATIN 40 MG TAB PO SCH (20:56)
[2019-10-04] VITALS (8 sets, daily range): BP systolic 101–136; BP diastolic 50–75
[2019-10-04] MEDS: VANCOMYCIN 1GM/NS 250 ML 250 ML IV SCH ×2 (01:40→14:37)
--- NOTE | 2019-10-04 04:00 | NUR ---
patient incontinent of urine at this time. patient offered a shower but refuses it. complete bed change done at this time.
[2019-10-04] MEDS: PIPER-TAZ 3.375 GM 50 ML IV SCH ×3 (05:51→18:19)
--- NOTE | 2019-10-04 06:00 | NUR ---
new iv # 22 gauge placed to right wrist x 1 stick. previous iv x 2 d/c'd due to leakage at both iv sites.
[2019-10-04 06:40] LABS: BASOPHILS % 0.8 % (0.0-1.0); EOSINOPHILS # (AUTO) 0.2 (0.0-0.4); EOSINOPHILS % 4.5 % (0.0-6.0); HEMATOCRIT 31.7 % (38.2-49.6); HEMOGLOBIN 10.1 g/dL (14.0-18.0); LYMPHOCYTES # (AUTO) 1.1 (1.0-3.2); LYMPHOCYTES % 20.6 % (18.0-39.1); MEAN CORPUSCULAR HEMOGLOBIN 31.5 pg (28-32); MEAN CORPUSCULAR HGB CONC 31.9 g/dL (31-35); MEAN CORPUSCULAR VOLUME 98.8 fL (81-99); MONOCYTES # (AUTO) 0.4 (0.2-0.8); MONOCYTES % 7.8 % (4.4-11.3); NEUTROPHILS # (AUTO) 3.5 (2.1-6.9); NEUTROPHILS % 66.1 % (38.7-80.0); PLATELET COUNT 262 x10e3/uL (140-360); RED BLOOD COUNT 3.21 x10e6/uL (4.3-5.7); RED CELL DISTRIBUTION WIDTH 11.9 % (11.7-14.4)
[2019-10-04 06:57] LABS: ALANINE AMINOTRANSFERASE 11 IU/L (0-55); ALBUMIN 2.8 g/dL (3.5-5.0); ALKALINE PHOSPHATASE 34 IU/L (40-150); ANION GAP 13.1 mmol/L (8-16); BLOOD UREA NITROGEN 12 mg/dL (7-26); BUN/CREATININE RATIO 16 (6-25); CARBON DIOXIDE 27 mmol/L (22-29); CHLORIDE 106 mmol/L (98-107); CHOL/HDL RATIO 2.4 (3.9-4.7); CHOLESTEROL 100 MD/DL (0-199); CREATININE, SERUM 0.75 mg/dL (0.72-1.25); EST GLOMERULAR FILTRATION RATE > 60 ML/MIN (60-); GLUCOSE 93 mg/dL (74-118); HDL CHOLESTEROL 41 MG/DL (40-60); LDL CHOLESTEROL 50 MG/DL (60-130); POTASSIUM 4.1 mmol/L (3.5-5.1); SODIUM 142 mmol/L (136-145); TRIGLYCERIDES 46 MG/DL (0-149)
--- NOTE | 2019-10-04 07:18 | NUR ---
PATIENT IN BED RESTING WITH EYES CLOSED, NO DISTRESS NOTED, DRESSING INTACT TO LEFT LEG. BED IN LOWER POSITION, CALL LIGHT AT REACH.
[2019-10-04] MEDS: TIOTROPIUM 18 MCG INH POWDER INH SCH (07:30)
[2019-10-04] MEDS: INSULIN REGULAR, HUMAN 100 UNIT/1 ML 3ML VIAL SQ SCH ×4 (07:30→20:57)
[2019-10-04] MEDS: METOPROLOL SUCCINATE 25 MG TAB XL PO SCH ×2 (09:00→17:00)
[2019-10-04] MEDS: LISINOPRIL 2.5 MG TAB PO SCH (09:00)
[2019-10-04] MEDS: PANTOPRAZOLE SOD 40 MG TABEC PO SCH (09:19)
[2019-10-04] MEDS: NICOTINE 21 MG/EA PATCH TOP SCH (09:19)
[2019-10-04] MEDS: GABAPENTIN 300 MG CAP PO SCH ×3 (09:19→20:59)
[2019-10-04] MEDS: ASPIRIN 81 MG CHEW TAB PO SCH (09:19)
[2019-10-04] MEDS: LORATADINE 10 MG TAB PO SCH (09:19)
[2019-10-04] MEDS: DULOXETINE HCL 30 MG DELAYED RELEASE PO SCH (09:19)
--- NOTE | 2019-10-04 11:14 | NUR ---
BED SIDE ECHO COMPLETED. PATIENT OUT OF BED TO CHAIR WATCHING TV. CALL LIGHT AT REACH.
--- NOTE | 2019-10-04 11:50 | Progress Note ---
DATE: Internal Medicine Progress Note SUBJECTIVE: The patient is doing well. He is sleeping. PHYSICAL EXAMINATION: HEART: Showed regular rhythm. Normal S1, S2 sound. LUNGS: Clear bilaterally. EXTREMITIES: Showed open wounds on the left thigh and left leg. VITAL SIGNS: Blood pressure 120/50, heart rate is 54 per minute, respiratory rate 18 per minute, temperature 98 degrees, and pulse oximetry 99%. LABORATORY DATA: On the CBC; white blood count 5.29, hemoglobin 10.1, hematocrit 31.7, and platelet count 262,000. On the BMP; sodium 142, potassium 4.1, chloride 106, CO2 27, BUN 12, creatinine 0.75, glucose 93, calcium 9.0, total bilirubin 0.2, AST 15, ALT 11, alkaline phosphatase 34, total protein 5.7, albumin 2.8, globulin 2.9, triglyceride 46, cholesterol 100, LDL 50, HDL 41, TSH 0.490. Vancomycin trough 14.3. Urinalysis negative except for some bacteria and hyaline cast. IMPRESSION: 1. Left leg wound with cellulitis. 2. Severe peripheral vascular disease. 3. Chronic obstructive pulmonary disease. 4. Coronary artery disease. 5. Uncontrolled diabetes mellitus type 2 with diabetic neuropathy. PLAN OF TREATMENT: Continue wound care. Continue IV antibiotic, which include: 1. Zosyn 3.375 g IV q.6 hours. 2. Vancomycin 1 g IV twice a day. 3. Tylenol 325 mg q.4 hours as needed for pain or fever. 4. Albuterol and Atrovent q.4 hours as needed for shortness of breath. 5. Aspirin 81 mg daily. 6. Clonazepam 1 mg three times a day as needed for anxiety. 7. Cymbalta 60 mg daily. 8. Flonase 1 inhalation daily as needed for allergies. 9. Gabapentin 600 mg three times a day. 10. Continue monitoring blood sugar before meals and at bedtime. 11. Continue lisinopril 2.5 mg daily. 12. Continue Claritin 10 mg daily. 13. Metformin has been placed on hold. 14. Continue Toprol 25 mg twice a day. 15. Continue with nicotine patch 21 mg daily. 16. Zofran 4 mg IV q.4 hours as needed for nausea and vomiting. 17. Protonix 40 mg daily. 18. Zocor 40 mg daily. 19. Spiriva 1 inhalation daily. 20. Tramadol 50 mg q.6 hours as needed for pain. 21. Trazodone 50 mg at bedtime. The patient is going to go for coronary angiogram. Dr. Michael has been consulted from the Cardiology point of view because of the severe peripheral vascular disease. Continue wound care. Continue antibiotics. Awaiting for the approval from insurance company to go to a Long-Term [facility]. MD СЕРГЕЙ Benjamin/ANNEL /[id number]
[2019-10-04] MEDS: TRAMADOL HCL 50 MG TAB PO PRN (14:30)
--- NOTE | 2019-10-04 15:43 | NUR ---
DRESSING CHANGED TO LEFT LEG WOUNDS ORDERED. PATIENT IN BED WITH CALL LIGHT AT REACH.
--- NOTE | 2019-10-04 17:38 | Progress Note ---
DATE: SUBJECTIVE: Mr. Fall remained in the medical floor. There is no new complaint. REVIEW OF SYSTEMS: HEENT: Negative. PULMONARY: Negative. CARDIAC: Negative. PHYSICAL EXAMINATION: GENERAL: He is currently alert, oriented, does not seem in acute distress. VITAL SIGNS: Stable, afebrile. HEENT: He is not icteric. NECK: Supple. CHEST: Clear. HEART: S1, S2. No S3, S4 or murmur. ABDOMEN: Soft. Bowel sounds no tenderness. EXTREMITIES: No edema. The leg seems to be getting better. The redness has improvement. IMPRESSION: 1. Cellulitis of the leg, improving. 2. Peripheral vascular disease. 3. Chronic obstructive pulmonary disease. 4. Coronary artery disease. 5. Diabetes mellitus with neuropathy, stable from Infectious Disease point of view. Can continue IV antibiotic. Discharge planning per Internal Medicine. Further recommendations to follow. MD MEGHAN Van/ANNEL /[id number]
[2019-10-04] MEDS: SIMVASTATIN 40 MG TAB PO SCH (20:59)
[2019-10-04] MEDS: TRAZODONE HCL 50 MG TAB PO SCH (20:59)
--- NOTE | 2019-10-04 21:37 | Progress Note ---
DATE: 10/04/2019 CHIEF COMPLAINT: Localized left leg pain, back pain, and weakness. REVIEW OF SYSTEMS: No chest pain. No shortness of breath. Easy fatigability. No fever. No chills. CURRENT MEDICATIONS: Zosyn, vancomycin, aspirin, albuterol, Klonopin, Cymbalta, gabapentin 600 mg twice a day, insulin sliding scale, lisinopril 2.5 mg a day, metoprolol 25 mg twice a day, Protonix 40 mg a day, and Zocor 40 mg a day. LABORATORY DATA: White blood cell count of 5.2, hemoglobin of 10.1, hematocrit 31%, platelet count of 262. Sodium of 142, potassium of 4.1, BUN of 12 and creatinine of 0.8. Lipid profile showed a triglyceride of 46, cholesterol of 100, LDL of 50, HDL of 41, TSH of 0.49. PHYSICAL EXAMINATION: GENERAL: The patient is thin and chronically ill. VITAL SIGNS: Temperature of 97.6, blood pressure 130/50, heart rate of 65, pulse oximetry of 98%. HEENT: Pupils are reactive. NECK: Bilateral carotid bruit. No thyromegaly. CHEST: Decreased air entry, increased expiratory phase consistent with COPD. HEART: PMI 5th left intercostal space. Normal first and second heart sounds. ABDOMEN: Soft. Scar of previous abdominal vascular surgery. EXTREMITIES: Dressing over the left thigh and buttocks bilaterally. The left foreleg with redness. X-RAYS: Chest x-ray showed no acute changes. CT angiogram showed celiac and SMA are patent. Inferior mesenteric artery is not seen, possibly occluded. Patent renal arteries, bilateral iliac occlusion. There is aortobifemoral bypass seems to be patent and there is no severe SFA as per CT angiogram report. There are calcified gallstones, calcified splenic cyst, splenic embolization coils in place. IMPRESSION AND PLAN: 1. Major trauma and ulcer of both lower extremities. 2. Status post aortobifemoral bypass. 3. Peripheral vascular disease with abnormal Doppler, but CT angiogram did not substantiate this finding. 4. Severe cellulitis and tissue loss of the left lower extremity following trauma. 5. Chronic obstructive pulmonary disease. 6. Coronary artery disease. 7. Diabetes mellitus. 8. Heavy smoker. Cardiac-wilder, we would recommend observation for the time being and medical therapy. If no healing, then we will entertain doing other steps. MD STARR York/ANNEL /[id number]
[2019-10-05] VITALS (8 sets, daily range): BP systolic 113–159; BP diastolic 57–104
--- NOTE | 2019-10-05 00:53 | NUR ---
vancomycin trough drawn and sent to lab at this time.
[2019-10-05] MEDS: VANCOMYCIN 1GM/NS 250 ML 250 ML IV SCH ×2 (02:00→14:42)
--- NOTE | 2019-10-05 05:50 | NUR ---
Patient a bath at this time but patient refuses.
[2019-10-05] MEDS: PIPER-TAZ 3.375 GM 50 ML IV SCH ×2 (05:51)
--- NOTE | 2019-10-05 07:17 | NUR ---
PATIENT IN BED RESTING WITH NO S/S OF DISCOMFORT. URINAL EMPTIED AND CLEANSED. BED IN LOWER POSITION, CALL LIGHT AT REACH.
[2019-10-05] MEDS: INSULIN REGULAR, HUMAN 100 UNIT/1 ML 3ML VIAL SQ SCH ×4 (07:30→21:00)
[2019-10-05] MEDS: ALBUTEROL/IPRATROPIUM 3 ML NEB NEB PRN (07:59)
[2019-10-05] MEDS: TIOTROPIUM 18 MCG INH POWDER INH SCH (07:59)
[2019-10-05] MEDS: LISINOPRIL 2.5 MG TAB PO SCH (09:00)
[2019-10-05] MEDS: NICOTINE 21 MG/EA PATCH TOP SCH (09:00)
[2019-10-05] MEDS: GABAPENTIN 300 MG CAP PO SCH ×3 (09:22→21:10)
[2019-10-05] MEDS: PANTOPRAZOLE SOD 40 MG TABEC PO SCH (09:22)
[2019-10-05] MEDS: LORATADINE 10 MG TAB PO SCH (09:22)
[2019-10-05] MEDS: ASPIRIN 81 MG CHEW TAB PO SCH (09:22)
[2019-10-05] MEDS: DULOXETINE HCL 30 MG DELAYED RELEASE PO SCH (09:22)
[2019-10-05] MEDS: METOPROLOL SUCCINATE 25 MG TAB XL PO SCH ×2 (09:23→17:19)
--- NOTE | 2019-10-05 09:57 | NUR ---
UPDATED CLINICALS FAXED TO [facility] PER REQUEST FROM JAIR Hanley
--- NOTE | 2019-10-05 11:23 | NUR ---
TELEMETRY DISCONTINUED ORDERED. PATIENT IN BED WATCHING TV. CALL LIGHT AT REACH.
--- NOTE | 2019-10-05 11:29 | Progress Note ---
DATE: Internal Medicine Progress Note SUBJECTIVE: The patient is doing well. PHYSICAL EXAMINATION: HEART: Showed regular rhythm. Normal S1 and S2 sound. LUNGS: Clear bilaterally. ABDOMEN: Soft. EXTREMITIES: He has dressing on the left leg. VITAL SIGNS: Blood pressure 128/77, temperature 97 degrees, heart rate 65 per minute, respiratory rate is 20 per minute, and oxygen saturation 97%. LABORATORY DATA: Blood sugar is 94. On the CBC; white blood count 5.29, hemoglobin 10.1, hematocrit 31.7, and platelet count 262,000. Vancomycin trough 18.6. MICROBIOLOGY: Blood culture negative, but the wound culture shows Staphylococcus aureus, Enterococcus, gram-negative rods, Klebsiella pneumoniae, and Stenotrophomonas maltophilia. FINAL IMPRESSION: 1. Several wounds on the left leg with infection and cellulitis. 2. Hypertension. 3. Coronary artery disease. 4. Peripheral vascular disease. 5. Uncontrolled diabetes mellitus type 2 with diabetic neuropathy. 6. Chronic obstructive pulmonary disease. PLAN OF TREATMENT: The patient is going to get an angiogram and angioplasty because of the superficial femoral artery stenosis that he has. This is going to be going to be done by Dr. Michael, Cardiology. Continue Zosyn 3.375 g IV q.6 hours, vancomycin 1 g IV twice a day, Tylenol 325 mg q.4 hours as needed for mild pain or fever, albuterol/Atrovent q.4 hours as needed for shortness of breath, aspirin 81 mg daily, clonazepam 1 mg 3 times a day as needed for anxiety, Cymbalta 60 mg daily, Flonase one inhalation daily as needed for allergies, and gabapentin 600 mg 3 times a day. Continue monitoring blood sugar before meals and at bedtime. Continue lisinopril 2.5 mg daily, Claritin 10 mg daily, metoprolol 25 mg twice a day, Nicoderm 21 mg patch daily, Zofran 4 mg IV q.4 hours as needed for nausea and vomiting, Protonix 40 mg daily, Zocor 40 mg daily, Spiriva one inhalation daily, tramadol 50 mg q.6 hours as needed for pain, and trazodone 50 mg at bedtime. Continue with current IV antibiotic therapy. Continue wound care. We are still waiting for insurance approval for him to go to a long-term care hospital. MD СЕРГЕЙ Benjamin/ANNEL /[id number]
--- NOTE | 2019-10-05 12:24 | Progress Note ---
DATE: SUBJECTIVE: The patient is seen and evaluated. Available labs and notes reviewed. Discussed with staff. REVIEW OF SYSTEMS: No nausea, vomiting, fever, chills, chest pain, shortness of breath, headache, dysuria, polyuria, rash. OBJECTIVE: VITAL SIGNS: Temperature 97, pulse is 65, respiration 18, and blood pressure 128/77. MEDICATIONS/ANTIBIOTICS: Medication list reviewed. As far as Infectious Disease point of view, the patient is on vancomycin IV and Zosyn. Discussed with the nurse in regard to antibiotics and their dosages. LABORATORY STUDIES: No new CBC or BMP from today. Toxicology; vancomycin trough was 18.6 around 1 o'clock in the morning. MICROBIOLOGY STUDIES: Blood culture 09/29/2019 is negative. Wound culture 10/01/2019 showed stenotrophomonas, Staphylococcus which is MSSA and Enterococcus faecalis, which is not VRE. RADIOLOGY STUDIES: No new radiology studies available. PHYSICAL EXAMINATION: GENERAL: Alert and oriented, in no acute distress. CV: S1, S2. CHEST: Equal expansion. Clear to auscultation. No acute distress. ABDOMEN: Soft, nontender. No distention. HEENT: Moist. No pallor. No JVD. EXTREMITIES: Multiple wounds bilateral lower extremities, left worse than right. Also has some wounds under sacral area, which are all on local care, some with necrotic tissue. ASSESSMENT AND PLAN: 1. Cellulitis of the lower extremities. 2. Peripheral vascular disease. 3. Chronic obstructive pulmonary disease. 4. Coronary artery disease. 5. Diabetes mellitus. 6. Diabetic neuropathy. 7. Multidrug resistant wound culture. 8. Currently on vancomycin IV and Zosyn. Discussed with the nurse and discussed with the pharmacy. Please refer to chart for more information. Continue with the wound care. We will stop Zosyn and start meropenem. Continue with vancomycin. Further management of this patient is based on daily findings on laboratory and physical examination. MD MEGHAN Van/ANNEL /[id number]
[2019-10-05] MEDS: MEROPENEM 500MG/ NS 50ML 50 ML IV SCH ×2 (14:07→22:24)
--- NOTE | 2019-10-05 15:25 | NUR ---
MD IN TO SEE PATIENT, NEW ORDER RECEIVED. IN BED WITH CALL LIGHT AT REACH.
[2019-10-05] MEDS ORDERED: ONDANSETRON HCL 4 MG ORAL DISINTEGRATING TAB PO PRN (16:00)
--- NOTE | 2019-10-05 17:23 | NUR ---
Nutrition Intervention Note RD Recommendation(s) for Physician: - Continue current diet - Recommend Scottie 1 packet BID for wound healing - Recommend Vitamin C 500 mg BID and Zinc Sulfate 220 mg once daily for wound healing Plan of Care: RD following, monitoring for tolerance and adequacy. Supplement and vit/min rec's. Nutrition reason for involvement: LOS RD Assessment 10/04: 73 YOM admitted for cellulitis and abscess of buttock and L leg, seen today for LOS. 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 Pt denies wt loss and reports UBW of 150#. Pt denies any N/V/C/D. Pt with no questions or concerns at time of visit. RD rec's for Scottie and vit C as well as zinc sulfate discussed with RN at bedside and rec's placed in chart for MD. Chart reviewed. Will continue to monitor. Principal Problems/Diagnoses: cellulitis and abscess of buttock, cellulitis of L leg PMH: DM, PVD. advanced lung disease, COPD, CAD, abdominal vascular surgery, diabetic neuropathy GI: LBM 10/04 Skin: vascular wounds 2/2 PVD- calf wound, sacral wound Labs: 10/04: Na 142, k 4.1, BUN 12, Cr 0.75, Gluc 93, Ca 9, POC Gluc 99-132 Meds: abx, gabapentin, protonix, zocor, insulin, zofran Ht: 70 in Wt: 154 lb BMI: 22.1 kg/m2 IBW: 166 lb Malnutrition Evaluation (10/05/19) The patient does not meet criteria for a specified degree of malnutrition at this time. Will re-evaluate at follow-up as appropriate. Energy intake: Good po intake Weight loss: No wt loss Fat loss: none, chest well developed Muscle loss: none, shoulder round Supporting Evidence: Fluid accumulation: none Functional Status: no changes Nutrition Prescription (Diet Order): 1800 ADA Estimated Nutritional Needs: 2834-2255 calories/day (25-30 kcal/kg CBW) 154# 70-105 g protein/day (1-1.5 g pro/kg CBW) Diet Adequacy: Meeting calorie needs, Meeting protein needs Diet Tolerance: Diet Education Needs Assessment: Diet education not indicated at this time. Nutrition Care Level: low Nutrition Diagnosis: Increased nutrient needs (protein, vitamin, mineral) related to skin integrity as evidenced by multiple vascular ulcers present on admit. Goal: Patient will meet 75-100% of estimated needs by follow up Progress: N/A Interventions: -CHO modified diet, Commercial beverage, Recommended Modifications, Multivitamin/mineral supplement therapy, Collaboration with other providers Monitoring/Evaluation: -Total energy intake, Total protein intake, Modified diet, Liquid supplement Signed: Kitty Go RD, [place], [facility]
--- NOTE | 2019-10-05 19:20 | NUR ---
BEDSIDE SHIFT REPORT RECEIVED FROM DAY RN. PT IS ALERT AND ORIENTED X3. RESPIRATIONS ARE EVEN AND UNLABORED. PT HAS CELLULITIS TO LEFT LEG- DRESSING INTACT. 22 G RT WRIST SL. PT DENIES PAIN. PT VOIDING MA URINAL.PT IN SEMI-FOWLERS POSITION WATCHING TV. DENIES PAIN. CALL LIGHT WITHIN REACH. bED IN LOW POSITION.
[2019-10-05] MEDS: SIMVASTATIN 40 MG TAB PO SCH (21:09)
[2019-10-05] MEDS: TRAZODONE HCL 50 MG TAB PO SCH (21:10)
[2019-10-06] VITALS: BP 155/66
[2019-10-06] MEDS: VANCOMYCIN 1GM/NS 250 ML 250 ML IV SCH ×2 (03:31→14:00)
[2019-10-06 04:00] VITALS: BP 155/68
[2019-10-06] MEDS: MEROPENEM 500MG/ NS 50ML 50 ML IV SCH ×2 (05:41→13:10)
[2019-10-06] MEDS: TRAMADOL HCL 50 MG TAB PO PRN (05:43)
[2019-10-06] MEDS: INSULIN REGULAR, HUMAN 100 UNIT/1 ML 3ML VIAL SQ SCH ×3 (07:30→16:30)
--- NOTE | 2019-10-06 07:35 | NUR ---
PATIENT IN BED RESTING WITH NO S/S OF DISTRESS. DRESSING DRY AND INTACT TO LEFT LEG. ALL PERSONAL ITEMS CLOSE TO PATIENT. BED IN LOWER POSITION, CALL LIGHT AT REACH.
[2019-10-06 07:40] VITALS: BP 131/67
[2019-10-06 08:19] VITALS: BP 131/67
[2019-10-06] MEDS: LISINOPRIL 2.5 MG TAB PO SCH (09:00)
[2019-10-06] MEDS: METOPROLOL SUCCINATE 25 MG TAB XL PO SCH ×2 (09:00→17:00)
[2019-10-06] MEDS: DULOXETINE HCL 30 MG DELAYED RELEASE PO SCH (09:12)
[2019-10-06] MEDS: ASPIRIN 81 MG CHEW TAB PO SCH (09:12)
[2019-10-06] MEDS: GABAPENTIN 300 MG CAP PO SCH ×2 (09:12→14:54)
[2019-10-06] MEDS: LORATADINE 10 MG TAB PO SCH (09:12)
[2019-10-06] MEDS: PANTOPRAZOLE SOD 40 MG TABEC PO SCH (09:12)
--- NOTE | 2019-10-06 11:39 | Progress Note ---
DATE: Internal Medicine Progress Note SUBJECTIVE: The patient is doing well. No significant complaints. PHYSICAL EXAMINATION: VITAL SIGNS: Blood pressure 131/67, temperature 98 degrees, heart rate 54 per minute, respiratory rate 18 per minute, and oxygen saturation 98%. HEART: Regular rhythm. Normal S1, S2 sound. LUNGS: Clear bilaterally. ABDOMEN: Soft. EXTREMITIES: Dressing on the open wounds that he had on the left thigh on the left leg. LABORATORY DATA: On the blood work, we have CBC; white blood count 5.29, hemoglobin 10.1, hematocrit 31.7, and platelet count 262,000. Blood sugar 93. Microbiology showed blood culture negative for 5 days. Wound culture shows Staphylococci aureus, Enterococcus faecalis, Enterobacter cocci, Klebsiella pneumoniae, and Stenotrophomonas maltophilia. FINAL IMPRESSION: 1. Cellulitis on the left leg. 2. Hypertension. 3. Coronary artery disease. 4. Peripheral vascular disease. 5. Uncontrolled diabetes mellitus type 2 with diabetic neuropathy. 6. Chronic obstructive pulmonary disease. PLAN OF TREATMENT: The patient is on meropenem 500 mg IV q.8 hours. He is on vancomycin 1 g IV twice a day, Tylenol 325 mg q.4 hours as needed for pain or fever, albuterol and Atrovent q.4 hours as needed for shortness of breath, aspirin 81 mg daily, clonazepam 1 mg three times a day as needed for anxiety, Cymbalta 60 mg daily, Flonase 1-2 sprays daily as needed, gabapentin 600 mg three times a day, continue lisinopril 2.5 mg daily, Claritin 10 mg daily, metoprolol 25 mg twice a day, nicotine patch 21 mg daily, Zofran 4 mg p.o. q.4 hours as needed for nausea and vomiting, Protonix 40 mg daily, simvastatin 40 mg daily, Spiriva 1 inhalation daily, tramadol 50 mg q.6 hours as needed for moderate pain and trazodone 50 mg at bedtime. 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 He only approved for senior care facility that the only option we have besides going home, so we are going to see the patient can go to at least a senior care facility to continue antibiotic and wound care. 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 In the meantime, continue low-salt diet. Continue wound care. Continue physical therapy. MD СЕРГЕЙ Benjamin/ANNEL /[id number]
--- NOTE | 2019-10-06 11:49 | NUR ---
Received order for SNF. CM spoke to pt at bedside. Pt states he does not want to go. Would prefer to go home. States his daughter is able to help him at home. CM informed Dr. Velasquez, who states to set up home health and abx per ID. CM left message for Dr. Delgadillo regarding abx. Awaiting response. ERROL King CM was updated as well.
--- NOTE | 2019-10-06 11:55 | NUR ---
progress luis daniel marley is improving can dc home with augmentin The patient is seen and evaluated. Available labs and notes reviewed. Discussed with staff. REVIEW OF SYSTEMS: No nausea, vomiting, fever, chills, chest pain, shortness of breath, headache, dysuria, polyuria, rash. OBJECTIVE: VITAL SIGNS: Temperature 97, pulse is 65, respiration 18, and blood pressure 128/77. MEDICATIONS/ANTIBIOTICS: Medication list reviewed. As far as Infectious Disease point of view, the patient is on vancomycin IV and Zosyn. Discussed with the nurse in regard to antibiotics and their dosages. LABORATORY STUDIES: No new CBC or BMP from today. Toxicology; vancomycin trough was 18.6 around 1 o'clock in the morning. MICROBIOLOGY STUDIES: Blood culture 09/29/2019 is negative. Wound culture 10/01/2019 showed stenotrophomonas, Staphylococcus which is MSSA and Enterococcus faecalis, which is not VRE. RADIOLOGY STUDIES: No new radiology studies available. PHYSICAL EXAMINATION: GENERAL: Alert and oriented, in no acute distress. CV: S1, S2. CHEST: Equal expansion. Clear to auscultation. No acute distress. ABDOMEN: Soft, nontender. No distention. HEENT: Moist. No pallor. No JVD. EXTREMITIES: Multiple wounds bilateral lower extremities, left worse than right. Also has some wounds under sacral area, which are all on local care, some with necrotic tissue. ASSESSMENT AND PLAN: 1. Cellulitis of the lower extremities. 2. Peripheral vascular disease. 3. Chronic obstructive pulmonary disease. 4. Coronary artery disease. 5. Diabetes mellitus. 6. Diabetic neuropathy. 7. Multidrug resistant wound culture. 8. Currently on vancomycin IV and Zosyn
[2019-10-06 12:19] VITALS: BP 142/67
--- NOTE | 2019-10-06 12:30 | Progress Note ---
DATE: SUBJECTIVE: The patient is seen and evaluated. Available labs and notes reviewed. Discussed with Dr. Delgadillo. Discussed with the patient. REVIEW OF SYSTEMS: He has no complaints. Feels better. No nausea, vomiting, fever, chills, chest pain, shortness of breath. SUBJECTIVE: VITAL SIGNS: Temperature 98.4, pulse is 54, respiration 18, and blood pressure 131/67. MEDICATIONS: Medication list reviewed. From Infectious Disease point of view, the patient is on Merrem and vancomycin. LABORATORY STUDIES: White count of 5.29, hemoglobin 10.1, platelet 262. No new BMP available. MICROBIOLOGY: No new microbiology studies are available. RADIOLOGY STUDIES: No new radiology studies available. PHYSICAL EXAMINATION: GENERAL: Alert and oriented, in no acute distress. CV: S1, S2. CHEST: Equal expansion. Clear to auscultation. No acute distress. ABDOMEN: Soft, nontender. No distention. HEENT: Moist. No pallor. No JVD. EXTREMITIES: Lower extremity wounds, the patient on the left lower extremity all on local care, some have dried up and seem to be scabbing over. The patient has no significant edema of the lower extremities. ASSESSMENT AND PLAN: 1. Cellulitis of lower extremities. 2. Peripheral vascular disease. 3. Chronic obstructive pulmonary disease. 4. Coronary artery disease. 5. Diabetes. 6. Diabetic neuropathy. 7. MDR wound culture. Antibiotic change as stated to vancomycin IV and Merrem. Continue with wound care. Follow with the labs. Follow with an angio. Further management of this patient is based on daily findings on laboratory and physical examination, please refer to chart for more information. MD MEGHAN Van/ANNEL /[id number]
[2019-10-06] MEDS: NICOTINE 21 MG/EA PATCH TOP SCH (12:49)
--- NOTE | 2019-10-06 13:06 | NUR ---
CALL TO PT IN ROOM TO DISCUSS HH OPTIONS. PT STATES HE IS ALREADY ON SERVICE W AN AGENCY, BUT DOES NOT REMEMBER THE NAME OF THE AGENCY. PROVIDED CM HIS DTR'S #; CHELSIE [email or web address]@ [phone]. CALL TO CHELSIE. SHE PROVIDED THE # OF THE AGENCY AND CONTACT; PATRICK. CALL TO [facility] @ OFF: [phone] / FAX: [phone]. [facility] [facility]
--- NOTE | 2019-10-06 15:10 | NUR ---
NOTIFIED THE PT OF [facility] DENIAL BEING OVERTURNED. GAVE INFO. COMPLETED MOT. INFORMED PT I WILL SPEAK W HIS NURSE ABOUT GETTING DC ORDER. PT VERBALIZED UNDERSTANDING.
--- NOTE | 2019-10-06 15:18 | NUR ---
LONG-TERM ACUTE CARE DISCHARGE INFORMATION PATIENT HAS BEEN ACCEPTED TO: NAME: [facility] ADDRESS: [address] [place] [id number] ACCEPTING AUTOMOTIVE SERVICE WRITER: MELISSA BRODY, INTERNAL GRINDER SET UP OPERATOR ACCEPTING MD: AURELIO AVILA MD ROOM: [id number] NURSE CALL REPORT TO: [phone] THE FOLLOWING DOCUMENTS MUST ACCOMPANY PATIENT FOR TRANSFER: COPIED CHART: SALOMÓN PORRAS INFO RECEIVED FROM: JAIR Hanley [facility] ORDER/RECONCILED MED LIST: CAYETANO CESAR [id number] DNR: N/A
--- NOTE | 2019-10-06 15:50 | NUR ---
PATIENT AMBULATED TO THE RESTROOM AND BACK TO BED. CALL LIGHT AT REACH.
[2019-10-06 15:58] VITALS: BP 144/69
== END 2019-10-06 20:06 | DRG 603 ==
LOC: ER 11:08 → ERHOLD 12:18 → MED/SURG3 12:57
PROVIDERS: ADMIT Internal Medicine; ATTEND Internal Medicine
DX: L03.116 Cellulitis of left lower limb (principal); L02.31 Cutaneous abscess of buttock; L97.128 Non-pressure chronic ulcer of left thigh with other specified severity; L97.828 Non-pressure chronic ulcer of other part of left lower leg with other specified severity; Z16.24 Resistance to multiple antibiotics; J44.9 Chronic obstructive pulmonary disease, unspecified; I25.10 Atherosclerotic heart disease of native coronary artery without angina pectoris; E11.51 Type 2 diabetes mellitus with diabetic peripheral angiopathy without gangrene; E11.42 Type 2 diabetes mellitus with diabetic polyneuropathy; E78.5 Hyperlipidemia, unspecified; F17.210 Nicotine dependence, cigarettes, uncomplicated; Z91.81 History of falling; A60.00 Herpesviral infection of urogenital system, unspecified; Z79.84 Long term (current) use of oral hypoglycemic drugs; Z79.82 Long term (current) use of aspirin; I83.028 Varicose veins of left lower extremity with ulcer other part of lower leg; B96.89 Other specified bacterial agents as the cause of diseases classified elsewhere; B95.61 Methicillin susceptible Staphylococcus aureus infection as the cause of diseases classified elsewhere; B95.2 Enterococcus as the cause of diseases classified elsewhere; B96.1 Klebsiella pneumoniae [K. pneumoniae] as the cause of diseases classified elsewhere
CPT/HCPCS: 36415; 71046; 75635; 80053; 80061; 80202; 81001; 82550; 82553; 82948; 84443; 84484; 85025; 87040; 87071; 87186; 87205; 93005; 93306; 93925; 94640; 94664; 97139; 99284; J0692; J1817; J2270; J2405; J2543; J3370; J7030; J7050; Q9967